=== PATIENT | female | born 1975 | race Caucasian/White ===

== ENCOUNTER 2020-03-27 11:08 | Outpatient (CLI) | payer OTHER, SELFPAY ==
[2020-03-27 11:22] LABS: Basophils Percent Auto 0.4 % (0.2-1.2); Eosinophils Absolute Auto 0.2 K/mm3 (0-0.3); Eosinophils Percent Auto 4.5 % (0-4.4); Hematocrit 39.1 % (37.0-47.0); Immature Granulocyte Absolute 0.01 K/mm3 (0.00-0.031); Immature Granulocyte Percent A 0.2 % (0-0.5); Lymphocytes Absolute Auto 1.74 K/mm3 (0.9-3.2); Lymphocytes Percent Auto 32.9 % (18.3-44.2); Mean Corpuscular HGB Conc 33.2 g/dl (32-36); Mean Corpuscular Hemoglobin 31.6 pg (26-34); Mean Corpuscular Volume 95.1 fl (80-100); Mean Platelet Volume 8.7 fl (7.4-10.4); Monocytes Absolute Auto 0.5 K/mm3 (0.1-0.6); Monocytes Percent Auto 8.7 % (2.6-8.5); Neutrophils Absolute Auto 2.8 K/mm3 (1.3-6.7); Neutrophils Percent Auto 53.3 % (45.5-73.1); Platelet Count Result 259 k/mm3 (150-375); Red Blood Count 4.11 M/mm3 (4.2-5.4); Red Cell Distribution Width 14.1 % (11.5-14.5); White Blood Count 5.3 K/mm3 (4.5-10.0)
[2020-03-29 15:19] LABS: Lyme Disease Ab (IgM), Blot Negative (Negative); Lyme Disease Ab(IgG), Blot Negative (Negative)
== END 2020-03-27 11:09 | disposition home or self-care (01) ==
PROVIDERS: PCP Family Medicine; Visit Provider Physician Assistant Medical
DX: D72.9 Disorder of white blood cells, unspecified (principal)
CPT/HCPCS: 36415; 85025; 86617

== ENCOUNTER 2020-10-27 09:07 | Outpatient (CLI) | payer OTHER, SELFPAY ==
--- NOTE | ~2020-10-27 | MM_ITS ---
EXAMINATION: MM screening latanya BI w penelope HISTORY: Screening TECHNIQUE: Craniocaudal and mediolateral oblique 3-D tomosynthesis images were obtained and synthetic 2-D images were generated. CAD analysis was submitted and interpreted. COMPARISON: 12/01/2018 BREAST PARENCHYMAL COMPOSITION: There are scattered areas of fibroglandular density. FINDINGS: There is no evidence of suspicious mass, calcification, or architectural distortion to sugg est malignancy in either breast. There has been no suspicious interval change. IMPRESSION: 1. No mammographic evidence of malignancy. 2. Recommend routine screening mammography in one year. BI-RADS Category 1: Negative Reviewed, dictated and finalized at location A. 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
== END 2020-10-27 09:08 | disposition home or self-care (01) ==
PROVIDERS: PCP Family Medicine
DX: Z12.31 Encounter for screening mammogram for malignant neoplasm of breast (principal)
CPT/HCPCS: 77063; 77067

== ENCOUNTER 2020-12-11 08:02 | Emergency (ER) | payer OTHER, SELFPAY ==
--- NOTE | 2020-12-11 08:19 | ED.URI ---
HPI - URI/Sore Throat General Chief Complaint: Upper Respiratory Infection Stated Complaint: possible sinus infection Time Seen by Provider: 12/11/20 08:28 Source: patient and RN notes reviewed Mode of arrival: ambulatory Limitations: no limitations History of Present Illness HPI Narrative: 45-year-old female presents concern for 4-day history of nasal congestion, rhinorrhea, facial pressure, cough, chest congestion. 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 Reports she has received the first dose of the code vaccine, has not received second dose. Reports she has been taking Tylenol, Aleve and has not had a fever. She denies loss of taste and smell. She denies shortness of breath MD elicited complaint: cough Related Data Home Medications Medication Instructions Recorded Confirmed fluoxetine [Prozac] 60 mg PO DAILY 12/11/20 12/11/20 levonorgestrel [Mirena] 1 device INTRAUTERINE ONCE 12/11/20 12/11/20 sumatriptan succinate [Imitrex] 100 mg PO ONCE 12/11/20 12/11/20 Allergies Allergy/AdvReac Type Severity Reaction Status Date / Time chlorphentermine Allergy Unknown Unknown Verified 12/11/20 08:26 diphenhydramine Allergy Unknown Unknown Verified 12/11/20 08:26 phenylephrine Allergy Unknown Unknown Verified 12/11/20 08:26 phenylpropanolamine Allergy Unknown Unknown Verified 12/11/20 08:26 Review of Systems Review of Systems: Narrative: CONSTITUTIONAL: Reports malaise. Denies chills, sweats, or fever. EYES: Denies visual changes, redness, or discharge. ENT: Reports rhinorrhea, congestion, sinus pain. Denies otalgia and sore throat. CARDIOVASCULAR: Denies chest pain, palpitations, or edema. RESPIRATORY: Reports cough. Denies dyspnea. GASTROINTESTINAL: Denies abdominal pain, nausea, vomiting, diarrhea SKIN: Denies rash or itching. MUSCULOSKELETAL: Denies myalgia. NEUROLOGIC: Denies headache. All systems reviewed & are unremarkable except as noted in HPI and below PMFSH Past Medical History Medical History BMI 30.0-30.9,adult Healthy female adult Surgical History Surgical History No history of previous surgery Family History Family History Grandparent Cerebrovascular accident, Onset Age: 76 Family history of elevated blood lipids Family history of malignant neoplasm, Onset Age: 67 Family history of lung cancer, Onset Age: 67 Diabetes mellitus Father Hypertension Mother Hypertension Sibling Family history of diabetes mellitus in first degree relative Other Rheumatoid arthritis Other Family history of congestive heart failure Family history of coronary artery disease Social History Social History Smoking status: Never smoker Second hand tobacco smoke exposure: No Alcohol intake: current Gender identity (if verbalized by the patient): Female Comments At time of signature, agree with nursing past medical, surgical, social and family history. There is no relevant family history pertinent to the presenting complaint Exam Narrative: Exam Narrative: GENERAL: Well-appearing, well-nourished, and in no acute distress. HEAD: Normocephalic EYES: PERRLA, conjunctivae clear ENT: Nares clear, turbinates edematous and erythematous, clear discharge. Mucous membranes moist. TM pearly malave with dull light reflex bilaterally; no tragal tenderness. Oropharynx not erythematous without lesions. Tonsils not enlarged and without exudate, no drooling, no hoarseness, no trismus, uvula midline. NECK: Supple. No lymphadenopathy CHEST: Clear to auscultation, breath sounds equal. No wheezing, rhonchi, rales, or stridor. No respiratory distress, speaks in full sentences. HEART: Regular rate and rhythm. No murmur heard. SKIN: Warm, dry, no rash. NEURO: Alert and oriented x3. PSYCH: Normal mood and affect Course Cou
[2020-12-11 08:23] VITALS: BP 132/80; PULSE 85; RESP 16; TEMP 36.9; O2SAT 99
== END 2020-12-11 08:43 | disposition home or self-care (01) ==
PROVIDERS: Emergency Provider Nurse Practitioner; PCP Family Medicine
DX: U07.1 COVID-19 (principal)
CPT/HCPCS: 87426; 99213; C9803; G0463

== ENCOUNTER 2021-01-25 14:40 | Emergency (ER) | payer OTHER, SELFPAY ==
--- NOTE | ~2021-01-25 | XR_ITS ---
EXAMINATION: XR chest 1V portable INDICATION: Fever TECHNIQUE: Portable AP chest at 1508 hours COMPARISON: 09/06/2015 FINDINGS: The lungs are free of acute opacities. There is no pleural effusion or pneumothorax. The ca rdiomediastinal silhouette is normal. The visualized bones and soft tissues are unremarkable. IMPRESSION: 1. No acute cardiopulmonary abnormality. Reviewed, dictated and finalized at location A. CTOR OF PULMONARY UNIT
[2021-01-25 14:47] VITALS: BP 130/75; PULSE 126; RESP 14; TEMP 37.1; O2SAT 98
[2021-01-25 15:11] VITALS: BP 114/63; PULSE 114; RESP 19; O2SAT 100
[2021-01-25 15:13] LABS: Basophils Percent Auto 0.3 % (0.2-1.2); Eosinophils Percent Auto 0.1 % (0-4.4); Hematocrit 40.1 % (37.0-47.0); Hemoglobin 13.4 g/dL (12.0-15.0); Immature Granulocyte Absolute 0.04 K/mm3 (0.00-0.031); Immature Granulocyte Percent A 0.4 % (0-0.5); Lymphocytes Absolute Auto 0.78 K/mm3 (0.9-3.2); Lymphocytes Percent Auto 6.9 % (18.3-44.2); Mean Corpuscular HGB Conc 33.4 g/dl (32-36); Mean Corpuscular Hemoglobin 31.2 pg (26-34); Mean Corpuscular Volume 93.5 fl (80-100); Mean Platelet Volume 8.7 fl (7.4-10.4); Monocytes Absolute Auto 0.8 K/mm3 (0.1-0.6); Monocytes Percent Auto 7.3 % (2.6-8.5); Neutrophils Absolute Auto 9.7 K/mm3 (1.3-6.7); Platelet Count Result 247 k/mm3 (150-375); Red Blood Count 4.29 M/mm3 (4.2-5.4); Red Cell Distribution Width 13.3 % (11.5-14.5); White Blood Count 11.4 K/mm3 (4.5-10.0)
[2021-01-25] MEDS: SODIUM CHLORIDE 0.9% IV 1,000 ML 999 ML IV CONT (15:22)
[2021-01-25 15:23] LABS: INR 1.1; Prothrombin Time 14.3 Seconds (11.1-14.7)
[2021-01-25 15:24] LABS: Partial Thromboplastin Time 31.2 SECONDS (22.3-36.8)
[2021-01-25 15:27] LABS: Lactic Acid Reflex 1.2 mmol/L (0.7-2.1)
[2021-01-25 15:36] LABS: Appearance Urine Cloudy (Clear); Bilirubin Urine 1+ (Negative); Blood Urine 3+ (Negative); Color Urine Yellow (Yellow); Glucose Urine UA Negative (Negative); Ketones Urine Trace mg/dL (Negative); Leukocyte Esterase Ur 3+ LEU/UL (Negative); Nitrate Urine Positive (Negative); Protein Urine 3+ mg/dL (Negative); Specific Grav Ur 1.025 (1.001-1.035); pH Urine 5.5 (5.0-9.0)
[2021-01-25 15:39] LABS: Add Urine Microscopic? YES
[2021-01-25 15:41] LABS: Squamous Epithelial Cell Urine Few /hpf (Few); WBC Urine >75 /hpf (0-3)
[2021-01-25 15:43] VITALS: BP 113/69; PULSE 93; RESP 18; O2SAT 97
[2021-01-25 15:43] LABS: Bacteria Urine 1+ /hpf
[2021-01-25 16:34] LABS: Alanine Aminotransferase 18 U/L (4-35); Albumin Level 4.3 g/dL (3.5-5.1); Alkaline Phosphatase 116 U/L (38-126); Anion Gap 7 mmol/L (8-16); Aspartate Amino Transferase 21 U/L (14-36); Bilirubin,Total 1.1 mg/dL (0.2-1.3); Blood Urea Nitrogen 15 mg/dL (7-17); Calcium 9.8 mg/dL (8.4-10.2); Carbon Dioxide 27 mmol/L (22-30); Chloride 104 mmol/L (98-107); Estimated CRCL calculation 79 ml/min; Estimated Glomerular Filt Rate 60; Glucose 133 mg/dL (65-105); Lipase 24 U/L (23-300); Potassium 4.1 mmol/L (3.4-5.0); Sodium 138 mmol/L (137-145)
--- NOTE | 2021-01-25 16:34 | ED.FEVER ---
HPI - Fever General Chief Complaint: Fever Stated Complaint: fever Time Seen by Provider: 01/25/21 14:56 History of Present Illness HPI Narrative: Patient is a 45-year-old female who presents to the ER with fevers. Ongoing for 2 days. Associate with night sweats. She reports urinary frequency but no burning. No flank pain. Patient has been immunized against Covid but has also had Covid in the past. No known flu exposures. She does endorse body aches. No alleviating factors and due to persistent nature fevers opted to come for evaluation. Related Data Home Medications Medication Instructions Recorded Confirmed levonorgestrel [Mirena] 1 device INTRAUTERINE ONCE 12/11/20 12/11/20 sumatriptan succinate [Imitrex] 100 mg PO ONCE 12/11/20 12/11/20 Allergies Allergy/AdvReac Type Severity Reaction Status Date / Time chlorphentermine Allergy Unknown Unknown Verified 01/25/21 15:11 diphenhydramine Allergy Unknown Unknown Verified 01/25/21 15:11 phenylephrine Allergy Unknown Unknown Verified 01/25/21 15:11 phenylpropanolamine Allergy Unknown Unknown Verified 01/25/21 15:11 Review of Systems Review of Systems: All systems reviewed & are unremarkable except as noted in HPI and below Constitutional: Constitutional: Denies chills, Denies fatigue and Reports fever(s) Comments: Night sweats ENT: Denies nasal congestion and Denies sore throat Cardiovascular: Cardiovascular: Denies chest pain, Denies rapid heart rate and Denies radiating jaw, neck or arm pain Respiratory: Respiratory: Denies cough and Denies dyspnea Gastrointestinal: Gastrointestinal: Denies abdominal pain, Denies nausea and Denies vomiting Genitourinary: Genitourinary: Reports nocturia, Denies dysuria and Denies flank pain PMF Past Medical History Medical History (Updated 01/25/21 @ 16:46 by Chris Germain MD) Anxiety disorder, unspecified Behcet's disease BMI 29.0-29.9,adult BMI 30.0-30.9,adult Healthy female adult Migraine, unspecified, intractable, with status migrainosus Palindromic rheumatism Surgical History Surgical History No history of previous surgery Family History Family History Grandparent Cerebrovascular accident, Onset Age: 76 Family history of elevated blood lipids Family history of malignant neoplasm, Onset Age: 67 Family history of lung cancer, Onset Age: 67 Diabetes mellitus Father Hypertension Mother Hypertension Sibling Family history of diabetes mellitus in first degree relative Other Rheumatoid arthritis Other Family history of congestive heart failure Family history of coronary artery disease Social History Social History Smoking status: Former smoker Second hand tobacco smoke exposure: No Alcohol intake: current Gender identity (if verbalized by the patient): Female Exam Narrative: Exam Narrative: GENERAL: Well-appearing, well-nourished, and in no acute distress. HEAD: Normocephalic, atraumatic. ENT: Mucous membranes moist. CHEST: Clear to auscultation. No respiratory distress. HEART: Tachycardic and regular. Normal peripheral pulses. ABDOMEN: Soft, nontender, nondistended. No CVA tenderness EXTREMITIES: Normal range of motion. No edema. SKIN: Warm, finally of sweat, no rash. NEURO: Alert and oriented x3. Course Reevaluation(s) Reevaluation #1: Patient informed of results. Ceftriaxone given here. Tachycardia improved with IV fluid. Will treat as early pyelonephritis given the fever night sweats. Date: 01/25/21 Time: 16:40 Vital Signs Vital signs: Vital Signs Temperature 98.8 F 01/25/21 14:47 Pulse Rate 126 H 01/25/21 14:47 Respiratory Rate 14 01/25/21 14:47 Blood Pressure 130/75 01/25/21 14:47 Pulse Oximetry 98 01/25/21 14:47 Temperature 98.8 F 01/25/21 14:47 Pulse Rate 93 01/25/21 15:43 Respiratory Rate
[2021-01-25 16:45] VITALS: BP 107/69; PULSE 93; RESP 17; O2SAT 97
[2021-01-25 17:00] LABS: CRP 29.3 mg/dL (<1.0)
== END 2021-01-25 16:52 | disposition home or self-care (01) ==
PROVIDERS: Emergency Medicine Emergency Medical Services; Emergency Provider Emergency Medicine; PCP Family Medicine
DX: N39.0 Urinary tract infection, site not specified (principal); F41.9 Anxiety disorder, unspecified; M12.30 Palindromic rheumatism, unspecified site; Z86.16 Personal history of COVID-19; Z87.891 Personal history of nicotine dependence
CPT/HCPCS: 36415; 71045; 80053; 81001; 83605; 83690; 85025; 85610; 85730; 86140; 87040; 87077; 87086; 87088; 87186; 87804; 96361; 96365; 99284; J0696; J7030

== ENCOUNTER 2022-09-06 07:08 | Outpatient (CLI) | payer OTHER, SELFPAY ==
[2022-09-06 07:43] LABS: Basophils Absolute Auto 0.1 K/mm3 (0.0-0.1); Basophils Percent Auto 0.9 % (0.2-1.2); Eosinophils Absolute Auto 0.3 K/mm3 (0-0.3); Eosinophils Percent Auto 5.2 % (0-4.4); Hematocrit 41.3 % (37.0-47.0); Hemoglobin 13.8 g/dL (12.0-15.0); Immature Granulocyte Absolute 0.02 K/mm3 (0.00-0.031); Immature Granulocyte Percent A 0.4 % (0-0.5); Lymphocytes Absolute Auto 2.41 K/mm3 (0.9-3.2); Lymphocytes Percent Auto 43.3 % (18.3-44.2); Mean Corpuscular HGB Conc 33.4 g/dl (32-36); Mean Corpuscular Hemoglobin 31.6 pg (26-34); Mean Corpuscular Volume 94.5 fl (80-100); Mean Platelet Volume 8.4 fl (7.4-10.4); Monocytes Absolute Auto 0.5 K/mm3 (0.1-0.6); Monocytes Percent Auto 8.1 % (2.6-8.5); Neutrophils Absolute Auto 2.3 K/mm3 (1.3-6.7); Neutrophils Percent Auto 42.1 % (45.5-73.1); Platelet Count Result 286 k/mm3 (150-375); Red Blood Count 4.37 M/mm3 (4.2-5.4); Red Cell Distribution Width 13.7 % (11.5-14.5); White Blood Count 5.6 K/mm3 (4.5-10.0)
[2022-09-06 07:57] LABS: Alanine Aminotransferase 38 U/L (6-35); Albumin Level 4.4 g/dL (3.5-5.1); Alkaline Phosphatase 98 U/L (38-126); Anion Gap 9 mmol/L (8-16); Aspartate Amino Transferase 35 U/L (14-36); Bilirubin,Total 0.8 mg/dL (0.2-1.3); Blood Urea Nitrogen 17 mg/dL (7-17); Calcium 9.2 mg/dL (8.4-10.2); Carbon Dioxide 26 mmol/L (22-30); Chloride 105 mmol/L (98-107); Cholesterol 245 mg/dL (0-200); Estimated Glomerular Filt Rate > 60; Glucose 88 mg/dL (65-110); HDL Direct 57 mg/dL; Potassium 4.1 mmol/L (3.4-5.0); Sodium 140 mmol/L (137-145); Triglycerides 114 mg/dL (<150)
[2022-09-06 08:10] LABS: LDL Cholesterol Direct 146 mg/dL
== END 2022-09-06 07:09 | disposition home or self-care (01) ==
LOC: ANHLAB 07:10
PROVIDERS: PCP Family Medicine; Visit Provider Family Medicine
DX: R73.09 Other abnormal glucose (principal); F41.9 Anxiety disorder, unspecified; K21.9 Gastro-esophageal reflux disease without esophagitis; Z13.220 Encounter for screening for lipoid disorders
CPT/HCPCS: 36415; 80048; 80061; 80076; 83036; 84443; 85025

== ENCOUNTER → 2023-05-12 11:35 | Outpatient (CLI) | payer OTHER, SELFPAY ==
--- NOTE | ~2023-05-12 | XR_ITS ---
XR ankle LT min 3V DATE: 05/12/2023 11:58 INDICATION: Pain and swelling of the lateral ankle after twisting injury TECHNIQUE: 4 views COMPARISON: None FINDINGS: There is mild lateral soft tissue swelling. No fracture or dislocation of the ankle or disr uption of the ankle mortise is detected. Mild plantar and posterior calcaneal enthesopathy. IMPRESSION: Lateral soft tissue swelling; no fracture or dislocation Reviewed, dictated and finalized at location A.
== END ==
PROVIDERS: PCP Chiropractor; Visit Provider Chiropractor
DX: S82.65XA Nondisplaced fracture of lateral malleolus of left fibula, initial encounter for closed fracture (principal); X58.XXXA Exposure to other specified factors, initial encounter
CPT/HCPCS: 73610

== ENCOUNTER 2023-12-22 06:45 | Outpatient (CLI) | payer OTHER, SELFPAY ==
--- NOTE | ~2023-12-22 | XR_ITS ---
XR hip BI 2V w AP pelvis DATE: 12/22/2023 07:15 INDICATION: Low back pain TECHNIQUE: AP pelvis. AP and lateral views of both hips. COMPARISON: None FINDINGS: IUD is present. Severe degenerative disc disease at L4-5 and L5-S1. Normal alignment at the pubic symphysis and sacroiliac joints. No pelvic fracture or bone destruction. No fracture or dislocation, avascular necrosis or bone destr uction of the hips. IMPRESSION: Dextroscoliosis and multi-level degenerative disc disease of lumbar spine No significant abnormality of pelvis or either hip Reviewed, dictated and finalized at location B. 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
--- NOTE | ~2023-12-22 | XR_ITS ---
XR lumbar spine 6V w bending DATE: 12/22/2023 07:15 INDICATION: Low back pain TECHNIQUE: Weightbearing flexion and extension lateral views. AP, lateral, bilateral oblique views, c oned lateral lumbosacral view COMPARISON: None FINDINGS: Mild thoracolumbar dextroscoliosis. Osteopenia. There is approximately 6 mm anterolisthesis at L4-5, relatively stable in flexion, extension and neut ral positions. There is severe degenerative disc disease at L4-5 with near obliteration of L4-5 disc space, eburnati on of the apposing vertebral endplates and vacuum phenomenon. Moderately severe degenerative disease at L5-S1. Mild to moderate degenerative disc disease at L1-2 and L3-4, minimal degenerative disc disease at L2- 3. No spondylolysis. No bone destruction is evident. The pedicles appear intact. Normal alignment at the sacroiliac joints. IUD is noted. IMPRESSION: Grade 1 anterolisthesis at L4-5 Multilevel degenerative disc disease, most severe at L4-5 and L5-S1 Reviewed, dictated and finalized at location B. 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
== END 2023-12-22 06:46 | disposition home or self-care (01) ==
PROVIDERS: PCP Family Medicine; Visit Provider Family Medicine
DX: M51.36 Other intervertebral disc degeneration, lumbar region (principal); M51.37 Other intervertebral disc degeneration, lumbosacral region
CPT/HCPCS: 72114; 73521

== ENCOUNTER 2024-01-30 07:29 | Outpatient (CLI) | payer OTHER, SELFPAY ==
--- NOTE | ~2024-01-30 | MR_ITS ---
MRI of the lumbar spine Clinical History: Spondylosis Technique: Axial T2-weighted images, and sagittal T1-weighted, T2-weighted, and T2 fat-sat images wer e acquired. Findings: No fracture identified. There is 5 mm anterolisthesis of L4 over L5. There is extensive haley ctive marrow edema at the L4-L5 disc space due to underlying degenerative disc disease. At L1-L2, there is no disc bulge or herniation. There is moderate facet arthropathy. No central canal stenosis or neural foraminal narrowing. At L2-L3, there is no disc bulge or herniation. There is moderate facet arthropathy. No central canal stenosis or neural foraminal narrowing. At L3-L4, disc bulge and advanced facet arthropathy result in mild central canal stenosis/thecal sac compression. There is mild left neural foraminal narrowing. Right neural foramen preserved. At L4-L5, there is severe degenerative disc narrowing. Diffuse disc bulge and severe facet arthropath y result in severe spinal canal stenosis/thecal sac compression. There is severe bilateral neural for aminal comprise, left worse than right. At L5-S1, there is advanced degenerative disc narrowing. There is mild disc bulge and moderate facet arthropathy. No central canal stenosis. There is moderate right neural foraminal narrowing. Left neur al foramen preserved. Paravertebral soft tissues are unremarkable. Impression: Severe degenerative spondylosis at L4-L5, with associated 5 mm anterolisthesis at this level. Moderate degenerative spondylosis at L3-L4 and L5-S1. Reviewed, dictated and finalized at [facility]. Impression: Severe degenerative spondylosis at L4-L5, with associated 5 mm anterolisthesis at this level. Moderate degenerative spondylosis at L3-L4 and L5-S1.
== END 2024-01-30 07:30 | disposition home or self-care (01) ==
PROVIDERS: PCP Family Medicine; Visit Provider Family Medicine
DX: M47.816 Spondylosis without myelopathy or radiculopathy, lumbar region (principal)
CPT/HCPCS: 72148

== ENCOUNTER 2024-08-07 09:07 | Outpatient (CLI) | payer OTHER, SELFPAY ==
[2024-08-07 09:42] LABS: Hematocrit 42.4 % (37.0-47.0); Hemoglobin 14.3 g/dL (12.0-15.0); Mean Corpuscular HGB Conc 33.7 g/dl (32-36); Mean Corpuscular Hemoglobin 32.9 pg (26-34); Mean Corpuscular Volume 97.7 fl (80-100); Mean Platelet Volume 8.6 fl (7.4-10.4); Platelet Count Result 278 k/mm3 (150-375); Red Blood Count 4.34 M/mm3 (4.2-5.4); Red Cell Distribution Width 13.9 % (11.5-14.5); White Blood Count 4.9 K/mm3 (4.5-10.0)
[2024-08-07 09:54] LABS: Alanine Aminotransferase 40 U/L (6-35); Albumin Level 4.6 g/dL (3.5-5.1); Alkaline Phosphatase 95 U/L (38-126); Anion Gap 9 mmol/L (4-12); Aspartate Amino Transferase 39 U/L (14-36); Bilirubin,Total 1.1 mg/dL (0.2-1.3); Blood Urea Nitrogen 12 mg/dL (7-17); Calcium 9.3 mg/dL (8.4-10.2); Carbon Dioxide 26 mmol/L (22-30); Chloride 102 mmol/L (98-107); Cholesterol 246 mg/dL (0-200); Estimated Glomerular Filt Rate > 60; Glucose 80 mg/dL (65-110); HDL Direct 74 mg/dL; Potassium 4.1 mmol/L (3.4-5.0); Sodium 137 mmol/L (137-145); Triglycerides 119 mg/dL (<150)
[2024-08-07 10:05] LABS: LDL Cholesterol Direct 132 mg/dL
[2024-08-10 05:28] LABS: GGT 46 U/L (3-55)
== END 2024-08-07 09:08 | disposition home or self-care (01) ==
LOC: ANHLAB 09:08
PROVIDERS: PCP Family Medicine; Visit Provider Family Medicine
DX: F41.9 Anxiety disorder, unspecified (principal); Z13.220 Encounter for screening for lipoid disorders; K21.9 Gastro-esophageal reflux disease without esophagitis; R73.09 Other abnormal glucose
CPT/HCPCS: 36415; 80048; 80061; 80076; 82977; 83036; 84443; 85027

== ENCOUNTER 2024-10-12 08:18 | Outpatient (CLI) | payer OTHER, SELFPAY ==
--- NOTE | ~2024-10-12 | MM_ITS ---
EXAMINATION: MM screening latanya BI w penelope HISTORY: Screening TECHNIQUE: Craniocaudal and mediolateral oblique 3-D tomosynthesis images were obtained and synthetic 2-D images were generated. CAD analysis was submitted and interpreted. COMPARISON: Comparison to multiple prior studies sequentially, with oldest reviewed study dated 10/17. BREAST PARENCHYMAL COMPOSITION: Not dense: There are scattered areas of fibroglandular density. FINDINGS: There is no evidence of suspicious mass, calcification, or architectural distortion to sugg est malignancy in either breast. There has been no suspicious interval change. IMPRESSION: 1. No mammographic evidence of malignancy. 2. Recommend routine screening mammography in one year. BI-RADS Category 1: Negative Reviewed, dictated and finalized at location B. 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
== END 2024-10-12 08:19 | disposition home or self-care (01) ==
LOC: ANHIMG 08:23
PROVIDERS: PCP Family Medicine; Visit Provider Nurse Practitioner Obstetrics & Gynecology
DX: Z12.31 Encounter for screening mammogram for malignant neoplasm of breast (principal)
CPT/HCPCS: 77063; 77067

== ENCOUNTER 2024-11-01 00:49 | Day surgery (SDC) | payer OTHER, SELFPAY ==
[2024-10-25 14:24] VITALS: BMI 25.1
--- NOTE | 2024-10-25 14:29 | PC.NURSE ---
Report to the Outpatient Waiting Room, entrance under the green pavilion located off [facility], at time _0900_ on date _[id number]_. Planned Procedure Time: _1000_.? Time changes happen often and if your time is changed the preop area will call you the afternoon before. - You and your visitor will be asked to self-screen and do not enter if you have any COVID symptoms. Please call surgeon if you need to reschedule. - A mask is optional within the hospital at this time. Eat a light breakfast then no food or drink after 8am. No smoking. This includes no chewing gum, candy or mints. Take only the following medications with a SIP of water on the morning of surgery: Take medications per regular schedule. DO NOT STOP ANY OF YOUR OTHER PRESCRIPTION MEDICATIONS PRIOR TO SURGERY EXCEPT THE FOLLOWING Medications to discontinue per physician ____Patient stopping Aspirin 1 week before proceedure per Dr Medel's office. Date to take last dose Please no make-up, nail persian, hairspray, perfume, deodorant, or body powder the day of surgery.? No jewelry (including any body piercings) or valuables the day of surgery, leave them at home.? Please take a shower or bath the night before, or the morning of, surgery with an antibacterial soap.? Wear comfortable, loose fitting clothing.? - Jewelry must be removed prior to entering the operating room.? Rings and piercings that are not removed may be cut off. - The hospital will not accept responsibility for valuables.? - Please leave all valuables, including medications, at home the day of surgery. If you are going home after surgery, a licensed driver guide must drive you home.? - NO public transportation without another adult if you receive anesthesia. - We recommend that an adult stay with you for 24 hours following discharge. - We also recommend that you do not drive, make important decision, drink alcoholic beverages, or take any drugs that were not prescribed by your health care provider for at least 24 hours after your discharge time. Follow any additional instructions given to you from your surgeon. Telephone instructions given to __Kelly__and asked if any additional questions and then verbalized understanding. Patient advised to call surgeon office or pre surgery nurse liaison [phone] if any additional questions.
--- NOTE | ~2024-11-01 | XR_ITS ---
EXAMINATION: XR fluoroscopy no charge DATE: 11/01/2024 10:35 INDICATION: Chronic low back pain. Lumbosacral spondylosis. TECHNIQUE: 10 intraoperative fluoroscopic views of the lumbar spine were obtained. I was not present. Fluoroscopy exposure time was 32 seconds. COMPARISON: None. FINDINGS: There is severe lumbar spondylosis. There are bilateral needles with contrast injections fo r bilateral lumbar medial branch/dorsal ramus blocks at L3, L4, and L5. IMPRESSION: 1. Bilateral medial branch/dorsal ramus blocks at L3, L4, and L5. Reviewed, dictated and finalized at location A. [facility]
--- NOTE | 2024-11-01 05:21 | P.HP_ITS ---
History of Present Illness History of Present Illness Consent: Risks, benefits, and alternatives have been discussed and questions answered. Patient agrees to proceed with procedure. Chief complaint: lumbosacral spondylosis, chronic low back pain Narrative: Lisa Ritter is a 49 year old female with chronic, recalcitrant and disabling bilateral lumbosacral back pain secondary to degenerative spondylosis with failure to respond to aggressive conservative measures including PT, oral and topical analgesics, opioid and nonopioid analgesics, rest, time and activity/behavioral modification over the past 1-2 years who presents for diagnostic/prognostic medial branch blocks of the bilateral L3, L4, L5 medial branches/dorsal ramus(#1) addressing the ipsilateral L4-5, L5-S1 facet joints under fluoroscopic guidance and with contrast control. Review of Systems Review of Systems: Patient denies any new infectious, allergic, cardiopulmonary, neurologic or constitutional symptoms or changes in activity tolerance or exercise capacity including new or progressive SOB/COLLADO, peripheral edema, productive cough, dysuria, nausea/vomiting, diarrhea, weight change, fevers/chills/night sweats, new or progressive neurologic deficit, cognitive or mood changes since last seen, except as documented in the HPI. [facility] Past Medical History Medical History Anxiety disorder, unspecified Broken rib Elevated glucose Healthy female adult Low back pain Lumbar spondylosis Migraine, unspecified, intractable, with status migrainosus Palindromic rheumatism Screening for lipid disorders Shift work sleep disorder Surgical History Surgical History Hx of tonsillectomy No history of previous surgery Family History Family History Grandparent Cerebrovascular accident, Onset Age: 76 Family history of elevated blood lipids Family history of malignant neoplasm, Onset Age: 67 Family history of lung cancer, Onset Age: 67 Diabetes mellitus Father Hypertension Diabetes mellitus Mother Hypertension Thyroid activity decreased Pacemaker Sibling Family history of diabetes mellitus in first degree relative Diabetes mellitus Other Rheumatoid arthritis Other Family history of congestive heart failure Family history of coronary artery disease Social History Social History Smoking packs per day: 0.5 Smoking cigarettes per day: 10.0 Smoking status: Current every day smoker Tobacco type: cigarettes Second hand tobacco smoke exposure: No Alcohol intake: current Substance use: never Substance use type: does not use Do You Feel Safe in your Home?: Yes Lack of Transportation: No Lack of Food: Never True Current Housing: I Have Housing Concerned About Future Housing: No Difficulty Paying Gas/Electric Bills: No Difficulty Paying for Meds: No Currently Unemployed: No Education: Bachelor's Degree Difficulty w/ Childcare or Family Care: No Living arrangements: with family Occupation/Education: occupation 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 Gender identity (if verbalized by the patient): Female Meds Home Medications and Allergies Home Medications ?Medication ?Instructions ?Recorded ?Confirmed ?Type levonorgestrel 21 mcg/24 hr (up to 1 device intrauterine ONCE 12/11/20 10/25/24 History 8 years) 52 mg intrauterine device (Mirena) ibuprofen 800 mg tablet 800 mg PO TID PRN pain #270 tabs 04/09/22 10/25/24 Rx hydroxyzine HCl 50 mg tablet See Rx Instructions .Route 07/18/23 10/25/24 Rx .COMPLEX #30 tabs ascorbic acid (vitamin C) 500 mg 500 mg PO DAILY 04/01/24 10/25/24 History capsule calcium carbonate 500 mg PO DAILY 04/01/24 10/25/24 History milk thistle 150 mg capsule 150 mg PO BID 04/01/24 10/25/24 History Se--19 29 mg iron-1 mg See Rx Instructions .Route 07/12/24 10/25/24 Rx tablet (PNV 119-iron fum-folic .COMPLEX #30 tabs acid) aspirin 325 mg tablet 325 mg PO DAILY 08/10/24 10/25/24 History lorazepam 0.5 mg tablet (Ativan) 0.5 mg PO BID PRN anxiety #60 tabs 08/10/24 10/25/24 Rx melatonin 1 mg tablet 1 mg PO QHS 08/10/24 10/25/24 History pantoprazole 40 mg tablet,delayed 40 mg PO QAM 08/10/24 10/25/24 History release (Protonix) sumatriptan succinate 100 mg 100 mg PO ONCE PRN migraine 08/10/24 10/25/24 Rx tablet (Imitrex) headache #10 tabs ondansetron HCl 4 mg tablet 4 mg PO Q8H PRN nausea and 09/22/24 10/25/24 Rx vomiting #20 tabs cholecalciferol (vitamin D3) 125 125 mcg PO DAILY 10/25/24 10/25/24 History mcg (5,000 unit) tablet (Vitamin D3) cyanocobalamin (vitamin B-12) 5,000 mcg sublingual DAILY 10/25/24 10/25/24 History 5,000 mcg sublingual tablet (Vitamin B-12) magnesium 200 mg tablet 200 mg PO DAILY 10/25/24 10/25/24 History vitamin E 400 unit tablet 400 unit PO DAILY 10/25/24 10/25/24 History zinc 50 mg tablet 50 mg PO DAILY 10/25/24 10/25/24 History fluoxetine 20 mg capsule See Rx Instructions .Route 10/31/24 Rx .COMPLEX #90 caps fluoxetine 40 mg capsule See Rx Instructions .Route 10/31/24 Rx .COMPLEX #90 caps Allergies Allergy/AdvReac Type Severity Reaction Status Date / Time chlorphentermine Allergy Unknown Unknown Verified 10/25/24 14:17 diphenhydramine Allergy Unknown Unknown Verified 10/25/24 14:17 phenylephrine Allergy Unknown Unknown Verified 10/25/24 14:17 phenylpropanolamine Allergy Unknown Unknown Verified 10/25/24 14:17 Exam Narrative: The patient's physical exam is essentially unchanged from prior examination on 08/16/2024. Specifically, patient demonstrates normal lung capacity, tidal volume and respiratory rate without wheezes, crackles, rales or rubs. Heart rate and rhythm are regular without murmurs, gallops or rubs. No JVD. Pulses 2+ globally without increasing peripheral edema. AAOx3 with no evidence of confusion, intoxication or altered mental state, NC/AT without acute distress or altered consciousness. Speech, cognition, mood, insight and judgment at baseline and within normal limits. Assessment and Plan Assessment and plan (1) Lumbosacral spondylosis: Code(s): M47.817 - Spondylosis without myelopathy or radiculopathy, lumbosacral region Status: Acute (2) Chronic low back pain: Code(s): M54.50 - Low back pain, unspecified; G89.29 - Other chronic pain Status: Acute Plan proceed as planned with diagnostic/prognostic medial branch/dorsal ramus blocks at L3, L4, L5 ( # 1) A dressing the bilateral L4-5, L5-S1 facet joints under fluoroscopic guidance with contrast control.
--- NOTE | 2024-11-01 05:25 | WPDHPUPDATE1 ---
History and Physical Update Update Date/Time: 11/01/24 05:25 History and Physical has been reviewed, including an updated exam of the patient. There are NO changes in the patient's condition. Risks, benefits, and alternatives have been discussed and questions answered. Patient agrees to proceed with procedure.
--- NOTE | 2024-11-01 05:26 | W.PM.PROC2 ---
Procedure Note - Detailed Date of Procedure 11/01/24 Pre-op Diagnosis lumbosacral spondylosis, chronic low back pain Post-op Diagnosis Same Procedure Performed Diagnostic bilateral Lumbar Medial Branch/Dorsal Ramus Blocks at L3, L4, L5 Treating the bilateral L4-5, L5-S1 Facet Joints Under Fluoroscopic Guidance and with Contrast Control. ( 4 levels blocked). Surgeon Dilshad Medel MD Document Control Supervisor None. Anesthesia Local Description of Procedure INFORMED CONSENT: Risks, benefits and alternatives to the procedure were discussed in detail with the patient who expressed explicit understanding and consent to proceed. Patient was informed verbally and in written form regarding the risks associated with the procedure including the low risk of serious infection, bleeding/bruising, allergic reaction, nerve or organ injury, paralysis, procedural site pain or discomfort, worsening pain and/or mobility, failure to treat and/or disfigurement. The patient expressed explicit understanding and consent to proceed. All materials required for the procedure were available prior to procedure start. Site and side were marked prior to procedure and confirmed in the presence of the patient. PROCEDURE IN DETAIL: The patient was brought to the procedural suite and placed in the prone position. Patient was made comfortable with use of pillows under the head/chest, hips and ankles. Skin overlying the injection site on the affected side(s) was prepared broadly with ChloraPrep applicator and draped in a sterile manner. Aseptic technique was used throughout. The endplates of the vertebral bodies at the site(s) of interest were aligned in the AP view. Ipsilateral oblique angulation was utilized to optimize visualization of the intersection between the superior articulating process and transverse process at each target site. Local anesthesia was established by infiltration with approximately 5 mL of 1% lidocaine via a 1-1/2 inch 27-gauge needle. A 25-gauge 3.5 inch Quincke spinal needle was advanced until the needle tip contacted periosteum at the target site, right L3. Lateral view was utilized to confirm the appropriate placement of the needle tip just anterior to the facet line and superior to the pedicle. In the Lateral view, 0.25 mL of Omnipaque 300 contrast medium was injected after negative aspiration for CSF, blood or other bodily fluid, showing appropriate extra-articular spread of contrast without evidence of intravascular, foraminal or intrathecal placement. A 0.5 mL solution of 0.5% PF bupivacaine was injected after negative repeat aspiration. Appropriate spread of the injectate was confirmed with washout of previously injected contrast. No parasthesias were elicited. Needle was removed completely intact without difficulty. [The same exact procedure was repeated for all remaining levels on the ipsilateral side, right L4, L5 medial branches/dorsal ramus, modified as necessary to accommodate for the new target location with identical findings and results and no evidence of complication.] [The same exact procedure was repeated for all remaining levels on the contralateral side, left L3, L4, L5 medial branches/dorsal ramus, modified as necessary to accommodate for the new target location with identical findings and results and no evidence of complication.] Images were saved and documented in the patient chart. Patient's skin was cleaned and sterile bandage applied. The patient tolerated the procedure well. The patient was transported to the recovery area in stable condition where they were observed for an appropriate amount of time prior to discharge, without evidence of complication. Patient was instructed on the appropriate completion of a pain diary over the next 12-24 hours. The patient was instructed to avoid excessive activity for the next 48 hours, including climbing and frequent use of stairs. Showers only for 48 hours. They were instructed not to drive or operate heavy machinery for 24 hours. They are to monitor for severe headaches, fevers, chills, night sweats, erythema/swelling at the site or any other signs of infection, bleeding/bruising, bowel or bladder changes as well as new pain, weakness or numbness in the upper or lower extremity. Should they notice these changes, they are instructed to call our office immediately or report directly to the nearest Emergency Department if no answer or if after posted office hours. COMPLICATIONS: None COMMENTS: None CONTRAST WASTED: 28.5mL Omnipaque 300. Complications No immediate complications Condition Stable Disposition Same day [facility] Billing Surgery - Charge Forward: Surgery Billing
[2024-11-01 08:39] VITALS: BMI 25.7
[2024-11-01 10:08] VITALS: BP 161/99; PULSE 75; RESP 14; O2SAT 96
[2024-11-01 10:18] VITALS: BP 154/98; PULSE 69; RESP 14; O2SAT 97
[2024-11-01] MEDS: BUPivacaine HCL 0.25% PF 10 ML VIAL INFILTRATE (10:19)
[2024-11-01 10:25] VITALS: BP 153/93; PULSE 80; RESP 16; O2SAT 100
--- OUTSIDE RECORDS SUMMARY | 2024-11-06 10:40 | XMS_ITS | Encounter Summary ---
Author Organization [facility] Address [address] [place] [address]. [place] [address] [place] [address] Care Team Providers Care Tour Driver Name Role Phone Unavailable Primary Care Provider Unavailabl e Encounter Details Date Type Department Care Team (Late st Contact Info) Description 01/20/[address] [facility] [address] [place] [address] Jose Alfredo Jaramillo MD Social History Tobacco Use Types Packs/Day Years Used Date Smoking Tobacco: Never Assessed Comments Unknown Sex and Gender Information Value Date Recorded Sex Assigned at Not on file Legal Sex Female 8:22 PM CDT Gender Identity Not on file Sexual Orientation Not on file documented as of this encounter Plan of Treatment Not on file documented as of this encounter Visit Diagnoses Not on filedocumented in this encounter
--- OUTSIDE RECORDS SUMMARY | 2024-11-06 10:40 | XMS_ITS | Patient Health Summary ---
Author Organization [facility] Address [address] [facility] [place] [address] Care Team Providers Care Sweatband Perforator Name Role Phone Unavailable Primary Care Provider Unavailabl e Note from [facility],non-owned Affiliates and Associated Physician Practices is amultiple site organization consisting of ambulatory clinics and hospital sitesin [place], [place], [place] and [place]. This disclosure is being madepursuant to the Care Everywhere program and may not contain all information available regarding this patient. Last updated 18.[facility] Social History Tobacco Use Types Packs/Day Years Used Date Smoking Tobacco: Never Assessed Sex and Gender Information Value Date Recorded Sex Assigned at Not on file Gender Identity Not on file Sexual Orientation Not on file Procedures * DERMATOPATHOLOGY(Performed 10/27/2020) * DERMATOPATHOLOGY(Performed 01/07/2020) * DERMATOPATHOLOGY(Performed 12/03/2012) Results * DERMATOPATHOLOGY (10/27/2020 12:00 AM CHILD WELFARE COUNSELOR) Only the most recent of3 resultswithin the time period is included. Case Report Dermatopathology Report ? Case: [id number] ? Authorizing Provider: ??Pj Ashton MD ?Collected: ? 10/27/2020 12:00 AM ? Ordering Location: ? [facility] Care DermPath Lab ?Received: ?10/31/2020 06:41 AM ? Pathologist: ? Cara Hooper MD ? Specimen: ?Skin, right mid back ? 0 4:20 PM [facility] DERMATOPATHOLOGY LABORATORY Final Diagnosis Specimen A. SKIN, right mid back: INTRADERMAL MELANOCYTIC NEVUS (D22.5) EPIDERMAL NECROSIS SUGGESTIVE OF EXCORIATION (L98.499) 0 4:20 PM [facility] DERMATOPATHOLOGY LABORATORY Clinical History Irr nevus vs mm. Path#[id number] 0 4:20 PM [facility] DERMATOPATHOLOGY LABORATORY Gross Description Specimen A: Received is one formalin filled container labeled with the patient's name and designated right mid back. The specimen consists of a shave biopsy measuring 4x3x1 mm. Jar 0. 0 4:20 PM [facility] DERMATOPATHOLOGY LABORATORY Microscopic Description Specimen A. SKIN, right mid back: There are nests of cytologically bland melanocytes within the dermis that mature with depth. The epidermis is focally necrotic and covered with a scale-crust. There is fibrin at the base. 0 4:20 PM [facility] DERMATOPATHOLOGY LABORATORY Disclaimer An external and internal positive and negative controls are appropriate for the histochemical, immunohistochemical and immunofluorescence stain(s) in this case (if any), except where stated explicitly. The performance characteristics of the stain(s) cited in this report were developed and its performance characteristic determined by the Dermatopathology Laboratory at [facility], directed by Dr. Diane Hernández. These tests need not be, and therefore are not, approved by the [place] Food and Drug Administration. The tests are used for clinical purposes. Billing Codes Specimen Charges Stain Charges 96808 1 0 4:20 PM CHILD WELFARE COUNSELOR DERMATOPATHOLOGY LABORATORY Embedded Images 0 4:20 PM CHILD WELFARE COUNSELOR DERMATOPATHOLOGY LABORATORY Pathology/Cytolog y TISSUE SPECIMEN FROM SKIN / Unknown 10/27/2020 10/31/2020 6:41 AM CHILD WELFARE COUNSELOR Pj Ashton MD LAB - PATHOLOGY/CYTO LOGY ORDERABLES DERMATOPATHOLOGY LABORATORY [facility] - Department of Dermatology [facility] Medicine [address] [place] [address], [address] [phone]
--- OUTSIDE RECORDS SUMMARY | 2024-11-06 10:40 | XMS_ITS | Clinical Summary ---
Author Organization [facility] Address [address] [place] [address]. [place] [address] [place] [address] Care Team Providers Care Manager Massage Department Name Role Phone Unavailable Primary Care Provider Unavailabl e Social History Tobacco Use Types Packs/Day Years Used Date Smoking Tobacco: Never Assessed Comments Unknown Sex and Gender Information Value Date Recorded Sex Assigned at Not on file Legal Sex Female 8:22 PM CDT Gender Identity Not on file Sexual Orientation Not on file Plan of Treatment Health Maintenance Due Date Last Done Comments Cervical Cancer Screening Pa p Smear (Age 30 to 64) Every 3 Years 1976 Colorectal Cancer Screening Colonoscopy (10 Years) 1976 Annual Physical 1979 Hepatitis C 1994 DTaP, Tdap and Td Vaccines ( 1 - Tdap) 1995 Hepatitis B Vaccines (1 of 3 - 19+ 3-dose series) 1995 Cervical Cancer Screening Pa p with HPV Testing (Age 30 to 64) Every 5 Years 2006 Cervical Cancer Screening with HPV 2006 Mammogram Screening 2016 COVID-19 Vaccine (2023-2 5 season) 2024 Influenza Adult (#1) 2024 Meningococcal Vaccine Aged Out No angeline alan eligible based on patient's age to complete this topic Pneumococcal Vaccine: Pediat rics (0 to 5 Years) and At-Risk Patients (6 to 64 Years) Aged Out No longer eligible b ased on patient's age to complete this topic RSV Immunizations Under 20 Months Aged Out No longer eligible based on patient's age to complete this topic
--- OUTSIDE RECORDS SUMMARY | 2024-11-06 10:40 | XMS_ITS | Encounter Summary ---
Author Organization [facility] Address [address] [facility] [place] [address] Care Team Providers Care Ticket Printer Name Role Phone Unavailable Primary Care Provider Unavailabl e Encounter Details Date Type Department Care Team (Late st Contact Info) Description 10/31/2020 Lab Requisition [facility] [address] [facility] [place] [address] Pj Ashton MD [address] [facility] [place] [address] Social History Tobacco Use Types Packs/Day Years Used Date Smoking Tobacco: Never Assessed Sex and Gender Information Value Date Recorded Sex Assigned at Not on file Gender Identity Not on file Sexual Orientation Not on file documented as of this encounter Plan of Treatment Not on file documented as of this encounter Procedures Procedure Name Priority Date/Time Associated Diagnosis Comments DERMATOPATHOLOGY Routine 10/27/2020 12:0 0 AM UPPER EXTREMITY SURGEON documented in this encounter Results * DERMATOPATHOLOGY (10/27/2020 12:00 AM UPPER EXTREMITY SURGEON) Case Report Dermatopathology Report ? Case: [id number] ? Authorizing Provider: ??Pj Ashton MD ?Collected: ? 10/27/2020 12:00 AM ? Ordering Location: ? [facility] ?Received: ?10/31/2020 06:41 AM ? Pathologist: ? Cara Hooper MD ? Specimen: ?Skin, right mid back ? 0 4:20 PM [facility] DERMATOPATHOLOGY LABORATORY Final Diagnosis Specimen A. SKIN, right mid back: INTRADERMAL MELANOCYTIC NEVUS (D22.5) EPIDERMAL NECROSIS SUGGESTIVE OF EXCORIATION (L98.499) 0 4:20 PM [facility] DERMATOPATHOLOGY LABORATORY Clinical History Irr nevus vs mm. Path#[id number] 0 4:20 PM [facility] DERMATOPATHOLOGY LABORATORY Gross Description Specimen A: Received is one formalin filled container labeled with the patient's name and designated right mid back. The specimen consists of a shave biopsy measuring 4x3x1 mm. Jar 0. 0 4:20 PM [facility] DERMATOPATHOLOGY LABORATORY Microscopic Description Specimen A. SKIN, right mid back: There are nests of cytologically bland melanocytes within the dermis that mature with depth. The epidermis is focally necrotic and covered with a scale-crust. There is fibrin at the base. 0 4:20 PM [facility] DERMATOPATHOLOGY LABORATORY Disclaimer An external and internal positive and negative controls are appropriate for the histochemical, immunohistochemical and immunofluorescence stain(s) in this case (if any), except where stated explicitly. The performance characteristics of the stain(s) cited in this report were developed and its performance characteristic determined by the Dermatopathology Laboratory at [facility], directed by Dr. Diane Hernández. These tests need not be, and therefore are not, approved by the [place] Food and Drug Administration. The tests are used for clinical purposes. Billing Codes Specimen Charges Stain Charges 83676 1 0 4:20 PM UPPER EXTREMITY SURGEON DERMATOPATHOLOGY LABORATORY Embedded Images 0 4:20 PM UPPER EXTREMITY SURGEON DERMATOPATHOLOGY LABORATORY Pathology/Cytolog y TISSUE SPECIMEN FROM SKIN / Unknown 10/27/2020 10/31/2020 6:41 AM UPPER EXTREMITY SURGEON Pj Ashton MD LAB - PATHOLOGY/CYTO LOGY ORDERABLES DERMATOPATHOLOGY LABORATORY [facility] - Department of Dermatology [facility] Medicine [address] [place] [address], [address] Floor [address] [phone] documented in this encounter Visit Diagnoses Not on filedocumented in this encounter
--- OUTSIDE RECORDS SUMMARY | 2024-11-06 10:40 | XMS_ITS | Referral Summary ---
Author Organization [facility] Address [address] [place] [address] Care Team Providers Care Supply Person Name Role Phone Unavailable Primary Care Provider Unavailabl e Source Comments [facility],non-owned Affiliates and Associated Physician Practices is amultiple site organization consisting of ambulatory clinics and hospital sitesin [place] and [place]. This disclosure is being madepursuant to the Care Everywhere program and may not contain all information available regarding this patient. Last updated 18.[facility] Social History Tobacco Use Types Packs/Day Years Used Date Smoking Tobacco: Never Assessed Sex and Gender Information Value Date Recorded Sex Assigned at Not on file Gender Identity Not on file Sexual Orientation Not on file Plan of Treatment Not on file
--- OUTSIDE RECORDS SUMMARY | 2024-11-06 10:40 | XMS_ITS | Encounter Summary ---
Author Organization [facility] Address [address] [place] [address]. [place], [place] [address] [place] [address] Care Team Providers Care Hand Cigar Maker Name Role Phone Unavailable Primary Care Provider Unavailabl e Encounter Details Date Type Department Care Team (Late st Contact Info) Description 08/12/[address] [facility] [address] [place] [address] , Bipin [place] MD Social History Tobacco Use Types Packs/Day [...]
--- OUTSIDE RECORDS SUMMARY | 2024-11-06 10:40 | XMS_ITS | Encounter Summary ---
Author Organization [facility] Address [address] [place] [address] Care Team Providers Care Director Of Acquisition Marketing Name Role Phone Unavailable Primary Care Provider Unavailabl e Encounter Details Date Type Department Care Team (Late st Contact Info) Description 01/10/2020 Lab Requisition [facility] Care [facility] [address] [facility] [place] [address] Pj Ashton MD [address] [facility] [place] [address] Social History Tobacco Use Types Packs/Day Years Used Date Smoking Tobacco: Never Assessed Sex and Gender Information Value Date Recorded Sex Assigned at Not on file Gender Identity Not on file Sexual Orientation Not on file documented as of this encounter Plan of Treatment Not on file documented as of this encounter Procedures Procedure Name Priority Date/Time Associated Diagnosis Comments DERMATOPATHOLOGY Routine 01/07/2020 12:0 0 AM TIMBER ESTIMATOR documented in this encounter Results * DERMATOPATHOLOGY (01/07/2020 12:00 AM TIMBER ESTIMATOR) Case Report Dermatopathology Report ? Case: [id number] ? Authorizing Provider: ??Pj Ashton MD ?Collected: ? 01/07/2020 12:00 AM ? Ordering Location: ? [facility] ?Received: ?01/10/2020 02:56 PM ? Pathologist: ? Emmy Hernández MD ? Specimen: ?Skin, right eyebrow ? 0 1:51 PM [facility] DERMATOPATHOLOGY LABORATORY Final Diagnosis Specimen A. 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 Check margins. Path # [id number]. 0 1:51 PM [facility] DERMATOPATHOLOGY LABORATORY Gross Description Specimen A: Received is one formalin filled container labeled with the patient's name and designated right eyebrow. The specimen consists of a shave biopsy measuring 19x2h6ns, bisected. The margin is inked green. Jar 0. 0 1:51 PM [facility] DERMATOPATHOLOGY LABORATORY Microscopic Description Specimen A. SKIN, right eyebrow: Aggregates of basaloid (matrical) and shadow cells are surrounded by fibrosis and granulomatous inflammation. This lesion is present at the margin of the specimen. 0 1:51 PM [facility] DERMATOPATHOLOGY LABORATORY Disclaimer An external and internal positive and negative controls are appropriate for the histochemical, immunohistochemical and immunofluorescence stain(s) in this case (if any), except where stated explicitly. The performance characteristics of the stain(s) cited in this report were developed and its performance characteristic determined by the Dermatopathology Laboratory at [facility], directed by Dr. Diane Hernández. These tests need not be, and therefore are not, approved by the [place] Food and Drug Administration. The tests are used for clinical purposes. Billing Codes Specimen Charges Stain Charges 71701 1 0 1:51 PM TIMBER ESTIMATOR DERMATOPATHOLOGY LABORATORY Embedded Images 0 1:51 PM TIMBER ESTIMATOR DERMATOPATHOLOGY LABORATORY Pathology/Cytolog y TISSUE SPECIMEN FROM SKIN / Unknown 01/07/2020 01/10/2020 2:56 PM TIMBER ESTIMATOR Pj Ashton MD LAB - PATHOLOGY/CYTO LOGY ORDERABLES DERMATOPATHOLOGY LABORATORY [facility] - Department of Dermatology [address] [place] [address], 5th Floor Lab [address] [phone] documented in this encounter Visit Diagnoses Not on filedocumented in this encounter
--- OUTSIDE RECORDS SUMMARY | 2024-11-06 10:40 | XMS_ITS | Encounter Summary ---
Author Organization [facility] Address [address] [facility] [place] [address] Care Team Providers Care Home Restoration Service Cleaner Name Role Phone Unavailable Primary Care Provider Unavailabl e Encounter Details Date Type Department Care Team (Latest Contact Info) Description 11/30/2007 6:46 AM CLOUD SUBJECT MATTER EXPERT - 11/30/2007 11:59 PM CLOUD SUBJECT MATTER EXPERT Hospital Encounter [facility] DEFAULT [address] [place] [address] Vicky Rodriges, DO [address] [facility] [address] [place] [address] Discharge Disposition: Home or Self Care Social History Tobacco Use Types Packs/Day Years [...]
--- OUTSIDE RECORDS SUMMARY | 2024-11-06 10:40 | XMS_ITS | Clinical Summary ---
Author Organization [facility] Address [address] [facility] [place] [address] Care Team Providers Care Instrument Maker Name Role Phone Unavailable Primary Care Provider Unavailabl e Source Comments [facility],non-owned Affiliates and Associated Physician Practices is amultiple site organization consisting of ambulatory clinics and hospital sitesin [place], [place], [place] and [place]. This disclosure is being madepursuant to the Care Everywhere program and may not contain all information available regarding this patient. Last updated 18.[facility] Social History Tobacco Use Types Packs/Day Years Used Date Smoking Tobacco: Never Assessed Sex and Gender Information Value Date Recorded Sex Assigned at Not on file Gender Identity Not on file Sexual Orientation Not on file Plan of Treatment Health Maintenance Due Date Last Done Comments COLOGUARD (AGES 45-75) - COL ON CA SCREENING 1976 COLON MONITORING 1976 COLONOSCOPY - COLON CA SCREENING 1976 CT COLONOGRAPHY - COLON CA SCREENING 1976 Colorectal Cancer Screening 1976 FIT - COLON CA SCREENING 1976 FLEX SIG - COLON CA SCREENING 1976 LIPID TESTING 1976 MAMMOGRAM 1976 PAP SMEAR 1976 HIV SCREENING 1991 HEPATITIS C SCREENING 09/01/1994 DTAP/TDAP/TD VACCINES (1 - Tdap) 1995 HEPATITIS B VACCINE (1 of 3 - 19+ 3-dose series) 1995 DEPRESSION SCREENING 11/17/2023 COVID-19 VACCINE (1 - 2023-2 5 season) 2024 INFLUENZA VACCINE (#1) 2024 ZOSTER VACCINE (1 of 2) 2026 HIB VACCINE Aged Out No longer eligi ble based on patient's age to complete this topic HPV VACCINE Aged Out No longer eligi ble based on patient's age to complete this topic MENINGOCOCCAL VACCINE Aged Out No angeline alan eligible based on patient's age to complete this topic PNEUMOCOCCAL VACCINE Aged Out No long er eligible based on patient's age to complete this topic
--- OUTSIDE RECORDS SUMMARY | 2024-11-06 10:41 | XMS_ITS | Encounter Summary ---
Author Organization [facility] Healthcare Address [address] [place] [address] Care Team Providers Care Scrap Preparation Supervisor Name Role Phone Unavailable Primary Care Provider Unavailabl e Encounter Details Date Type Department Care Team (Late st Contact Info) Description 08/19/2013 9:55 AM CDT Hospital Encounter [facility] [place], Liam Baxter, DO [address], [place] [id number] Screening examination for infectious disease Social History Tobacco Use Types Packs/Day Years Used Date Smoking Tobacco: Never Assessed Comments Unknown Sex and Gender Information Value Date Recorded Sex Assigned at Not on file Legal Sex Female 4:25 PM CDT Gender Identity Not on file Sexual Orientation Not on file documented as of this encounter Plan of Treatment Not on file documented as of this encounter Procedures Procedure Name Priority Date/Time Associated Diagnosis Comments HIV-1 AND HIV-2 ANTIBODY, RAPID Routine 08/19/2013 10:00 AM CDT HEPATITIS PANEL, ACUTE Routine 08/19/2013 10:00 AM CDT RPR Routine 08/19/2013 10:00 AM CDT VAGINAL PATHOGEN SCREEN Routine 08/19/2013 9:30 AM CDT CHLAMYDIA TRACHOMATIS/N. GONORRHOEAE, SWAB Routine 08/19/2013 9:30 AM CDT documented in this encounter Results * RPR, serum (08/19/2013 10:00 AM CDT) RPR NONREACTIVE NONREACTIVE 08/19/2013 10:0 0 AM CDT 08/19/2013 10:15 AM CDT Liam Ho DO LAB MICROBIOLOGY - GEN ERAL ORDERABLES Final Result Performing Organization Address [facility] de Phone Number [facility] HISTORICAL RESULTS * HIV-1 and HIV-2 antibody, rapid (08/19/2013 10:00 AM CDT) HIV 1/2 Ab NONREACTIVE NONREACTIVE Comment: Note: ??A Non-Reactive result indicates an absence of detectable HIV-1/2 antibodies in the patient. However, it does not rule out recent exposure or past infection with HIV. 08/19/2013 10:0 0 AM CDT 08/19/2013 10:15 AM CDT Liam Vee Ho DO LAB BLOOD ORDERABLES F inal Result Performing Organization Address [facility] de Phone Number [facility] HISTORICAL RESULTS * (ABNORMAL) Hepatitis panel, acute (08/19/2013 10:00 AM CDT) HepBsAg NONREACT NONREACTIVE Comment: Siemens CentaurXP using JALEEL (chemiluminescent immunoassay) technology. NONREACTIVE: IgM antibodies to Hepatitis B Surface antigen not detected. REACTIVE: IgM antibodies to Hepatitis B Surface antigen detected. Reactive results will be confirmed by neutralization testing. HBsAb (immune status) REACTIVE(H) NONREACTIVE Comment: Siemens CentaurXP using JALEEL (chemiluminescent immunoassay) technology. NONREACTIVE: IgM antibodies to Hepatitis B Surface antibody not detected. REACTIVE: IgM antibodies to Hepatitis B Surface antibody detected. Hep B core IgM NONREACT NONREACTIVE 3 11:44 AM CDT [facility] HISTORICAL RESULTS Comment: Siemens CentaurXP using JALEEL (chemiluminescent immunoassay) technology. NONREACTIVE: IgM antibodies to Hepatitis B Core antigen not detected. EQUIVOCAL: IgM antibodies to Hepatitis B Core antigen may or may not be present. Obtain a ??new specimen and retest. REACTIVE: IgM antibodies to Hepatitis B Core antigen detected. Hep A IgM NONREACT NONREACTIVE Comment: Siemens CentaurXP using JALEEL (chemiluminescent immunoassay) technology. NONREACTIVE: IgM antibodies to Hepatitis A not detected. This does not exclude possibility of exposure to Hepatitis A or early acute infection. EQUIVOCAL:IgM antibodies to Hepatitis A may or may not be present. Suggest recollection and retest. REACTIVE: Antibodies to Hepatitis A detected. Hep C Ab NONREACT NONREACTIVE Comment: Siemens CentaurXP using JALEEL (chemiluminescent immunoassay) technology. NONREACTIVE: Antibodies to Hepatitis C not detected. This does not exclude early acute Hepatitis C infection, possibility of exposure to Hepatitis C, antibodies below detection limit, or to lack of antibody reactivity to the antigen used in this assay. EQUIVOCAL: Antibodies to Hepatitis C may or may not be present. ??Sample to be confirmed by real-time PCR method. REACTIVE: Antibodies to Hepatitis C detected. 08/19/2013 10:0 0 AM CDT 08/19/2013 10:15 AM CDT Liam Ho DO LAB MICROBIOLOGY - GEN ERAL ORDERABLES Final Result [facility] HISTORICAL RESULTS * VAGINAL PATHOGEN SCREEN (08/19/2013 9:30 AM CDT) Trichomonas vaginalis NEGATIVE NEGATIVE GARDNERELLA SCREEN POSITIVE NEGATIVE Hilary species DNA NEGATIVE NEGATIVE 08/19/2013 9:30 AM CDT 08/19/2013 12:27 PM CDT Narrative [facility] HISTORICAL RESULTS - 08/19/2013 1:41 PM CDT A positive result for Hilary, Gardnerella and/or Trichomonas means nucleic acid for Hilary species (C.albicans,C.glabrata,Ckefyr,C.krusei,C.parapsilosis, ?? C.tropicalis),G.vaginalis and/or T.vaginalis,respectively, ?? is present in the sample and indicates the patient has candidasis, bacterial vaginosis, and/or trichomoniasis when ?? consisent with clinical signs and symptoms. Simultaneous ?? infections by more than one organism are common. ? Negative results,for Hilary,Gardnerella,or Trichomonas ?? test suggest the patient does not have candidasis,bacterial vaginosis and/or trichomoniasis, respectively, when consistent with clinical signs and symptoms. us Liam Ho DO LAB BLOOD ORDERABLES F inal Result Performing Organization Address [facility]/ZIP Co de Phone Number [facility] HISTORICAL RESULTS * Chlamydia trachomatis/N. gonorrhoeae, swab (08/19/2013 9:30 AM CDT) Pathologist [facility] C. trachomatis RNA NEGATIVE NEGATIVE Comment: METHOD: ??B-D ProbeTec ET System using Strand Displacement Amplification N. gonorrhoeae RNA NEGATIVE NEGATIVE Comment: METHOD: ??B-D ProbeTec ET system using Strand Displacement Amplification 08/19/2013 9:30 AM CDT 08/19/2013 12:44 PM CDT us Liam Ho DO LAB BODY FLUIDS AND ST OOLS ORDERABLES Final Result [facility] HISTORICAL RESULTS documented in this encounter Visit Diagnoses Diagnosis Screening examination for infectious disease Screening examination for unspecified infectious disease documented in this encounter
--- OUTSIDE RECORDS SUMMARY | 2024-11-06 10:41 | XMS_ITS | Encounter Summary ---
Author Organization [facility] Healthcare Address [address] [place] [address] Care Team Providers Care Line Patrolman Name Role Phone Vishal Perez MD Primary Care Provider [phone] Encounter Details Date Type Department Care Team (Late st Contact Info) Description 03/23/2019 12:01 AM CDT Hospital Encounter [facility] Xavier Nunez MD [address] [place] [phone] Social History Tobacco Use Types Packs/Day Years Used Date Smoking Tobacco: Former Smokeless Tobacco: Never Alcohol Use Standard Drinks/Week Comments Yes 0 (1 standard drink = 0.6 oz pur e alcohol) AUDIT-C Answer Date Recorded Frequency of Alcohol Consumption Monthly or less 03/23/2019 Average Number of Drinks 1 or 2 019 Frequency of Binge Drinking Not on file 05/2019 Comments No Sex and Gender Information Value Date Recorded Sex Assigned at Not on file Legal Sex Female 4:25 PM CDT Gender Identity Not on file Sexual Orientation Not on file documented as of this encounter Medications at Time of Discharge Medication Sig Dispense Quantity Refills Last Filled Start D ate End Date FLUoxetine (PROzac) 40 mg capsule 0 02/24/2019 hydrOXYzine (ATARAX) 50 mg tablet 2 03/08/2019 LORazepam (ATIVAN) 0.5 mg tablet 3 03/13/[address] (PROTONIX) 40 mg EC tablet 2 03/08/2019 SUMAtriptan (IMITREX) 100 mg tablet 3 03/13/2019 documented as of this encounter Plan of Treatment Not on file documented as of this encounter Visit Diagnoses Not on filedocumented in this encounter Care Teams Line Patrolman Relationship Specialty Start Date End Date Vishal Perez MD PCP - General Family Medicine 02/10/19 documented as of this encounter
--- OUTSIDE RECORDS SUMMARY | 2024-11-06 10:41 | XMS_ITS | Encounter Summary ---
Author Organization [facility] Facility Care Team Providers Care Grocery Store Courtesy Clerk Name Role Phone Vishal Perez MD Primary Care Provider [phone] Encounter Details Date Type Department Care Team (Latest Contact Info) Description 03/23/2019 Travel Social History Tobacco Use Types Packs/Day Years [...] on filedocumented in this encounter Care Teams Grocery Store Courtesy Clerk Relationship Specialty Start Date End Date Vishal Perez MD PCP - General Family Medicine 02/10/19 documented as of this encounter
--- OUTSIDE RECORDS SUMMARY | 2024-11-06 10:41 | XMS_ITS | Encounter Summary ---
Author Organization [facility] Healthcare Address [address] [place] [address] Care Team Providers Care Business Process Manager Name Role Phone Unavailable Primary Care Provider Unavailabl e Encounter Details Date Type Department Care Team (Late st Contact Info) Description 02/23/2018 4:30 PM CDT Lab [address] [address] Social History Tobacco Use Types Packs/Day Years [...]
--- OUTSIDE RECORDS SUMMARY | 2024-11-06 10:41 | XMS_ITS | Encounter Summary ---
Author Organization [facility] Healthcare Address [address] [place] [address] Care Team Providers Care Covering Machine Tender Name Role Phone Unavailable Primary Care Provider Unavailabl e Encounter Details Date Type Department Care Team (Latest Contact Info) Description 01/29/2013 1:31 PM CDT Hospital Encounter [facility] OP Xavier Nunez MD [address] [place] [phone] Encounter for routine gynecological examination Social History Tobacco Use Types Packs/Day Years Used Date Smoking Tobacco: Never Assessed Comments Unknown Sex and Gender Information Value Date Recorded Sex Assigned at Not on file Legal Sex Female 4:25 PM CDT Gender Identity Not on file Sexual Orientation Not on file documented as of this encounter Plan of Treatment Not on file documented as of this encounter Visit Diagnoses Diagnosis Encounter for routine gynecological examination documented in this encounter
--- OUTSIDE RECORDS SUMMARY | 2024-11-06 10:41 | XMS_ITS | Encounter Summary ---
Author Organization [facility] Healthcare Address [address] [place] [address] Care Team Providers Care Production Miner Name Role Phone Unavailable Primary Care Provider Unavailabl e Encounter Details Date Type Department Care Team (Latest Contact Info) Description 02/04/2014 8:15 AM CDT Hospital Encounter [facility] Dilshad Mcnally MD [address] [facility] [address] [address] Encounter for routine gynecological examination Social History [...] Procedure Name Priority Date/Time Associated Diagnosis Comments SCAN - LABS 02/10/2014 12:00 AM CDT documented in this encounter Results * SCAN - LABS (02/10/2014 12:00 AM CDT) Narrative 02/10/2014 12:00 AM CDT Ordered by an unspecified provider. us Historical Provider Final Res ult documented in this encounter Visit Diagnoses Diagnosis Encounter for routine gynecological examination documented in this encounter
--- OUTSIDE RECORDS SUMMARY | 2024-11-06 10:41 | XMS_ITS | Encounter Summary ---
Author Organization [facility] Healthcare Address [address] [place] [address] Care Team Providers Care Bus Cleaner Name Role Phone Unavailable Primary Care Provider Unavailabl e Encounter Details Date Type Department Care Team (Latest Contact Info) Description 04/06/2013 3:50 PM CDT Hospital Encounter [facility] OP Sid Carroll MD [address] [facility] [address], [address] [address] Other and unspecified nonspecific immunological findings; Inflammatory polyarthropathy (CMS/HCC) (HCC); Acquired trigger finger Social History Tobacco Use Types Packs/Day Years [...] Procedure Name Priority Date/Time Associated Diagnosis Comments C4 COMPLEMENT Routine 04/06/2013 4:05 PM CDT ANTI-DOUBLE STRANDED DNA ANTIBODIES Routine 04/06/2013 4:05 PM CDT THYROID PEROXIDASE ANTIBODY Routine 04/06/2013 4:05 PM CDT PARVOVIRUS B19 ANTIBODY, IGG AND IGM Routine 04/06/2013 4:05 PM CDT C3 COMPLEMENT Routine 04/06/2013 4:05 PM CDT documented in this encounter Results * Thyroid peroxidase antibody (TPO) (04/06/2013 4:05 PM CDT) Pathologist [facility] Thyroglobulin Antibody <0.9 0.0 - 4.0 IU/mL 04/08/2013 9:[address] [facility] HISTORICAL RESULTS Comment: INTERPRETIVE INFORMATION: Thyroglobulin Antibody ?? A value of 4.0 IU/mL or less indicates a negative result ?? for thyroglobulin antibodies. ?? The Thyroglobulin Antibody assay is being performed using ?? the [employer] Access DxI method. ?? Performed by [facility], ?? [address], [facility] [place] [address] ?? [email or web address], Tejal Groves MD, Lab. Director ?? 04/06/2013 4:05 PM CDT 04/06/2013 5:01 PM CDT us Sid Carroll MD LAB BLOOD ORDERABLES Final Res ult [facility] HISTORICAL RESULTS * (ABNORMAL) Parvovirus B19 antibody, IgG and IgM (04/06/2013 4:05 PM CDT) [facility] Parvovirus IgM 0.14 <=0.89 IV 04/09/2013 12:[address] [facility] HISTORICAL RESULTS Comment: INTERPRETIVE INFORMATION: Parvovirus B19 Antibody, IgM ?0.89 IV or less .......... Negative - No significant ? level of detectable Parvovirus ? B19 IgM antibody. ?0.90 - 1.10 IV ........... Equivocal - Repeat testing in ? 10-14 days may be helpful. ?1.11 IV or geater ........ Positive - IgM antibody to ? Parvovirus B19 detected which ? may indicate a current or ? recent infection. However, low ? levels of IgM antibodies may ? occasionally persist for more ? than 12 months post-infection. ?? The best evidence for current infection is a significant ?? change on two appropriately timed specimens, where both ?? tests are done in the same laboratory at the same time. ?? Appearance of an IgM antibody response normally occurs 7 to ?? 14 days after the onset of disease. Testing immediately ?? post-exposure is of no value without a later convalescent ?? specimen. A residual IgM response may be distinguished from ?? early IgM response to infection by testing sera from ?? patients three to four weeks later for changing levels of ?? specific IgM antibodies. ?? Performed by [facility], ?? [address] [facility] [place] [address] ?? [email or web address], Tejal Groves MD, Lab. Director ?? Parvovirus IgG 4.78(H) <=0.89 IV 04/09/2013 12:[address] [facility] HISTORICAL RESULTS Comment: INTERPRETIVE INFORMATION: Parvovirus B19 Antibody, IgG ?0.89 IV or less .......... Negative - No significant ? level of detectable Parvovirus ? B19 IgG antibody. ?0.90 - 1.10 IV ........... Equivocal - Repeat testing in ? 10-14 days may be helpful. ?1.11 IV or greater ....... Positive - IgG antibody to ? Parvovirus B19 detected which ? may indicate a current or ? past infection. ?? The best evidence for current infection is a significant ?? change on two appropriately timed specimens, where both ?? tests are done in the same laboratory at the same time. ?? 04/06/2013 4:05 PM CDT 04/06/2013 5:01 PM CDT us Sid Carroll MD LAB MICROBIOLOGY - GENERAL ORD ERABLES Final Result [facility] HISTORICAL RESULTS * C3 complement (04/06/2013 4:05 PM CDT) [facility] Complement C3 123 88 - 201 mg/dL 04/08/2013 8:[address] [facility] HISTORICAL RESULTS Comment: REFERENCE INTERVAL: Complement Component 3 ?? Access complete set of age- and/or gender-specific ?? reference intervals for this test in the [facility] ?? Test Directory ([facility]). ?? Performed by [facility], ?? [address], [facility] [place] [address] ?? [email or web address], Tejal Groves MD, Lab. Director ?? 04/06/2013 4:05 PM CDT 04/06/2013 5:01 PM CDT Sid Carroll MD LAB BLOOD ORDERABLES Final Res ult Performing Organization Address [facility] de Phone Number [facility] HISTORICAL RESULTS * C4 complement (04/06/2013 4:05 PM CDT) Complement C4 22 10 - 40 mg/dL 04/08/2013 8:[address] [facility] HISTORICAL RESULTS Comment: REFERENCE INTERVAL: Complement Component 4 ?? Access complete set of age- and/or gender-specific ?? reference intervals for this test in the [facility] ?? Test Directory ([facility]). ?? Performed by [facility], ?? [address] [place] [address] ?? [email or web address], Tejal Groves MD, Lab. Director ?? 04/06/2013 4:05 PM CDT 04/06/2013 5:01 PM CDT Sid Carroll MD LAB BLOOD ORDERABLES Final Res ult Performing Organization Address [facility] de Phone Number [facility] HISTORICAL RESULTS * (ABNORMAL) Anti-double stranded DNA antibodies (04/06/2013 4:05 PM CDT) Pathologist [facility] Anti-ds DNA IgG Ab Detected (H) None Detected 04/08/2013 4:[address] [facility] HISTORICAL RESULTS Comment: INTERPRETIVE INFORMATION: Double-Stranded DNA (dsDNA) ?? Antibody, IgG by IRENE ?? Positivity for anti-double stranded DNA (anti-dsDNA) IgG ?? antibody is a diagnostic criterion of systemic lupus ?? erythematosus (SLE). Specimens are initially screened by ?? enzyme-linked immunosorbent assay (IRENE). All IRENE ?? results reported as detected (positive) are confirmed by ?? a highly specific IFA titer (Crithidia luciliae indirect ?? fluorescent test [MIRIAM]). Some patients with early or ?? inactive SLE may be positive for anti-dsDNA IgG by IRENE ?? but negative by MIRIAM. If the patient is negative by MIRIAM ?? but positive by IRENE and clinical suspicion remains, ?? consider antinuclear antibody (MICH) testing by IFA. ?? Additional information and recommendations for testing may ?? be found at ?? [email or web address]/[email or web address] ?? sueDz/index.html. ?? Performed by [facility], ?? [address] [facility] [address] ?? [email or web address], Tejal Groves MD, Lab. Director ?? Anti-ds DNA (Crithidia) <1:10 <1:10 04/09/2013 3:[address] [facility] HISTORICAL RESULTS Comment: INTERPRETIVE INFORMATION: Double-Stranded DNA (dsDNA) ?? Antibody, IgG by IFA (using Crithidia luciliae) ?? Positivity for anti-double stranded DNA (anti-dsDNA) IgG ?? antibody is a diagnostic criterion of systemic lupus ?? erythematosus (SLE). The presence of the anti-dsDNA IgG ?? antibody is identified by IFA titer (Crithidia luciliae ?? indirect fluorescent test [MIRIAM]). MIRIAM is highly ?? specific for SLE with a sensitivity of 50-60 percent. ?? Some patients with early or inactive SLE may be positive ?? for anti-dsDNA IgG by IRENE but negative by MIRIAM. If the ?? MIRIAM result is negative but the patient has a positive ?? IRENE and clinical suspicion remains, consider antinuclear ?? antibody (MICH) testing by IFA. Additional information and ?? recommendations for testing may be found at ?? http://[email or web address]/AutoimmuneDz/ConnectiveTis ?? sueDz/index.html. ?? Performed by [facility], ?? [address] [facility],[place] [address] ?? [email or web address], Tejal Groves MD, Lab. Director ?? 04/06/2013 4:05 PM CDT 04/06/2013 5:01 PM CDT Sid Carroll MD LAB BLOOD ORDERABLES Final Res ult [facility] HISTORICAL RESULTS documented in this encounter Visit Diagnoses Diagnosis Other and unspecified nonspecific immunological findings Inflammatory polyarthropathy (CMS/HCC) (HCC) Unspecified inflammatory polyarthropathy Acquired trigger finger Trigger finger (acquired) documented in this encounter
--- OUTSIDE RECORDS SUMMARY | 2024-11-06 10:41 | XMS_ITS | Encounter Summary ---
Author Organization [facility] Healthcare Address [address] [place] [address] Care Team Providers Care Cutter Operator Helper Name Role Phone Vishal Perez MD Primary Care Provider [phone] Encounter Details Date Type Department Care Team (Late st Contact Info) Description 03/25/2019 1:45 PM CDT Lab [address] [address] Social History Tobacco Use Types Packs/Day Years [...] as of this encounter Plan of Treatment Pending Results Name Type Priority Associated Diagnoses Date /Time High risk HPV RNA w pap Pathology and Cytology Routine 03/23/2019 12:00 PM CDT HPV 16-18 / 45 RNA genotype with PAP Lab Routine 03/23/2019 12: 00 PM CDT documented as of this encounter Visit Diagnoses Not on filedocumented in this encounter Care Teams Cutter Operator Helper Relationship Specialty Start Date End Date Vishal Perez MD PCP - General Family Medicine 02/10/19 documented as of this encounter
--- OUTSIDE RECORDS SUMMARY | 2024-11-06 10:41 | XMS_ITS | Referral Summary ---
Author Organization [facility] Address [address] [place] [id number] Care Team Providers Care Crusher Loader Equipment Operator Name Role Phone Vishal Perez MD Primary Care Provider [phone] Allergies Active Allergy Reactions Criticality Noted Date Comments Diphenhydramine Hives Medium 03/23/2019 Hives Medications SUMAtriptan (IMITREX) 100 mg tablet 3 9 Active [id number] fum-folic acid-dss (SE-FUNMI 19, WITH DOCUSATE,) 29 mg iron- 1 mg-25 mg tablet Rx: Se-Funmi 19 27-1MG Tablet, TAKE: TAKE ONE TABLET BY MOUTH ONCE DAILY, REFILLS: [address] (PROTONIX) 40 mg EC tablet 2 9 Active LORazepam (ATIVAN) 0.5 mg tablet 3 9 Active levonorgestrel (MIRENA) IUDIndications: 07/2018 by intrauterine route Active ibuprofen (ADVIL,MOTRIN) 600 mg tablet 600 mg Active hydrOXYzine (ATARAX) 50 mg tablet 2 9 Active FLUoxetine (PROzac) 40 mg capsule 0 9 Active calcium-vits P9-Z-O7-mineral s 166.75 mg- 166.75 unit capsule Rx: Calcium 600-200 MG-UNIT Tablet Active ketoconazole (NIZORAL) 2 % cream APPLY CREAM TOPICALLY TWICE DAILY 0 Active vitamin E (vitamin E) 400 unit capsule 400 Units Active Active Problems Problem Noted Date Diagnosed Date Cervical high risk HPV (human papillomavirus) te st positive 03/23/2019 Mirena IUD 07/201810/05/2018 Social History Tobacco Use Types Packs/Day Years Used Date Smoking Tobacco: Former Smokeless Tobacco: Never Alcohol Use Standard Drinks/Week Comments Yes 0 (1 standard drink = 0.6 oz pur e alcohol) AUDIT-C Answer Date Recorded Frequency of Alcohol Consumption Monthly or less 06/08/2020 Average Number of Drinks 1 or 2 020 Frequency of Binge Drinking Not on file 05/18 Personal Safety Answer Date Recorded Getting School Help Needed Not on file 01/31 Comments No Sex and Gender Information Value Date Recorded Sex Assigned at Not on file Legal Sex Female 4:25 PM CDT Gender Identity Not on file Sexual Orientation Not on file Last Filed Vital Signs Vital Sign Reading Time Taken Comments Blood Pressure 118/80 06/08/2020 4:05 PM CDT Pulse 99 03/31/2013 7:18 AM CDT Temperature 37.1 ??C (98.7 ??F) 03/31/2013 7:18 AM CD T Respiratory Rate - - Oxygen Saturation 100% 03/31/2013 7:18 AM CDT Inhaled Oxygen Concentration - - Weight 97.5 kg (215 lb) 06/08/2020 4:05 PM CDT Height 177.8 cm (5' 10 ) 06/08/2020 4:05 PM CDT Body Mass Index 30.85 06/08/2020 4:05 PM CDT Plan of Treatment Not on file Insurance [facility] Care Teams Crusher Loader Equipment Operator Relationship Specialty Start Date End Date Vishal Perez MD PCP - General Family Medicine 02/10/19
--- OUTSIDE RECORDS SUMMARY | 2024-11-06 10:41 | XMS_ITS | Encounter Summary ---
Author Organization [facility] Facility Care Team Providers Care Tubular Riveter Name Role Phone Vishal Perez MD Primary Care Provider [phone] Encounter Details Date Type Department Care Team (Latest Contact Info) Description 05/05/2019 Travel Social History Tobacco Use Types Packs/Day [...] on filedocumented in this encounter Care Teams Tubular Riveter Relationship Specialty Start Date End Date Vishal Perez MD PCP - General Family Medicine 02/10/19 documented as of this encounter
--- OUTSIDE RECORDS SUMMARY | 2024-11-06 10:41 | XMS_ITS | Encounter Summary ---
Author Organization [facility] Address [address] [place] [address] Care Team Providers Care Reservations Sales Supervisor Name Role Phone Vishal Perez MD Primary Care Provider [phone] Reason for Visit * Reason Comments Well Women Visit repeat pap 02/20/18 WNL HPV(+) Encounter Details Date Type Department Care Team (Latest Contact Info) Description 03/23/2019 1:30 PM CDT Office Visit [facility] Obstetrical Gynecology [address] [place] [address] Xavier Nunez MD [address] [place] [address] Encounter for annual routine gynecological examination (Primary Dx); Cervical high risk HPV (human papillomavirus) test positive Social History Tobacco Use Types Packs/Day Years [...] on file documented as of this encounter Last Filed Vital Signs Vital Sign Reading Time Taken Comments Blood Pressure 130/90 03/23/2019 1:48 PM CDT Pulse - - Temperature - - Respiratory Rate - - Oxygen Saturation - - Inhaled Oxygen Concentration - - Weight 98.4 kg (216 lb 14.4 oz) 03/23/2019 1:48 PM CDT Height 177.8 cm (5' 10 ) 03/23/2019 1:48 PM CDT Body Mass Index 31.12 03/23/2019 1:48 PM CDT documented in this encounter Progress Notes * Xavier Nunez MD - 03/23/2019 1:30 PM CDT Well Woman Exam Nilam Ritter, 1975 CHIEF COMPLAINT Well Women Visit (repeat pap 02/20/18 WNL HPV(+)) HPI: LMP: No LMP recorded. (Menstrual status: IUD). Menses: infrequent, with IUD control: IUD - Mirena Concerns for exposure to STDs: No Do you feel threatened at home, school, work, or socially: No Does self breast exams: Yes, regularly Breast complaints: No During the past month: Have you often been bothered by feeling down, depressed, hopeless or anxious? No Have you often been bothered by little interest or pleasure in doing things? No Health Maintenance: Last Pap: 03/02/18 WNL HPV (+) Last Mammo: 12/01/18 B1 Colon: never Bone Density: never OB History: No obstetric history on file. Social history: reports that she has quit smoking. She has never used smokeless tobacco. reports that she drinks alcohol. reports that she does not use drugs. reports that she currently engages in sexual activity and has had partners who are Male. She reports using the following method of control/protection: IUD. Past medical history: Past Medical History: Diagnosis Date ??? Anxiety ??? Colitis ??? Stomach ulcer Past surgical history: History reviewed. No pertinent surgical history. Family history: History reviewed. No pertinent family history. Allergies: Allergies Allergen Reactions ??? Diphenhydramine Hives Hives Medications: Current Outpatient Medications Medication ??? calcium-vits V8-V-X3-minerals 166.75 mg- 166.75 unit capsule ??? FLUoxetine (PROzac) 40 mg capsule ??? hydrOXYzine (ATARAX) 50 mg tablet ??? ibuprofen (ADVIL,MOTRIN) 600 mg tablet ??? levonorgestrel (MIRENA) IUD ??? LORazepam (ATIVAN) 0.5 mg tablet ??? pantoprazole DR (PROTONIX) 40 mg EC tablet ??? [id number] fum-folic acid-dss (SE-FUNMI 19, WITH DOCUSATE,) 29 mg iron- 1 mg-25 mg tablet ??? SUMAtriptan (IMITREX) 100 mg tablet ??? vitamin E 100 unit/0.25 mL drops No current facility-administered medications for this visit. Review of Systems: Review of Systems Constitutional: Negative for appetite change, chills, diaphoresis, fatigue and fever. Eyes: Negative for visual disturbance. Respiratory: Negative for cough and shortness of breath. Cardiovascular: Negative for chest pain. Gastrointestinal: Negative for abdominal distention, abdominal pain, blood in stool, constipation, diarrhea, nausea and vomiting. Endocrine: Negative for polyuria. Genitourinary: Negative for dyspareunia, dysuria, frequency, hematuria, pelvic pain, urgency and vaginal discharge. Musculoskeletal: Negative for back pain. Skin: Negative for rash. Neurological: Negative for dizziness, syncope, light-headedness and headaches. Psychiatric/Behavioral: Negative for self-injury, sleep disturbance and suicidal ideas. The patientis not nervous/anxious. Breast: Negative for tenderness, breast discharge and lump(s). Objective: Blood pressure 130/90, height 177.8 cm (5' 10 ), weight 216 lb 14.4 oz (98.4 kg), not currently . Body mass index is 31.12 kg/m??. Physical Exam General Examination: GENERAL APPEARANCE: well developed, well nourished, in no acute distress. HEAD: atraumatic, normocephalic. NECK/THYROID: thyroid normal, neck supple. LYMPH NODES: no neck, supraclavicular or inguinal adenopathy. HEART: no murmurs, regular rate and rhythm. LUNGS: clear to auscultation bilaterally, good air movement. BREASTS: no masses palpable bilaterally, symmetrical, visually normal. ABDOMEN: no masses palpable, soft, nontender, nondistended, no hernias present. NEUROLOGIC: cranial nerves 2-12 grossly intact. PSYCH: alert, oriented, judgement and insight good, mood/affect normal. Gynecological: EXTERNAL GENITALIA: no lesions, no erythema, no evidence of trauma. URETHRAL MEATUS: normal. URETHRA: nontender, no masses. BLADDER: nontender, no masses. VAGINA: normal mucosa, without lesions or abnormal discharge CERVIX: nontender, without palpable mass, IUD string visible. UTERUS: normal size, shape and consistency, normal mobility, nontender. ADNEXA: no masses or tenderness bilaterally. ANUS: not examined. RECTAL: not examined. Assessment/Plan Diagnoses and all orders for this visit: Encounter for annual routine gynecological examination (Z01.419) (Primary) - ThinPrep Pap with HPV; Future Cervical high risk HPV (human papillomavirus) test positive (R87.810) - ThinPrep Pap with HPV; Future ?? If Pap abnormal, schedule colposcopy. If negative, continue routine screening. Xavier Nunez MD 03/23/2019 documented in this encounter Plan of Treatment Not on file documented as of this encounter Procedures Procedure Name Priority Date/Time Associated Diagnosis Comments THINPREP PAP WITH HPV Routine 03/23/2019 3:37 PM CDT Encounter for annual routine gynecological examination Cervical high risk HPV (human papillomavirus) test positive documented in this encounter Results * (ABNORMAL) ThinPrep Pap with HPV (03/23/2019 3:37 PM CDT) 03/23/2019 3:37 PM CDT 03/24/2019 10:42 AM CDT [facility] - 03/31/2019 9:10 PM CDT [facility] Department of Pathology [address] [place] [id number] Final Report with Addendum Patient Name: ??NILAM RITTERMichelle Address: ??[address] [place] [address], ?? [place], [place] ?? Gender: ??F : ??1975 (Age: 43) Service: ??Laboratory Location: ??Lab Hospital #: ??[id number] Patient Type: ?? Ref Lab Taken: ??03/23/2019 Received: ??03/24/2019 Accessioned:: ??03/26/2019 Reported: ??03/31/2019 Physician(s): Dr. Xavier Nunez M.D. [facility] Diagnosis: Source of Specimen: ? SCREENING IMAGED PAP w/ HPV Specimen Adequacy: ?- Satisfactory for evaluation; endocervical/transformation zone component present General Category: ?- Epithelial cell abnormality Interpretation/Results: ?- Atypical squamous cells of undetermined significance GAGAN Frederick(ASCP) Chris Dudley MD Report Electronically Reviewed and Signed Out By ??Chris Dudley MD ??03/31/2019 21:10:47 Addenda: HPV RNA Test Interpretation HPV Results: POSITIVE for one or more of types 16, 18, 31, 33, 35, 39, 45, 51, 52, 56, 58, 59, 66 and 68. ?? These high/intermediate risk HPV types are associated with dysplasia and some cervical cancers. Genotyping Results: Negative for HPV 16 ? Negative for HPV 18/45 ? Tests performed utilizing Gen-Probe Aptima assay. ?? GAGAN Cobian(ASCP) ??Report Electronically Reviewed and Signed Out By ??GAGAN Cobian(ASCP) ??03/30/2019 11:29:33 ? Specimen(s) Received: A: SCREENING IMAGED PAP w/ HPV Clinical History: Menstrual History: Previous Abnormal Pap Contraceptive History: IUD: Mirena The Pap test is a screening test used to aid in the detection of cervical cancer and its precursors. ??It should not be the sole means by which malignant and premalignant lesions are diagnosed. ??Both false negative and false positive results may occur. ?? It also has poor sensitivity for the detection of endometrial lesions and should not be used to evaluate suspected endometrial abnormalities. ??For these reasons it is most important to obtain Pap tests at regular intervals. The performance characteristics of some immunohistochemical stains, fluorescence in-situ hybridization tests and immunophenotyping by flow cytometry cited in this report (if any) were determined by the Surgical Pathology Department at [facility] as part of an ongoing quality control head program and in compliance with federally mandated regulations drawn from the Clinical Laboratory Improvement Act of 1988 (CLIA '88). ??Some of these tests rely on the use of analyte specific reagents and are subject to specific labeling requirements by the US Food and Drug Administration. ??Such diagnostic tests may only be performed in a facility that is certified by the Department of Health and Human Services as a high complexity laboratory under CLIA '88. The FDA has determined that such clearance or approval is not necessary. ??This test is used for clinical purposes. ??It should not be regarded as investigational or for research. ??Nevertheless, federal rules concerning the medical use of analyte specific reagents require that the following disclaimer be attached to the report: This test was developed and its performance characteristics determined by the Surgical Pathology Department [facility]. ??It has not been cleared or approved by the U. S. Food and Drug Administration. Xavier Nunez MD LAB CYTOLOGY [place] [address], [facility] [phone] documented in this encounter Visit Diagnoses Diagnosis Encounter for annual routine gynecological examination- Primary Cervical high risk HPV (human papillomavirus) test positive Cervical high risk human papillomavirus (HPV) DNA test positive documented in this encounter Historical Medications * This list may reflect changes made after this encounter. calcium-vits O7-P-H4-minerals 166.75 mg- 166.75 unit capsule Rx: Calcium 600-200 MG-UNIT Tablet FLUoxetine (PROzac) 40 mg capsule 0 02/24/2019 hydrOXYzine (ATARAX) 50 mg tablet 2 03/08/2019 ibuprofen (ADVIL,MOTRIN) 600 mg tablet 600 mg levonorgestrel (MIRENA) IUDIndications:0 07/2018 by intrauterine route LORazepam (ATIVAN) 0.5 mg tablet 3 03/13/[address] (PROTONIX) 40 mg EC tablet 2 03/08/2019 [id number]-[id number] fum-folic acid-dss (SE- 19, WITH DOCUSATE,) 29 mg iron- 1 mg-25 mg tablet Rx: Se-Funmi 19 27-1MG Tablet, TAKE: TAKE ONE TABLET BY MOUTH ONCE DAILY, REFILLS: 2 SUMAtriptan (IMITREX) 100 mg tablet 3 03/13/2019 vitamin E 100 unit/0.25 mL drops 400 Units daily 0 added in this encounter Care Teams Reservations Sales Supervisor Relationship Specialty Start Date End Date Vishal Perez MD PCP - General Family Medicine 02/10/19 documented as of this encounter
--- OUTSIDE RECORDS SUMMARY | 2024-11-06 10:41 | XMS_ITS | Encounter Summary ---
Author Organization [facility] Address [address] [place] [address] Phone Care Team Providers Care Clothing Pattern Preparer Name Role Phone Unavailable Primary Care Provider Unavailabl e Encounter Details Date Type Department Care Team (Late st Contact Info) Description 02/20/2018 Orders Only [facility] [place], [place] Xavier Nunez MD [address] [place] [id number] Social History Tobacco Use Types Packs/Day Years [...] Procedure Name Priority Date/Time Associated Diagnosis Comments CYTOLOGY Routine 02/20/2018 2:56 PM CDT documented in this encounter Results * Cytology (02/20/2018 2:56 PM CDT) 02/20/2018 2:56 PM CDT 02/23/2018 7:56 PM CDT Narrative 02/27/2018 1:21 PM CDT [facility] Department of Pathology [address] [place] [id number] Final Report with Addendum ?Patient Name: NILAM RITTER Address: [address] Service: Laboratory ?? [place], [place] [address] Location: Lab Taken: 02/20/2018 Gender: F Received 02/23/2018 : 1975 (Age: 42) Hospital #: [id number] Accessioned: 02/23/2018 ?? Patient Type: CH Ref Lab Reported 02/27/2018 Physician(s): Dr. Xavier Nunez M.D. [facility] ?? Diagnosis: Source of Specimen: ? SCREENING IMAGED PAP w/ HPV Specimen Adequacy: ?- Satisfactory for evaluation; endocervical/transformation zone component present General Category: ?- Negative for intraepithelial lesion or malignancy ?? GAGAN Frederick(ASCP) Kaleigh Lopez M.D. Report Electronically Reviewed and Signed Out By ??Kaleigh Lopez M.D. ??02/27/2018 13:21:53 Addenda: HPV and Genotypes 16 18/45 Interpretation HPV Results: POSITIVE for one or [...] Reviewed and Signed Out By ??GAGAN Cobian(ASCP) ??02/26/2018 15:38:08 ? Specimen(s) Received: A: SCREENING IMAGED PAP w/ HPV Clinical History: Last Menstrual Period: Mirena Contraceptive History: IUD The Pap test is a screening test [...] determined by the Surgical Pathology Department at [facility] as part of an ongoing quality assurance inspector program and in compliance with federally mandated [...] characteristics determined by the Surgical Pathology Department [facility]. ??It has not been cleared or approved by the U. S. Food and Drug Administration. Xavier Nunez MD LAB CYTOLOGY ORDERABLES Fi nal Result documented in this encounter Visit Diagnoses Not on filedocumented in this encounter
--- OUTSIDE RECORDS SUMMARY | 2024-11-06 10:41 | XMS_ITS | Encounter Summary ---
Author Organization [facility] Healthcare Address [address] [place] [address] Care Team Providers Care Lye Boiler Name Role Phone Unavailable Primary Care Provider Unavailabl e Encounter Details Date Type Department Care Team (Latest Contact Info) Description 03/31/2013 7:11 AM CDT - 03/31/2013 10:00 AM CDT Hospital Encounter [facility] ER Pain in joint, multiple sites Social History Tobacco Use Types Packs/Day Years Used Date Smoking Tobacco: Never Assessed Comments Unknown Sex and Gender Information Value Date Recorded Sex Assigned at Not on file Legal Sex Female 4:25 PM CDT Gender Identity Not on file Sexual Orientation Not on file documented as of this encounter Last Filed Vital Signs Vital Sign Reading Time Taken Comments Blood Pressure 128/78 03/31/2013 7:18 AM CDT Pulse 99 03/31/2013 7:18 AM CDT Temperature 37.1 ??C (98.7 ??F) 03/31/2013 7:18 AM CD T Respiratory Rate - - Oxygen Saturation 100% 03/31/2013 7:18 AM CDT Inhaled Oxygen Concentration - - Weight 90.7 kg (200 lb) 03/31/2013 7:18 AM CDT Height 177.8 cm (5' 10 ) 03/31/2013 7:18 AM CDT Body Mass Index 28.7 03/31/2013 7:18 AM CDT documented in this encounter Plan of Treatment Not on file documented as of this encounter Procedures Procedure Name Priority Date/Time Associated Diagnosis Comments MICH BY IFA,IGG Routine 03/31/2013 8:26 AM CDT C4 COMPLEMENT Routine 03/31/2013 8:26 AM CDT SJOGREN'S SYNDROME A/B ANTIBODIES Routine 03/31/2013 8:26 AM CDT CBC WITH AUTO DIFFERENTIAL Routine 03/31/2013 8:26 AM CDT CYCLIC CITRUL PEPTIDE ANTIBODY, IGG Routine 03/31/2013 8:26 AM CDT ERYTHROCYTE SEDIMENTATION RATE Routine 03/31/2013 8:26 AM CDT RHEUMATOID FACTOR Routine 03/31/2013 8:2 6 AM CDT C3 COMPLEMENT Routine 03/31/2013 8:26 AM CDT COMPREHENSIVE METABOLIC PANEL Routine 03/31/2013 8:26 AM CDT documented in this encounter Results * Sjogren's syndrome A/B antibodies (03/31/2013 8:26 AM CDT) SS-A/Ro IgG Antibody 5 0 - 40 AU/mL 04/01/2013 4:[address] [facility] HISTORICAL RESULTS Comment: INTERPRETIVE INFORMATION: SSA (Ro) (MERRY) Ab, IgG ?29 AU/mL or Less ............. Negative ?30 - 40 AU/mL ................ Equivocal ?41 AU/mL or Greater .......... Positive ?? SSA (Ro) antibody is seen in 70-75% of Sjogren syndrome ?? cases, 30-40% of systemic lupus erythematosus (SLE) and ?? 5-10% of progressive systemic sclerosis (PSS). ?? SS-B/La IgG Antibody 0 0 - 40 AU/mL 04/01/2013 4:[address] [facility] HISTORICAL RESULTS Comment: INTERPRETIVE INFORMATION: SSB (La) (MERRY) Ab, IgG ?29 AU/mL or Less ............. Negative ?30 - 40 AU/mL ................ Equivocal ?41 AU/mL or Greater .......... Positive ?? SSB (La) antibody is seen in 50-60% of Sjogren syndrome ?? cases and is specific if it is the only MERRY antibody ?? present. 15-25% of patients with systemic lupus ?? erythematosus (SLE) and 5-10% of patients with progressive ?? systemic sclerosis (PSS) also have this antibody. ?? Performed by [employer], ?? [address] [place] [address] ?? [email or web address], Tejal Groves MD, Lab. Director ?? 03/31/2013 8:26 AM CDT 03/31/2013 8:27 AM CDT Historical Provider LAB BLOOD ORDERABLES Alida l Result Performing Organization Address [facility] de Phone Number [facility] HISTORICAL RESULTS * (ABNORMAL) Erythrocyte sedimentation rate (03/31/2013 8:26 AM CDT) ESR 35(H) 0 - 10 mm/hr 03/31/2013 9:[address] [facility] HISTORICAL RESULTS 03/31/2013 8:26 AM CDT 03/31/2013 8:27 AM CDT Historical Provider LAB BLOOD ORDERABLES Alida l Result Performing Organization Address [facility] de Phone Number [facility] HISTORICAL RESULTS * Rheumatoid factor (03/31/2013 8:26 AM CDT) Rheumatoid Factor < 10.0 0.0 - 13.9 IU/mL 03/31/2013 8:[address] [facility] HISTORICAL RESULTS 03/31/2013 8:26 AM CDT 03/31/2013 8:27 AM CDT Historical Provider LAB BLOOD ORDERABLES Alida l Result [facility] HISTORICAL RESULTS * (ABNORMAL) Comprehensive metabolic panel (03/31/2013 8:26 AM CDT) [facility] Sodium 137 135 - 145 mmol/L 03/31/2013 8:[address] [facility] HISTORICAL RESULTS Potassium 3.6 3.3 - 5.1 mmol/L 03/31/2013 8:[address] [facility] HISTORICAL RESULTS Chloride 101 96 - 108 mmol/L 03/31/2013 8:[address] [facility] HISTORICAL RESULTS Carbon Dioxide 26 22 - 32 mmol/L 03/31/2013 8:[address] [facility] HISTORICAL RESULTS Anion Gap 10 03/31/2013 8:[address] [facility] HISTORICAL RESULTS Glucose 98 70 - 110 mg/dL 03/31/2013 8:[address] [facility] HISTORICAL RESULTS BUN 13 6 - 20 mg/dL 03/31/2013 8:[address] [facility] HISTORICAL RESULTS Creatinine 0.8 0.5 - 1.1 mg/dL 03/31/2013 8:[address] [facility] HISTORICAL RESULTS Kidney Disease Stage 86 mL/MIN Comment: NOTE; ??The GFR is an estimated value using the creatinine, sex, age, and race of the patient. THE ESTIMATED GFR IS VALIDATED FOR AGES 18-70 YEARS STAGE ?mL/Min ?DESCRIPTION ??1 ?90 mL/min or more ?Normal or elevated GFR ??2 ? 60-89 mL/min ?Mildly decreased GFR ??3 ? 30-59 mL/min ?Moderately decreased GFR ??4 ? 15-29 mL/min ?Severely decreased GFR ??5 ? <15 mL/min ? Kidney failure or on dialysis @ Calcium 2.39 2.15 - 2.55 mmol/L Total Protein 7.2 6.4 - 8.4 g/dL Albumin 4.4 3.5 - 5.2 g/dL Globulin 2.8 2.3 - 3.5 gm/dL Albumin/Globulin Ratio 1.6 1.1 - 1.8 Total Bilirubin 0.4 0.0 - 1.2 mg/dL AST 25 0 - 32 U/L ALT 35(H) 0 - 31 U/L Alkaline Phosphatase 70 35 - 104 U/L 03/31/2013 8:26 AM CDT 03/31/2013 8:27 AM T us Historical Provider LAB BLOOD ORDERABLES Alida l Result [facility] HISTORICAL RESULTS * Cyclic citrul peptide antibody, IgG (03/31/2013 8:26 AM CDT) Cycl Citrul Peptide IgG 4 0 - 19 Units Comment: INTERPRETIVE INFORMATION: Cyclic Citrullinated Peptide ?? Antibody, IgG ?19 Units or less ................... Negative ?20-39 Units ........................ Weak Positive ?40-59 Units ........................ Moderate Positive ?60 Units or greater ................ Strong Positive ?? Anti-cyclic citrullinated peptide (anti-CCP), IgG ?? antibodies are present in about 69-83 percent of patients ?? with rheumatoid arthritis (RA) and have specificities of ?? 93-95 percent. These autoantibodies may be present in the ?? preclinical phase of disease, are associated with future RA ?? development, and may predict radiographic joint ?? destruction. Patients with weak positive results should be ?? monitored and testing repeated. ?? Performed by [employer], ?? [address], [facility] [place] [place] [address] ?? [email or web address], Tejal Groves MD, Lab. Director ?? 03/31/2013 8:26 AM CDT 03/31/2013 8:27 AM CDT us Historical Provider LAB BLOOD ORDERABLES Alida hollis Result [facility] HISTORICAL RESULTS * (ABNORMAL) CBC with auto differential (03/31/2013 8:26 AM CDT) WBC 5.7 4.6 - 10.2 x10 3/ul 03/31/2013 8:36 AM CDT [facility] [employer] HISTORICAL RESULTS RBC 3.62(L) 3.76 - 4.80 x10 6/ul 03/31/2013 8:36 AM CDT [facility] [employer] HISTORICAL RESULTS Hemoglobin 11.0 11.0 - 15.0 g/dl 03/31/2013 8:36 AM CDT [facility] [employer] HISTORICAL RESULTS Hct 32.2(L) 33.0 - 43.0 % 03/31/2013 8:36 AM CDT [facility] [employer] HISTORICAL RESULTS MCV 89.0 80.0 - 97.0 fl 03/31/2013 8:[address] [facility] HISTORICAL RESULTS MCH 30.4 27.0 - 31.2 pg 03/31/2013 8:36 AM CDT [facility] [employer] HISTORICAL RESULTS MCHC 34.2 31.8 - 35.4 g/dl RDW 13.1 11.6 - 14.8 % Plt Count 215 124 - 400 x10 3/ul MPV 8.4 7.4 - 10.4 fl Differential Method AUTOMATED DIFF --------- -- Neut % 61.9 37.0 - 85.0 % Immature Gran % 0.2 0.0 - 3.0 % Lymph % 29.5 5.0 - 45.0 % [facility] % 6.3 3.0 - 15.0 % Eos % 1.9 0.0 - 7.0 % Baso % 0.2 0.0 - 2.0 % ABSOLUTE COUNTS ABSOLUTE COUNTS --------- -- Absolute Neuts (auto) 3.5 1.7 - 8.7 x10 3/ul 03/31/2013 8:36 AM [facility] Immature Gran # 0.0 0.0 - 0.3 x10 3/ul Absolute Lymphs (auto) 1.7 0.2 - 4.6 x10 3/ul 03/31/2013 8:36 AM [facility] Absolute Monos (auto) 0.4 0.1 - 1.5 x10 3/ul 03/31/2013 8:[address] [facility] HISTORICAL RESULTS Absolute Eos (auto) 0.1 0.0 - 0.7 x10 3/ul 03/31/2013 8:[address] [facility] HISTORICAL RESULTS Absolute Basos (auto) 0.0 0.0 - 0.2 x10 3/ul 03/31/2013 8:[address] [facility] HISTORICAL RESULTS 03/31/2013 8:26 AM CDT 03/31/2013 8:27 AM CDT Historical Provider MD LAB BLOOD ORDERABLES Alida l Result Performing Organization Address [facility] [[email or web address]] Co de Phone Number [facility] HISTORICAL RESULTS * C4 complement (03/31/2013 8:26 AM CDT) Complement C4 18 10 - 40 mg/dL 04/01/2013 3:[address] [facility] HISTORICAL RESULTS Comment: REFERENCE INTERVAL: Complement Component 4 ?? Access complete set of age- and/or gender-specific ?? reference intervals for this test in the [facility] ?? Test Directory (PANOSOL). ?? Performed by [employer], ?? [address] [facility] [place] [facility] [place] [address] ?? [email or web address], Tejal Groves MD, Lab. Director ?? 03/31/2013 8:26 AM CDT 03/31/2013 8:27 AM CDT Historical Provider LAB BLOOD ORDERABLES Alida l Result Performing Organization Address [facility] de Phone Number [facility] HISTORICAL RESULTS * C3 complement (03/31/2013 8:26 AM CDT) Complement C3 101 88 - 201 mg/dL 04/01/2013 3:[address] [facility] HISTORICAL RESULTS Comment: REFERENCE INTERVAL: Complement Component 3 ?? Access complete set of age- and/or gender-specific ?? reference intervals for this test in the [facility] ?? Test Directory (PANOSOL). ?? Performed by [employer], ?? [address] [place] [address] ?? [email or web address], Tejal Groves MD, Lab. Director ?? 03/31/2013 8:26 AM CDT 03/31/2013 8:27 AM CDT Historical Provider LAB BLOOD ORDERABLES Alida l Result [facility] HISTORICAL RESULTS * MICH BY IFA,IGG (03/31/2013 8:26 AM CDT) MICH BY IFA,IGG 1:40 <1:40 04/01/2013 5:[address] [facility] HISTORICAL RESULTS Comment: Homogeneous pattern. ?? INTERPRETIVE INFORMATION: MICH by IFA, IgG ?? Anti-nuclear antibodies (MICH) are seen in a variety of ?? systemic rheumatic diseases and are determined by indirect ?? fluorescence assay (IFA) using HEp-2 substrate with an ?? IgG-specific conjugate. MICH titers less than or equal to ?? 1:80 have variable relevance while titers greater than or ?? equal to 1:160 are considered clinically significant. These ?? antibodies may precede clinical disease onset; however, ?? healthy individuals and those with advanced age have been ?? reported to be positive for MICH. When observed, one of the ?? five basic patterns is reported: homogeneous, ?? peripheral/rim, speckled, centromere, or nucleolar. If ?? cytoplasmic fluorescence is observed, it is noted. IFA ?? methodology is subjective and has occasionally been shown ?? to lack sensitivity for anti-SSA/Ro antibodies. ?? Performed by [employer], ?? [address] [place] [address] ?? [email or web address], Tejal Groves MD, Lab. Director ?? 03/31/2013 8:26 AM CDT 03/31/2013 8:27 AM CDT Historical Provider LAB BLOOD ORDERABLES Alida hollis Result [facility] HISTORICAL RESULTS documented in this encounter Visit Diagnoses Diagnosis Pain in joint, multiple sites documented in this encounter
--- OUTSIDE RECORDS SUMMARY | 2024-11-06 10:41 | XMS_ITS | Encounter Summary ---
Author Organization [facility] Healthcare Address [address] [place] [address] Care Team Providers Care Visitor Services Technician Name Role Phone Unavailable Primary Care Provider Unavailabl e Encounter Details Date Type Department Care Team (Latest Contact Info) Description 02/20/2018 7:42 AM CDT Hospital Encounter [facility] Xavier Nunez MD [address] [place] [id number] Encounter for gynecological examination without abnormal finding; Encounter for screening for malignant neoplasm of cervix Social History Tobacco Use Types Packs/Day Years [...] Procedure Name Priority Date/Time Associated Diagnosis Comments THIN PREP REFLEX HPV SCREEN Routine 02/20/2018 2:56 PM CDT documented in this encounter Results * THIN PREP REFLEX HPV SCREEN (02/20/2018 2:56 PM CDT) Thin Prep Pap w HPV SEE NOTES 02/27/2018 3:[address] [facility] HISTORICAL RESULTS Comment: [facility] ?? Department of Pathology ?? [address] [place] [address] ? Final Report with Addendum ?Patient Name: NILAM RITTER. Address: [address] [place] [address] ?Service: Laboratory Location: Lab ?Taken: 02/20/2018 Gender: F Received 02/23/2018 ?: 1975 (Age: 42) Hospital #: [id number] ?Accessioned: 02/23/2018 ?? Patient Type: CH Ref Lab Reported 02/27/2018 ?Physician(s): Dr. Xavier Nunez M.D. [facility] ? . ?? Diagnosis: ?? Source of Specimen: SCREENING IMAGED PAP w/ HPV ?? . ?? Specimen Adequacy: ?- Satisfactory for evaluation; endocervical/transformation zone ?component present ?? . ?? General Category: ?- Negative for intraepithelial lesion or malignancy ?? . ?? GAGAN Frederick(ASCP) Kaleigh Lopez M.D. ?? Report Electronically Reviewed and Signed Out By ??Kaleigh Lopez M.D. ?? 02/27/2018 13:21:53 Addenda: ? HPV and Genotypes 16 18/45 Interpretation ?? HPV Results: ?? . ?? POSITIVE for one or more of types 16, 18, 31, 33, 35, 39, 45, 51, 52, 56, 58, 59, 66 and 68. ?? These high/intermediate risk HPV types are associated with dysplasia and ?? some cervical cancers. ?? . ?? Genotyping Results: ?? . ?? Negative for HPV 16 ?? Negative for HPV 18/45 ?? . ?? Tests performed utilizing Gen-Probe Aptima assay. ?? . ? GAGAN Cobian(ASCP) ??Report Electronically Reviewed and Signed ?? Out By ??GAGAN Cobian(ASCP) ??02/26/2018 15:38:08 ?? . ?? Specimen(s) Received: ?? A: SCREENING IMAGED PAP w/ HPV ?? . ?? Clinical History: ?? Last Menstrual Period: Mirena ?? Contraceptive History: ?? IUD ?? . ?? The Pap test is a screening test used to aid in the detection of cervical ?? cancer and its precursors. ??It should not be the sole means by which ?? malignant and premalignant lesions are diagnosed. ??Both false negative and ?? false positive results may occur. ??It also has poor sensitivity for the detection of endometrial lesions and should not be used to evaluate suspected endometrial abnormalities. ??For these reasons it is most important to obtain Pap tests at regular intervals. ?? . ?? The performance characteristics of some immunohistochemical stains, ?? fluorescence in-situ hybridization tests and immunophenotyping by flow ?? cytometry cited in this report (if any) were determined by the Surgical ?? Pathology Department at [facility] as part of an ongoing quality control program and in compliance with federally mandated regulations drawn from the Clinical Laboratory Improvement Act of 1988 (CLIA '88). ??Some of these tests rely on the use of analyte specific reagents and are ?? subject to specific labeling requirements by the US Food and Drug ?? Administration. ??Such diagnostic tests may only be performed in a facility ?? that is certified by the Department of Health and Human Services as a high ?? complexity laboratory under CLIA '88. The FDA has determined that such clearance or approval is not necessary. This test is used for clinical purposes. ??It should not be regarded as investigational or for research. ??Nevertheless, federal rules concerning the medical use of analyte specific ?? reagents require that the following disclaimer be attached to the report: ?? This test was developed and its performance characteristics determined by ?? the Surgical Pathology Department [facility]. ??It has not been ?? cleared or approved by the U. S. Food and Drug Administration. ?? 02/20/2018 2:56 PM CDT 02/21/2018 2:13 PM CDT us Xavier Nunez MD LAB PATHOLOGY ORDERABLES F inal Result [facility] HISTORICAL RESULTS documented in this encounter Visit Diagnoses Diagnosis Encounter for gynecological examination without abnormal finding Encounter for screening for malignant neoplasm of cervix documented in this encounter
--- OUTSIDE RECORDS SUMMARY | 2024-11-06 10:41 | XMS_ITS | Encounter Summary ---
Author Organization [facility] Healthcare Address [address] [place] [address] Care Team Providers Care Bleach Boiler Filler Name Role Phone Unavailable Primary Care Provider Unavailabl e Encounter Details Date Type Department Care Team (Latest Contact Info) Description 11/01/2013 10:26 AM TANK TRUCK LOADER Hospital Encounter [facility] OP Gregg Win, DO [address] [place] [id number] Anxiety state; Other depressive disorder; Screening for lipoid disorders Social History Tobacco Use Types Packs/Day Years [...] Procedure Name Priority Date/Time Associated Diagnosis Comments CBC WITH AUTO DIFFERENTIAL Routine 11/01/2013 10:35 AM TANK TRUCK LOADER TSH Routine 11/01/2013 10:35 AM TANK TRUCK LOADER LIPID PANEL Routine 11/01/2013 10:35 AM TANK TRUCK LOADER COMPREHENSIVE METABOLIC PANEL Routine 11/01/2013 10:35 AM TANK TRUCK LOADER documented in this encounter Results * (ABNORMAL) CBC with auto differential (11/01/2013 10:35 AM TANK TRUCK LOADER) WBC 3.6(L) 4.6 - 10.2 x10 3/ul 11/01/2013 11:21 AM TANK TRUCK LOADER [facility] HISTORICAL RESULTS RBC 4.20 3.76 - 4.80 x10 6/ul 11/01/2013 11:21 AM TANK TRUCK LOADER [facility] [employer] HISTORICAL RESULTS Hemoglobin 13.0 11.0 - 15.0 g/dl 11/01/2013 11:21 AM [facility] [employer] HISTORICAL RESULTS Hct 38.5 33.0 - 43.0 % 11/01/2013 11:21 AM [facility] [employer] HISTORICAL RESULTS MCV 91.7 80.0 - 97.0 fl 11/01/2013 11:21 AM TANK TRUCK LOADER [facility] [employer] HISTORICAL RESULTS MCH 31.0 27.0 - 31.2 pg 11/01/2013 11:21 AM TANK TRUCK LOADER [facility] [employer] HISTORICAL RESULTS MCHC 33.8 31.8 - 35.4 g/dl 11/01/2013 11:21 AM [place] [facility] [employer] HISTORICAL RESULTS RDW 13.1 11.6 - 14.8 % 11/01/2013 11:21 AM TANK TRUCK LOADER [facility] [employer] HISTORICAL RESULTS Plt Count 246 124 - 400 x10 3/ul 11/01/2013 11:21 AM [place] [facility] [employer] HISTORICAL RESULTS MPV 9.1 7.4 - 10.4 fl 11/01/2013 11:21 AM [place] [facility] [employer] HISTORICAL RESULTS Differential Method AUTOMATED DIFF --------- -- 11/01/2013 11:21 AM [facility] HISTORICAL RESULTS Neut % 46.6 37.0 - 85.0 % 11/01/2013 11:21 AM [facility] HISTORICAL RESULTS Immature Gran % 0.0 0.0 - 3.0 % 11/01/2013 11:21 AM [facility] HISTORICAL RESULTS Lymph % 38.5 5.0 - 45.0 % 11/01/2013 11:21 AM TANK TRUCK LOADER [facility] [employer] HISTORICAL RESULTS Boone % 10.5 3.0 - 15.0 % 11/01/2013 11:21 AM [facility] HISTORICAL RESULTS Eos % 3.6 0.0 - 7.0 % 11/01/2013 11:21 AM TANK TRUCK LOADER [facility] [employer] HISTORICAL RESULTS Baso % 0.8 0.0 - 2.0 % 11/01/2013 11:21 AM [place] [facility] [employer] HISTORICAL RESULTS ABSOLUTE COUNTS ABSOLUTE COUNTS --------- -- 11/01/2013 11:21 AM [facility] HISTORICAL RESULTS Absolute Neuts (auto) 1.7 1.7 - 8.7 x10 3/ul Immature Gran # 0.0 0.0 - 0.3 x10 3/ul Absolute Lymphs (auto) 1.4 0.2 - 4.6 x10 3/ul 11/01/2013 11:21 AM [facility] RES[facility] Absolute Monos (auto) 0.4 0.1 - 1.5 x10 3/ul Absolute Eos (auto) 0.1 0.0 - 0.7 x10 3/ul Absolute Basos (auto) 0.0 0.0 - 0.2 x10 3/ul 11/01/2013 10:3 5 AM TANK TRUCK LOADER 11/01/2013 10:57 AM [facility] HISTORICAL RESULTS - 11/01/2013 11:21 AM TANK TRUCK LOADER FASTING 12 HOURS Gregg Win DO LAB BLOOD ORDERABLES Fin al Result [facility] HISTORICAL RESULTS * TSH (11/01/2013 10:35 AM TANK TRUCK LOADER) Pathologist [facility] TSH 1.47 0.27 - 4.20 uIU/mL 11/01/2013 10:3 5 AM TANK TRUCK LOADER 11/01/2013 10:56 AM TANK TRUCK LOADER Narrative [facility] HISTORICAL RESULTS - 11/01/2013 12:18 PM TANK TRUCK LOADER FASTING 12 HOURS Gregg Win DO LAB BLOOD ORDERABLES Fin al Result [facility] HISTORICAL RESULTS * Lipid panel (11/01/2013 10:35 AM TANK TRUCK LOADER) Triglycerides 66 0 - 199 mg/dL Comment:12 hr pc highly felicia mmended for Triglyceride Cholesterol 152 0 - 199 mg/dL 11/01/2013 12:26 PM TANK TRUCK LOADER [facility] HISTORICAL RESULTS Comment: Borderline: ??200-239 High Risk: ?? >239 HDL Cholesterol 46 40 - 60 mg/dL Comment: Major Risk ?< 40 mg/dL Moderate Risk ?40-60 mg/dL Negative Risk ?? > 60 mg/dL LDL Cholesterol, Calc 93 0 - 130 mg/dL Comment:High Risk > 159 mg/d L Cholesterol/HDL Ratio 3.3 Comment: Cholesterol / HDL Ratio 3.5:1 or less is desirable. Cholesterol / HDL Ratio greater than 5:1 is considered higher risk for developing heart disease. 11/01/2013 10:3 5 AM TANK TRUCK LOADER 11/01/2013 10:56 AM TANK TRUCK LOADER Narrative [facility] HISTORICAL RESULTS - 11/01/2013 12:26 PM TANK TRUCK LOADER FASTING 12 HOURS us Gregg Win DO LAB BLOOD ORDERABLES Fin al Result [facility] HISTORICAL RESULTS * Comprehensive metabolic panel (11/01/2013 10:35 AM TANK TRUCK LOADER) Sodium 135 135 - 145 mmol/L Potassium 3.8 3.3 - 5.1 mmol/L Chloride 103 96 - 108 mmol/L Carbon Dioxide 24 22 - 32 mmol/L Anion Gap 8 Glucose 89 70 - 110 mg/dL BUN 7 6 - 20 mg/dL Creatinine 0.6 0.5 - 1.1 mg/dL Kidney Disease Stage > 90 mL/MIN Comment: NOTE; ??The GFR is an [...] Kidney failure or on dialysis @ Calcium 8.7 8.6 - 10.2 mg/dL Comment: Reporting units changed on 09-02-2013 from mmol/L to mg/dL. Compare to previous results with caution. Total Protein 6.6 6.4 - 8.4 g/dL Albumin 4.0 3.5 - 5.2 g/dL Globulin 2.6 2.3 - 3.5 gm/dL Albumin/Globulin Ratio 1.5 1.1 - 1.8 Total Bilirubin 0.7 0.0 - 1.2 mg/dL 11/01/2013 12:26 PM TANK TRUCK LOADER [facility] HISTORICAL RESULTS AST 14 0 - 32 U/L 11/01/2013 12:26 PM TANK TRUCK LOADER [facility] HISTORICAL RESULTS ALT 11 0 - 31 U/L 11/01/2013 12:27 PM TANK TRUCK LOADER [facility] HISTORICAL RESULTS Alkaline Phosphatase 48 35 - 104 U/L 11/01/2013 10:3 5 AM TANK TRUCK LOADER 11/01/2013 10:56 AM TANK TRUCK LOADER Narrative [facility] HISTORICAL RESULTS - 11/01/2013 12:26 PM TANK TRUCK LOADER FASTING 12 HOURS Gregg Win DO LAB BLOOD ORDERABLES Fin al Result [facility] HISTORICAL RESULTS documented in this encounter Visit Diagnoses Diagnosis Anxiety state Anxiety state, unspecified Other depressive disorder Screening for lipoid disorders documented in this encounter
--- OUTSIDE RECORDS SUMMARY | 2024-11-06 10:41 | XMS_ITS | Encounter Summary ---
Author Organization [facility] Medical Group Address [address] [facility] [address] [place] [id number] Care Team Providers Care Assembler Fishing Floats Name Role Phone Vishal Perez MD Primary Care Provider [phone] Reason for Referral * Procedure (Routine) - Closed Specialty Diagnoses / Procedures Referred By Contac t Referred To Contact Diagnoses ASCUS with positive high risk HPV cervical Procedures Colposcopy Xavier Nunez MD Phone: tel: fax: [facility] Medical [facility] Referral ID Status Reason Start Date Expiration Date Visits Re quested Visits Authorized [id number] Closed 05/05/2019 11/13/2020 1 1 Reason for Visit * Reason Comments Colposcopy Encounter Details Date Type Department Care Team (Latest Contact Info) Description 05/05/2019 11:15 AM CDT Procedure visit [facility] Obstetrical Gynecology [address] [place] [phone] Xavier Nunez MD [address] [place] [id number] ASCUS with positive high risk HPV cervical (Primary Dx) Social History Tobacco Use Types Packs/Day Years [...] on file documented as of this encounter Patient Instructions * Patient Instructions* Xavier Nunez MD - 05/05/2019 11:15 AM CDT Patient Education HPV (Human Papillomavirus) WHAT YOU NEED TO KNOW: What is human papillomavirus (HPV)? HPV is the most common infection spread by sexual contact. It can also be spread from a mother to her baby during delivery. HPV may cause oral and genital warts ortumors in your nose, mouth, throat, and lungs. HPV may also cause vaginal, penile, and anal cancers. You may not show symptoms of any of these conditions for several years after being exposed to HPV. What are the symptoms of HPV? ?? Painless warts ?? Genital or anal discharge, bleeding, itching, or pain ?? Pain when you urinate How is HPV diagnosed and treated? Your healthcare provider may use a vinegar liquid to help diagnose HPV genital warts. He or she may take tissue samples to test for HPV infection. There is no cure for HPV. There is treatment for the conditions that are caused by HPV. You will need to be closely monitored for these conditions. Ask your healthcare provider for more information about monitoring, conditions caused by HPV, and treatments. How can HPV infection be prevented? Vaccinations can help stop the spread of HPV. The vaccine is most effective if given before sexual activity begins. This allows your body to build almost complete protection against HPV before having contact with the virus. The HPV vaccine is still effective up to the age of 26 if it is given after sexual activity has already begun. Who should get the HPV vaccine? The first dose of the vaccine may be given as early as 9 years of age. The following should also get the vaccine: ?? All females and males 11 to 12 years of age ?? Females 13 through 26 years of age, and males 13 through 21 years of age, who have not been vaccinated ?? Men up to 26 years of age who have sex with other men, and have not been vaccinated ?? Anyone with a weak immune system, including infection with HIV, up to 26 years of age Who should not get the vaccine or should wait to get it? Do not get a second dose if you had a severe allergic reaction to the first dose. Do not get the vaccine if you are . If you are sick,wait to get the vaccine until symptoms go away. How is the vaccine given? The HPV vaccine can be given with other vaccinations. The vaccine is given in 3 doses to adults: ?? The first dose is given at any time. ?? The second dose is given 1 to 2 months after the first dose. ?? The third dose is given 6 months after the first dose. What else do I need to know about how the vaccine is given? You may need 1 more dose of the HPV vaccine if any of the following is true: ?? You only received 1 dose of the HPV vaccine before 15 years of age ?? You received 2 doses of the HPV vaccine less than 5 months apart before 15 years of age When should I contact my healthcare provider? ?? You have warts in your genital or anal area. ?? You have genital or anal discharge, bleeding, itching, or pain. ?? You have pain when you urinate. ?? You have questions or concerns about your condition or care. CARE AGREEMENT: You have the right to help plan your care. Learn about your health condition and how it may be treated. Discuss treatment options with your caregivers to decide what care you want to receive. You always have the right to refuse treatment. The above information is an educational psychologist only. It is not intended as medical advice for individual conditions or treatments. Talk to your doctor, nurse or pharmacist before following any medical regimen to see if it is safe and effective for you. ?? 2017 [employer] Information is for End User's use only and may not be sold, redistributed or otherwise used for commercial purposes. All illustrations and images included in CareNotes?? are the copyrighted property of [employer] Inc[employer] or [employer]. documented in this encounter Procedure Notes * Xavier Nunez MD - 05/05/2019 11:15 AM CDTAssociated Order(s): Colposcopy Post-Procedure Diagnose(s): ASCUS with positive high risk HPV cervical Images from the original note were not included. Colposcopy Date/Time: 05/05/2019 12:12 PM Performed by: Xavier Nunez MD Authorized by: Xavier Nunez MD Consent given by: patient Written consent obtained: written consent obtained Pre-procedure: Prepped with: acetic acid Indication: Indication: ASC-US and HPV Procedure: Procedure: Colposcopy w/ biopsy of cervix Treece speculum was placed in the vagina: yes Under colposcopic examination the transition zone was seen in entirety: yes Cervical biopsy performed with a cervical biopsy punch: yes no Post-procedure: Impression: Low grade cervical dysplasia Patient tolerance of procedure: Patient tolerated the procedure well with no immediate complications Biopsy: 11 o'clock, acetowhite, punctation, vessels documented in this encounter Plan of Treatment Not on file documented as of this encounter Procedures Procedure Name Priority Date/Time Associated Diagnosis Comments MI COLPOSCOPY CERVIX UPPR/ADJCNT VAGINA W/CERVIX BX Routine 05/05/2019 11:15 AM CDT ASCUS with positive high risk HPV cervical SURGICAL PATHOLOGY Routine 05/05/2019 12 :00 AM CDT ASCUS with positive high risk HPV cervical documented in this encounter Results * MI COLPOSCOPY CERVIX UPPR/ADJCNT VAGINA W/CERVIX BX (05/05/2019 11:15 AM CDT) Xavier Tripp MD - 05/05/2019 11:15 AM CDT Xavier Nunez MD ? 05/05/2019 ??1:31 PM Colposcopy Date/Time: 05/05/2019 12:12 PM Performed by: Xavier Nunez MD Authorized by: Xavier Nunez MD Consent given by: patient Written consent obtained: written consent obtained Pre-procedure: ??Prepped with: acetic acid ?? Indication: ??Indication: ??ASC-US and HPV Procedure: ??Procedure: Colposcopy w/ biopsy of cervix ?Treece speculum was placed in the vagina: yes ?Under colposcopic examination the transition zone was seen in entirety: yes ?Cervical biopsy performed with a cervical biopsy punch: yes ??no Post-procedure: ??Impression: Low grade cervical dysplasia ?Patient tolerance of procedure: ??Patient tolerated the procedure well with no immediate complications Xavier Nunez MD IN CLINIC/BEDSIDE ORDERABL ES Final Result * Surgical pathology (05/05/2019 12:00 AM CDT) Tissue 05/05/2019 05/06/2019 11: 13 AM CDT [facility] 05/07/2019 8:20 PM CDT [facility] Department of Pathology [address] [place] [address] ?? Final Report Patient Name: NILAM RITTER : ??1975 (Age: 43) Gender: ??F Address: ??[address] [place] [address] ??[address] [facility] #: [id number] Service: DEFAULT Location: Laboratory Drop Offs Patient Type: Referring ? Taken: 05/05/2019 Received: 05/06/2019 Accessioned: 05/06/2019 Reported: 05/07/2019 Physician(s): Dr. Xavier Nunez M.D. Diagnosis: A) Cervix, 11 o'clock, biopsy - Benign squamous mucosa - No evidence of dysplasia or malignancy Bienvenido Singh DO Report Electronically Reviewed and Signed Out By ??Bienvenido Singh DO 05/07/2019 20:20:34 Specimen(s) Received: A: 11 o'clock cervical biopsy Microscopic Description: Microscopic examination substantiates the above cited diagnosis. Clinical History: ASCUS with positive high risk HPV cervical (R87.610, R87.810) 11 o'clock cervical biopsy Gross Description The specimen container is labeled with the patient's name and 11 o'clock cervical . ??Received in formalin is a single fragment of soft white tissue which measures 3 mm in greatest dimension. ??This tissue is submitted entirely in cassette A1. aga/05/06/2019 14:06 ??RICHELLE Alejandro Xavier Nunez MD LAB PATHOLOGY ORDERABLES F inal Result Performing Organization Address City/State/[facility] Co de Phone Number [address] [phone] documented in this encounter Visit Diagnoses Diagnosis ASCUS with positive high risk HPV cervical- Primary documented in this encounter Care Teams Assembler Fishing Floats Relationship Specialty Start Date End Date Vishal Perez MD PCP - General Family Medicine 02/10/19 documented as of this encounter
--- OUTSIDE RECORDS SUMMARY | 2024-11-06 10:41 | XMS_ITS | Encounter Summary ---
Author Organization [facility] Healthcare Address [address] [place] [address] Care Team Providers Care Electrical Equipment Assembler Name Role Phone Unavailable Primary Care Provider Unavailabl e Encounter Details Date Type Department Care Team (Latest Contact Info) Description 11/30/2014 1:19 PM PROCESS CONTROL ENGINEER Hospital Encounter [facility] OP Yesica Pardo, PA [address] [place], [place] [id number] Raynaud's syndrome; Pain in joint, multiple sites Social History [...] Name Priority Date/Time Associated Diagnosis Comments MICH REFLEX TO QUANTITATIVE Routine 11/30/2014 1:30 PM PROCESS CONTROL ENGINEER VITAMIN D 25 HYDROXY Routine 11/30/2014 1:30 PM PROCESS CONTROL ENGINEER RHEUMATOID FACTOR Routine 11/30/2014 1:3 0 PM PROCESS CONTROL ENGINEER documented in this encounter Results * MICH reflex to quantitative (11/30/2014 1:30 PM PROCESS CONTROL ENGINEER) MICH Screen None Detected None Detected 12/03/2014 12:49 AM PROCESS CONTROL ENGINEER [facility] HISTORICAL RESULTS Comment: No antibodies to Anti-Nuclear Antibodies (MICH) detected. No ?? further testing will be performed. ?? INTERPRETIVE INFORMATION: Anti-Nuclear Antibodies (MICH), ?? IgG by IRENE ?? MICH specimens are screened using enzyme-linked ?? immunosorbent assay (IRENE) methodology. All IRENE results ?? reported as Detected are further tested by indirect ?? fluorescent assay (IFA) using HEp-2 substrate with an ?? IgG-specific conjugate. The MICH IRENE screen is designed to ?? detect antibodies against dsDNA, histone, SS-A (Ro), SS-B ?? (La), Chu, snRNP/Sm, Scl-70, Jenny-1, centromere, and an ?? extract of lysed HEp-2 cells. MICH IRENE assays have been ?? reported to have lower sensitivities for antibodies ?? associated with nucleolar and speckled MICH-IFA patterns. ?? Performed by [employer], ?? [address] [facility] [place] [address] ?? [email or web address], Donavon Reyes MD, Lab. Director ?? 11/30/2014 1:30 PM PROCESS CONTROL ENGINEER 11/30/2014 1:36 PM PROCESS CONTROL ENGINEER us Yesica [employer] LAB BLOOD ORDERABLES Final Result [facility] HISTORICAL RESULTS * (ABNORMAL) Vitamin D 25 hydroxy (11/30/2014 1:30 PM PROCESS CONTROL ENGINEER) 25-OH Vitamin D Total 29(L) 30 - 100 ng/mL 11/30/2014 6:39 PM PROCESS CONTROL ENGINEER [facility] HISTORICAL RESULTS Comment: ??Use caution when comparing results from different ? methodologies and/or manufacturers. ? METHOD: [employer] Chemiluminescent technology TEST INFORMATION: Vitamin D, 25 Hydroxy This assay accurately quantifies the sum of vitamin D3, 25-hydroxy and vitamin D2, 25-hydroxy. REFERENCE RANGES: ?Deficiency: ? < 20 ng/mL ?Insufficiency: ? 20-29 ng/mL ?Optimum level: ?30-100 ng/mL ?Possible toxicity: ?>100 ng/mL No pediatric reference range established. 11/30/2014 1:30 PM PROCESS CONTROL ENGINEER 11/30/2014 1:36 PM PROCESS CONTROL ENGINEER Yesica [employer] LAB BLOOD ORDERABLES Final Result Performing Organization Address [facility] de Phone Number [facility] [employer] HISTORICAL RESULTS * Rheumatoid factor (11/30/2014 1:30 PM PROCESS CONTROL ENGINEER) Rheumatoid Factor < 10.0 0.0 - 13.9 IU/mL 11/30/2014 5:52 PM PROCESS CONTROL ENGINEER [facility] [employer] HISTORICAL RESULTS 11/30/2014 1:30 PM PROCESS CONTROL ENGINEER 11/30/2014 1:36 PM PROCESS CONTROL ENGINEER Yesica [employer] LAB BLOOD ORDERABLES Final Result Performing Organization Address [facility] de Phone Number [facility] [employer] [facility] [employer] HISTORICAL RESULTS documented in this encounter Visit Diagnoses Diagnosis Raynaud's syndrome Pain in joint, multiple sites documented in this encounter
--- OUTSIDE RECORDS SUMMARY | 2024-11-06 10:41 | XMS_ITS | Encounter Summary ---
Author Organization [facility] Healthcare Address [address] [place] [address] Care Team Providers Care Press Room Supervisor Name Role Phone Unavailable Primary Care Provider Unavailabl e Encounter Details Date Type Department Care Team (Latest Contact Info) Description 12/14/2012 9:04 AM CLOTH MERCERIZING SUPERVISOR Hospital Encounter [facility] OP Gregg Win Quiles, DO [address] [place], [place] [address] Pure hypercholesterolemia Social History Tobacco Use Types Packs/Day Years [...] Procedure Name Priority Date/Time Associated Diagnosis Comments LIPID PANEL Routine 12/14/2012 9:21 AM CLOTH MERCERIZING SUPERVISOR COMPREHENSIVE METABOLIC PANEL Routine 12/14/2012 9:21 AM CLOTH MERCERIZING SUPERVISOR documented in this encounter Results * Lipid panel (12/14/2012 9:21 AM CLOTH MERCERIZING SUPERVISOR) Triglycerides 68 0 - 199 mg/dL 12/14/2012 10:24 AM [facility] [employer] HISTORICAL RESULTS Comment:12 hr pc highly felicia mmended for Triglyceride Cholesterol 157 0 - 199 mg/dL 12/14/2012 10:24 AM [facility] [employer] HISTORICAL RESULTS Comment: Borderline: ??200-239 High Risk: ?? >239 HDL Cholesterol 45 40 - 60 mg/dL Comment: Major Risk ?< 40 mg/dL Moderate Risk ?40-60 mg/dL Negative Risk ?? > 60 mg/dL LDL Cholesterol, Calc 98 0 - 130 mg/dL 12/14/2012 10:[address] [facility] HISTORICAL RESULTS Comment:High Risk > 159 mg/d L 12/14/2012 9:21 AM [facility] 12/14/2012 9:50 AM [facility] Narrative [facility] HISTORICAL RESULTS - 12/14/2012 10:24 AM [facility] PATIENT HAS FASTED 12 HOURS. us Gregg Win DO LAB BLOOD ORDERABLES Fin al Result [facility] HISTORICAL RESULTS * (ABNORMAL) Comprehensive metabolic panel (12/14/2012 9:21 AM [facility]) Sodium 140 135 - 145 mmol/L Potassium 4.5 3.3 - 5.1 mmol/L Chloride 108 96 - 108 mmol/L Carbon Dioxide 26 22 - 32 mmol/L Anion Gap 6 Glucose 96 70 - 110 mg/dL BUN 13 6 - 20 mg/dL Creatinine 0.6 0.5 [...] Kidney failure or on dialysis @ Calcium 2.23 2.15 - 2.55 mmol/L 12/14/2012 10:24 AM [facility] [employer] HISTORICAL RESULTS Total Protein 6.6 6.4 - 8.4 g/dL 12/14/2012 10:24 AM [facility] [employer] HISTORICAL RESULTS Albumin 4.4 3.5 - 5.2 g/dL 12/14/2012 10:[address] [facility] HISTORICAL RESULTS Globulin 2.2(L) 2.3 - 3.5 gm/dL 12/14/2012 10:24 AM [facility] [place] [facility] Albumin/Globulin Ratio 2.0(H) 1.1 - 1.8 12/14/2012 10:24 AM [facility] [place] [facility] HISTORICAL RESULTS Total Bilirubin 0.6 0.0 - 1.2 mg/dL 12/14/2012 10:24 AM [facility] [employer] HISTORICAL RESULTS AST 13 0 - 32 U/L 12/14/2012 10:24 AM [facility] [employer] HISTORICAL RESULTS ALT 12 0 - 31 U/L 12/14/2012 10:24 AM [facility] [place] [facility] HISTORICAL RESULTS Alkaline Phosphatase 41 35 - 104 U/L 12/14/2012 10:24 AM [facility] [employer] HISTORICAL RESULTS 12/14/2012 9:21 AM [facility] 12/14/2012 9:50 [facility] - 12/14/2012 10:24 AM CLOTH MERCERIZING SUPERVISOR PATIENT HAS FASTED 12 HOURS. us Gregg Win DO LAB BLOOD ORDERABLES Fin al Result [facility] HISTORICAL RESULTS documented in this encounter Visit Diagnoses Diagnosis Pure hypercholesterolemia documented in this encounter
--- OUTSIDE RECORDS SUMMARY | 2024-11-06 10:41 | XMS_ITS | Encounter Summary ---
Author Organization [facility] Address [address] [place] [address] Care Team Providers Care Cloth Printer Helper Name Role Phone Vishal Perez MD Primary Care Provider [phone] Reason for Visit * Reason Onset Date Comments Colpo Result 06/16/2019 Encounter Details Date Type Department Care Team (Late st Contact Info) Description 06/16/2019 Telephone [facility] Medical [facility] Obstetrical Gynecology [address] [place] [address] Dorothy Higgins MA Colpo Result Social History Tobacco Use Types Packs/Day Years [...] on file documented as of this encounter Miscellaneous Notes * Telephone Encounter - Dorothy Higgins MA - 06/16/2019 10:48 AM CDT Patient notified of Colpo Results. Repap one year. HOTSHEET> documented in this encounter Plan of Treatment Not on file documented as of this encounter Visit Diagnoses Not on filedocumented in this encounter Care Teams Cloth Printer Helper Relationship Specialty Start Date End Date Vishal Perez MD PCP - General Family Medicine 02/10/19 documented as of this encounter
--- OUTSIDE RECORDS SUMMARY | 2024-11-06 10:41 | XMS_ITS | Encounter Summary ---
Author Organization [facility] Address [address] [facility] [facility] [address] [place] [address] Care Team Providers Care Associate Professor Of Economics Name Role Phone Vishal Perez MD Primary Care Provider [phone] Reason for Referral * Diagnostic Imaging (Routine) - Closed Specialty Diagnoses / Procedures Referred By Ariadne schaefer Referred To Contact Diagnoses Encounter for gynecological examination Procedures Screening Mammogram Bilateral W Gerson Xavier Nunez MD [address] [place] [address] Phone: tel: fax: [address] [address] Referral ID Status Reason Start Date Expiration Date Visits Re quested Visits Authorized [id number] Closed 06/08/2020 07/08/2021 1 1 * Diagnostic Lab (Routine) - Closed Specialty Diagnoses / Procedures Referred By Ariadne t Referred To Contact Lab Diagnoses Cervical high risk HPV (human papillomavirus) test positive Procedures ThinPrep Imaging Pap and HPV mRNA E6/E7 Reflex HPV 16,18/45 Xavier Nunez MD [facility] [address] Phone: tel: fax: Referral ID Status Reason Start Date Expiration Date Visits Re quested Visits Authorized [id number] Closed 06/08/2020 07/08/2021 1 1 Reason for Visit * Reason Comments [facility] Women Visit Encounter Details Date Type Department Care Team (Latest Contact Info) Description 06/08/2020 3:45 PM CDT Office Visit [facility] Medical [facility] Obstetrical Gynecology [facility] [address] [address] Xavier Nunez MD [facility] [address] [address] Encounter for gynecological examination (Primary Dx); Cervical high risk HPV (human papillomavirus) test positive; Hot flashes Social History Tobacco Use Types Packs/Day Years Used Date Smoking Tobacco: Former Smokeless Tobacco: Never Alcohol Use Standard Drinks/Week Comments Yes 0 (1 standard drink = 0.6 oz pur e alcohol) AUDIT-C Answer Date Recorded Frequency of Alcohol Consumption Monthly or less 06/08/2020 Average Number of Drinks 1 or 2 020 Frequency of Binge Drinking Not on file 05/18 Comments No Sex and Gender Information Value Date Recorded Sex Assigned at Not on file Legal Sex Female 4:25 PM CDT Gender Identity Not on file Sexual Orientation Not on file documented as of this encounter Last Filed Vital Signs Vital Sign Reading Time Taken Comments Blood Pressure 118/80 06/08/2020 4:05 PM CDT Pulse - - Temperature - - Respiratory Rate - - Oxygen Saturation - - Inhaled Oxygen Concentration - - Weight 97.5 kg (215 lb) 06/08/2020 4:05 PM CDT Height 177.8 cm (5' 10 ) 06/08/2020 4:05 PM CDT Body Mass Index 30.85 06/08/2020 4:05 PM CDT documented in this encounter Progress Notes * Xavier Nunez MD - 06/08/2020 3:45 PM CDT Well Woman Exam Lisa Ritter, 1975 CHIEF COMPLAINT Well Women Visit HPI: LMP: No LMP recorded. (Menstrual status: IUD). Menses: none, with IUD control: IUD - Mirena Concerns for exposure to STDs: No Do you feel threatened at home, school, work, or socially: No Does self breast exams: Yes, occasionally Breast complaints: No During the past month: Have you often been bothered by feeling down, depressed, hopeless or anxious? No Have you often been bothered by little interest or pleasure in doing things? No Complains of an increased frequency in hot flashes and sweats over the past few months. Denies fever or chills. Mirena IUD since July 2018. Health Maintenance: Last Pap: 03/2019 ASCUS HPV positive, genotyping neg Last Mammo: 11/2018 Ambrosio. WNL. Colon: never Bone Density: never OB History: Social history: reports that she has quit smoking. She has never used smokeless tobacco. reports current alcohol use. reports no history of drug use. reports being sexually active and has had partner(s) who are Male. She reports using the following method of control/protection: I.U.D.. Past medical history: Past Medical History: Diagnosis Date ??? Abnormal Pap smear of cervix ??? Anxiety ??? Colitis ??? Stomach ulcer Past surgical history: Past Surgical History: Procedure Laterality Date ??? CYST REMOVAL ??? TONSILLECTOMY AND ADENOIDECTOMY Family history: Family History Problem Relation Age of Onset ??? Breast cancer Maternal Grandmother 92 ??? Diabetes Other ??? Hypertension Other ??? Hyperlipidemia Other ??? Breast cancer Other ??? Colon cancer Maternal Grandfather ??? Stroke Maternal Grandfather ??? Multiple sclerosis Maternal Grandfather Allergies: Allergies Allergen Reactions ??? Diphenhydramine Hives Hives Medications: Current Outpatient Medications Medication ??? calcium-vits Y7-S-I2-minerals 166.75 mg- 166.75 unit capsule ??? FLUoxetine (PROzac) 40 mg capsule ??? hydrOXYzine (ATARAX) 50 mg tablet ??? ibuprofen (ADVIL,MOTRIN) 600 mg tablet ??? ketoconazole (NIZORAL) 2 % cream ??? levonorgestrel (MIRENA) IUD ??? LORazepam (ATIVAN) 0.5 mg tablet ??? pantoprazole DR (PROTONIX) 40 mg EC tablet ??? [id number] fum-folic acid-dss (SE- 19, WITH DOCUSATE,) 29 mg iron- 1 mg-25 mg tablet ??? SUMAtriptan (IMITREX) 100 mg tablet ??? vitamin E (vitamin E) 400 unit capsule No current facility-administered medications for this visit. Review of Systems: Review of Systems Constitutional: Negative for activity change, appetite change, fatigue and unexpected weight change. HENT: Negative for sinus pressure and sore throat. Eyes: Negative for visual disturbance. Respiratory: Negative for shortness of breath. Cardiovascular: Negative for chest pain. Gastrointestinal: Negative for abdominal pain, nausea and vomiting. Endocrine: Negative for cold intolerance and polyuria. Genitourinary: Negative for difficulty urinating, dyspareunia, dysuria, hematuria, menstrual problem, pelvic pain, urgency, vaginal bleeding, vaginal discharge and vaginal pain. Musculoskeletal: Negative for back pain. Skin: Negative for color change and rash. Neurological: Negative for dizziness and weakness. Psychiatric/Behavioral: Negative for agitation, sleep disturbance and suicidal ideas. The patient is not nervous/anxious. Breast: Negative for tenderness, breast redness, breast discharge and lump(s). Objective: Blood pressure 118/80, height 177.8 cm (5' 10 ), weight 215 lb (97.5 kg), not currently . Body mass index is 30.85 kg/m??. General Examination: GENERAL APPEARANCE: well developed, well [...] abnormal discharge CERVIX: nontender, without palpable mass, no lesions, IUD string visible. UTERUS: normal size, shape and consistency, normal mobility, nontender. ADNEXA: no masses or tenderness bilaterally. ANUS: not examined. RECTAL: not examined. Assessment/Plan Diagnoses and all orders for this visit: Encounter for gynecological examination (Z01.419) (Primary) - Screening Mammogram Bilateral W Gerson ?? Discussed breast self-awareness Cervical high risk HPV (human papillomavirus) test positive (R87.810) - ThinPrep Imaging Pap and HPV mRNA E6/E7 Reflex HPV 16,18/45; Future Hot flashes (R23.2) - TSH reflex to free T4; Future - CBC with auto differential; Future - Estradiol; Future - Follicle stimulating hormone; Future - Vitamin D 25 hydroxy; Future Xavier Nunez MD 06/08/2020 documented in this encounter Plan of Treatment Scheduled Orders Name Type Priority Associated Diagnoses Orde r Schedule Screening Mammogram Bilateral W Gerson Imaging Schedule Routine, Read Routine (OP Routine) Encounter for gynecological examination Ordered: 06/08/2020 TSH reflex to free T4 Lab Routine Hot flashes Expected: 06/08/2020, Expires: 06/08/2021 CBC with auto differential Lab Routine Hot flashes Expected: 06/08/2020, Expires: 06/08/2021 Estradiol Lab Routine Hot flashes Expected: 06/08/2020, Expires: 06/08/2021 Follicle stimulating hormone Lab Routine Hot flashes Expected: 06/08/2020, Expires: 06/08/2021 Vitamin D 25 hydroxy Lab Routine Hot flashes Expected: 06/08/2020, Expires: 06/08/2021 documented as of this encounter Procedures Procedure Name Priority Date/Time Associated Diagnosis Comments THINPREP IMAGING PAP AND HPV MRNA E6/E7 REFLEX HPV 16,18/45 Routine 06/08/2020 4:46 PM CDT Cervical high risk HPV (human papillomavirus) test positive HPV GENOTYPES 16, 18/45 Routine 06/08/2020 4:46 PM CDT documented in this encounter Results * HPV genotypes 16, 18/45 (06/08/2020 4:46 PM CDT) HPV 16 RNA NOT DETECTED NOT DETECTED [facility] HPV 18/45 RNA NOT DETECTED NOT DETECTED [facility] Comment: This test was performed using the APTIMA HPV 16 18/45 genotype assay ([employer] The assay can differentiate HPV 16 from HPV 18 and/or HPV 45, but does not differentiate between HPV 18 and HPV 45. The analytical performance characteristics of this assay have been determined by [employer]. The modifications have not been cleared or approved by the FDA. This assay has been validated pursuant to the CLIA regulations and is used for clinical purposes. 06/08/2020 4:46 PM CDT 06/09/2020 12:24 PM CDT us Xavier Nunez MD LAB MICROBIOLOGY - GENERAL ORDERABLES Final Result [facility] [address] [address] [facility] [place] [address] * (ABNORMAL) ThinPrep Imaging Pap and HPV mRNA E6/E7 Reflex HPV 16,18/45 (06/08/2020 4:46 PM CDT) CLINICAL INFORMATION: Information not provided [facility] LMP IUD [facility] Previous Pap 2019 ASCUS [facility] Prev. Bx INFORMATION NOT PROVIDED [facility] SOURCE: Information not provided [facility] Pap, specimen adequacy Satisfactory for evaluation. Endocervical/blum sformation zone component present. [facility] HPV interp Negative for intraepithelial lesion or malignancy. [facility] COMMENTS This Pap test has been evaluated with computer assisted technology. [facility] Commercial Print Salesman BEF, CT(ASCP) CT screening location: [place] [address] [address] [place] [address] [facility] Review recyclable products sorter KMY, CT(ASCP) CT screening location: [place] [address] [address] [place] [address] [facility] Comment [facility] Comment: EXPLANATORY NOTE: The Pap is a screening test for cervical cancer. It is not a diagnostic test and is subject to false negative and false positive results. It is most reliable when a satisfactory sample, regularly obtained, is submitted with relevant clinical findings and history, and when the Pap result is evaluated along with historic and current clinical information. Human papillomavirus RNA, High Risk E6/E7 Detected(A) Not Detected [facility] Comment: This test was performed using the APTIMA HPV Assay ([employer] This assay detects E6/E7 viral messenger RNA (mRNA) from 14 high-risk HPV types (16,18,31,33,35,39,45,51,52,56,58,59,66,68). The analytical performance characteristics of this assay have been determined by [employer]. The modifications have not been cleared or approved by the FDA. This assay has been validated pursuant to the CLIA regulations and is used for clinical purposes. Swab 06/08/2020 4:46 PM CDT 06/09/2020 12:24 PM CDT us Xavier Nunez MD LAB CYTOLOGY ORDERABLES nal Result [facility] [address] [place] [address] [facility] [address] [place] [address] documented in this encounter Visit Diagnoses Diagnosis Encounter for gynecological examination- Primary Cervical high risk HPV (human papillomavirus) test positive Cervical high risk human papillomavirus (HPV) DNA test positive Hot flashes documented in this encounter Discontinued Medications Medication Sig Discontinue Reason Start Date End Da te vitamin E 100 unit/0.25 mL drops 400 Units daily 06/08/2020 documented as of this encounter Historical Medications * This list may reflect changes made after this encounter. vitamin E (vitamin E) 400 unit capsule 400 Units ketoconazole (NIZORAL) 2 % cream APPLY CREAM TOPICALLY TWICE DAILY 05/24/2020 added in this encounter Care Teams Associate Professor Of Economics Relationship Specialty Start Date End Date Vishal Perez MD PCP - General Family Medicine 02/10/19 documented as of this encounter
--- OUTSIDE RECORDS SUMMARY | 2024-11-06 10:41 | XMS_ITS | Encounter Summary ---
Author Organization [facility] Address [address] [place] [address] Phone Care Team Providers Care Midlevel Provider Name Role Phone Vishal Perez MD Primary Care Provider [phone] Encounter Details Date Type Department Care Team (Late st Contact Info) Description 02/20/2018 Orders Only [facility] ProviderRoss MD [address] [place] [address] Social History Tobacco Use Types Packs/Day Years [...] Name Priority Date/Time Associated Diagnosis Comments CYTOLOGY 02/20/2018 12:00 AM CDT documented in this encounter Results * CYTOLOGY (02/20/2018 12:00 AM CDT) Narrative 02/20/2018 12:00 AM CDT Ordered by an unspecified provider. Historical Provider LAB CYTOLOGY ORDERABLES F inal Result documented in this encounter Visit Diagnoses Not on filedocumented in this encounter Care Teams Midlevel Provider Relationship Specialty Start Date End Date Vishal Perez MD PCP - General Family Medicine 02/10/19 documented as of this encounter
--- OUTSIDE RECORDS SUMMARY | 2024-11-06 10:41 | XMS_ITS | Clinical Summary ---
Author Organization [facility] Address [address] [place] [address] Care Team Providers Care High School Principal Name Role Phone Vishal Perez MD Primary Care Provider [phone] Allergies Active Allergy Reactions Criticality Noted Date Comments Diphenhydramine Hives Medium 03/23/2019 Hives Medications SUMAtriptan (IMITREX) 100 mg tablet 3 9 Active [id number] fum-folic acid-dss (SE-FUNMI 19, WITH DOCUSATE,) 29 [...] 40 mg capsule 0 9 Active calcium-vits J5-R-M0-mineral s 166.75 mg- 166.75 unit capsule Rx: Calcium 600-200 MG-UNIT Tablet Active ketoconazole (NIZORAL) 2 % cream APPLY CREAM TOPICALLY TWICE DAILY 0 Active vitamin E (vitamin E) 400 unit capsule 400 Units Active Active Problems Problem Noted Date Diagnosed Date Cervical high risk HPV (human papillomavirus) te st positive 03/23/2019 Mirena IUD 07/201810/05/2018 Surgical History Surgery Date Site/Laterality Comments TONSILLECTOMY AND ADENOIDECTOMY CYST REMOVAL Medical History Medical History Date Comments Anxiety Colitis Stomach ulcer Abnormal Pap smear of cervix Family History Medical History Relation Name Comments Colon cancer Maternal Grandfather Multiple sclerosis Maternal Grandfather Stroke Maternal Grandfather Breast cancer Maternal Grandmother Breast cancer Other Diabetes Other Hyperlipidemia Other Hypertension Other Relation Name Status Comments Maternal Grandfather Maternal Grandmother Other Social History Tobacco Use Types Packs/Day Years [...] on file Sexual Orientation Not on file Obstetrics History Para Term AB IAB SAB Ectopic Multiple Livin g Live Births 0 0 0 0 0 0 0 0 0 0 0 Last Filed Vital Signs Vital Sign Reading [...] Plan of Treatment Not on file Insurance [facility] Care Teams High School Principal Relationship Specialty Start Date End Date Vishal Perez MD PCP - General Family Medicine 02/10/19
--- OUTSIDE RECORDS SUMMARY | 2024-11-06 10:41 | XMS_ITS | Encounter Summary ---
Author Organization [facility] Healthcare Address [address] [place] [address] Care Team Providers Care Hotel Yardperson Name Role Phone Vishal Perez MD Primary Care Provider [phone] Encounter Details Date Type Department Care Team (Late st Contact Info) Description 05/05/2019 12:01 AM CDT Hospital Encounter [facility] Xavier Nunez MD [address] [place] [id number] Social History Tobacco Use Types Packs/Day Years [...] this encounter Medications at Time of Discharge calcium-vits E6-Y-W4-minerals 166.75 mg- 166.75 unit capsule Rx: Calcium 600-200 MG-UNIT Tablet FLUoxetine (PROzac) 40 mg capsule 0 02/24/2019 hydrOXYzine (ATARAX) 50 mg tablet 2 03/08/2019 ibuprofen (ADVIL,MOTRIN) 600 mg tablet 600 mg levonorgestrel (MIRENA) IUDIndications:0 07/2018 by intrauterine route LORazepam (ATIVAN) 0.5 mg tablet 3 03/13/[address] (PROTONIX) 40 mg EC tablet 2 03/08/2019 [id number] fum-folic acid-dss (SE- 19, WITH DOCUSATE,) 29 mg iron- 1 mg-25 mg tablet Rx: Se-Funmi 19 27-1MG Tablet, TAKE: TAKE ONE TABLET BY MOUTH ONCE DAILY, REFILLS: 2 SUMAtriptan (IMITREX) 100 mg tablet 3 03/13/2019 vitamin E 100 unit/0.25 mL drops 400 Units daily 0 documented as of this encounter Plan of Treatment Not on file documented as of this encounter Procedures Procedure Name Priority Date/Time Associated Diagnosis Comments SCAN - PATHOLOGY 05/07/2019 12:0 0 AM CDT documented in this encounter Results * SCAN - PATHOLOGY (05/07/2019 12:00 AM CDT) Narrative 05/07/2019 12:00 AM CDT Ordered by an unspecified provider. us Historical Provider Final Res ult documented in this encounter Visit Diagnoses Not on filedocumented in this encounter Care Teams Hotel Yardperson Relationship Specialty Start Date End Date Vishal Perez MD PCP - General Family Medicine 02/10/19 documented as of this encounter
== END 2024-11-01 10:43 | disposition home or self-care (01) ==
PROVIDERS: PCP Family Medicine; Visit Provider Anesthesiology Pain Medicine
PROC: (CPT 64493; principal; 2024-11-01 10:00)
DX: M47.817 Spondylosis without myelopathy or radiculopathy, lumbosacral region (principal); G89.29 Other chronic pain; F17.210 Nicotine dependence, cigarettes, uncomplicated
CPT/HCPCS: 64493; 64494 ×2; 64495 ×2; 99199; Q9965

== ENCOUNTER 2025-01-25 01:16 | Day surgery (SDC) | payer OTHER, SELFPAY ==
[2025-01-20 11:36] VITALS: BMI 25.1
--- NOTE | 2025-01-20 11:41 | PC.NURSE ---
Report to the Outpatient Waiting Room, entrance under the green pavilion located off [facility], at time _1130_ on date _[phone]_. Planned Procedure Time: _130pm_.? Time changes happen often and if your time is changed the preop area will call you the afternoon before. - You and your visitor will be asked to self-screen and do not enter if you have any COVID symptoms. Please call surgeon if you need to reschedule. - A mask is optional within the hospital at this time. Patients may have clear liquids (water, carbonated beverages, clear teas, apple juice) until 3 hours prior to surgery with a maximum of 20 ounces. - No food from midnight until time of surgery and no smoking, or chewing tobacco (or any form of nicotine). No chewing gum, candy or mints. Take only the following medications with a SIP of water on the morning of surgery: ___Fluoxetine and if needed Lorazepam and or Hydroxyzine.____ DO NOT STOP ANY OF YOUR OTHER PRESCRIPTION MEDICATIONS PRIOR TO SURGERY EXCEPT THE FOLLOWING Hold all vitamins and supplements for 3 days per anesthesiologist. Medications to discontinue per physician ____Aspirin and Ibuprofen 7 days before surgery as instructed by 's office. ____ Date to take last dose Please no make-up, nail sri lankan, hairspray, perfume, deodorant, or body powder the day of surgery.? No jewelry (including any body piercings) or valuables the day of surgery, leave them at home.? Please take a shower or bath the night before, or the morning of, surgery with an antibacterial soap.? Wear comfortable, loose fitting clothing.? - Jewelry must be removed prior to entering the operating room.? Rings and piercings that are not removed may be cut off. - The hospital will not accept responsibility for valuables.? - Please leave all valuables, including medications, at home the day of surgery. If you are going home after surgery, a licensed electric truck driver must drive you home.? - NO public transportation without another adult if you receive anesthesia. - We recommend that an adult stay with you for 24 hours following discharge. - We also recommend that you do not drive, make important decision, drink alcoholic beverages, or take any drugs that were not prescribed by your health care provider for at least 24 hours after your discharge time. Follow any additional instructions given to you from your surgeon. Telephone instructions given to __Kelly___and asked if any additional questions and then verbalized understanding. Patient advised to call surgeon office or pre surgery nurse liaison [phone] if any additional questions.
--- NOTE | 2025-01-20 11:51 | PC.NURSE ---
Report to the Outpatient Waiting Room, entrance under the green pavilion located off [facility], at time _1130_ on date _[phone]_. Planned Procedure Time: _130pm_.? Time changes happen often and if your time is changed the preop area will call you the afternoon before. - You and your visitor will be asked to self-screen and do not enter if you have any COVID symptoms. Please call surgeon if you need to reschedule. - A mask is optional within the hospital at this time. - No food or drink from midnight until time of surgery and no smoking, or chewing tobacco (or any form of nicotine). No chewing gum, candy or mints. Take only the following medications with a SIP of water on the morning of surgery: ___Fluoxetine and if needed Lorazepam and or Hydroxyzine.____ DO NOT STOP ANY OF YOUR OTHER PRESCRIPTION MEDICATIONS PRIOR TO SURGERY EXCEPT THE FOLLOWING Hold all vitamins and supplements for 3 days per anesthesiologist. Medications to discontinue per physician __Aspirin and Ibuprofen 7 days before surgery as instructed by 's office. Date to take last dose Please no make-up, nail taiwanese, hairspray, perfume, deodorant, or body powder the day of surgery.? No jewelry (including any body piercings) or valuables the day of surgery, leave them at home.? Please take a shower or bath the night before, or the morning of, surgery with an antibacterial soap.? Wear comfortable, loose fitting clothing.? - Jewelry must be removed prior to entering the operating room.? Rings and piercings that are not removed may be cut off. - The hospital will not accept responsibility for valuables.? - Please leave all valuables, including medications, at home the day of surgery. If you are going home after surgery, a licensed lunch truck driver must drive you home.? - NO public transportation without another adult if you receive anesthesia. - We recommend that an adult stay with you for 24 hours following discharge. - We also recommend that you do not drive, make important decision, drink alcoholic beverages, or take any drugs that were not prescribed by your health care provider for at least 24 hours after your discharge time. Follow any additional instructions given to you from your surgeon. Telephone instructions given to __Kelly___and asked if any additional questions and then verbalized understanding. Patient advised to call surgeon office or pre surgery nurse liaison [phone] if any additional questions.
--- NOTE | ~2025-01-25 | XR_ITS ---
INTRAOPERATIVE FLUOROSCOPY: CLINICAL HISTORY: 49 years old Female; RADIO FREQUENCY ABLATION PROCEDURE COMMENTS: Limited intraoperative fluoroscopy of the lumbar spine was performed. CUMULATIVE DOSE: 18.6 mGy FLUOROSCOPY TIME: 1.03 seconds FINDINGS/IMPRESSION: Please refer to operative note for further details. Reviewed, dictated and finalized at location A.
--- OUTSIDE RECORDS SUMMARY | 2025-01-25 01:20 | XMS_ITS | Encounter Summary ---
Author Organization [facility] Address [address] [place] [address] Care Team Providers Care Supervisor Roving Name Role Phone Unavailable Primary Care Provider Unavailabl e Encounter Details Date Type Department Care Team (Late st Contact Info) Description 10/31/2020 Lab Requisition [facility] DermPath Lab [address] [facility], [place] [phone] Pj Ashton MD [address] [place] [address] Social History Tobacco Use Types Packs/Day Years [...] Comments DERMATOPATHOLOGY Routine 10/27/2020 12:0 0 AM AUTOMOTIVE PARTS INTERPRETER documented in this encounter Results * DERMATOPATHOLOGY (10/27/2020 12:00 AM AUTOMOTIVE PARTS INTERPRETER) Case Report Dermatopathology Report Case: [id number] Authorizing Provider: Pj Ashton MD Collected: 10/27/2020 12:00 AM Ordering Location: [facility] DermPath Lab Received: 10/31/2020 06:41 AM Pathologist: Cara Hooper MD Specimen: Skin, right mid back 0 4:20 PM AUTOMOTIVE PARTS INTERPRETER DERMATOPATHOLOGY LABORATORY Final Diagnosis Specimen A. SKIN, right mid back: INTRADERMAL MELANOCYTIC NEVUS (D22.5) EPIDERMAL NECROSIS SUGGESTIVE OF EXCORIATION (L98.499) 0 4:20 PM AUTOMOTIVE PARTS INTERPRETER DERMATOPATHOLOGY LABORATORY Clinical History Irr nevus vs mm. Path#[id number] 0 4:20 PM AUTOMOTIVE PARTS INTERPRETER DERMATOPATHOLOGY LABORATORY Gross Description Specimen A: Received is one formalin filled container labeled with the patient's name and designated right mid back. The specimen consists of a shave biopsy measuring 4x3x1 mm. Jar 0. 0 4:20 PM [facility] DERMATOPATHOLOGY LABORATORY Microscopic Description Specimen A. SKIN, right mid back: There are nests of cytologically bland melanocytes within the dermis that mature with depth. The epidermis is focally necrotic and covered with a scale-crust. There is fibrin at the base. 0 4:20 PM [facility] DERMATOPATHOLOGY LABORATORY Disclaimer An external and internal positive and negative controls are appropriate for the histochemical, immunohistochemical and immunofluorescence stain(s) in this case (if any), except where stated explicitly. The performance characteristics of the stain(s) cited in this report were developed and its performance characteristic determined by the Dermatopathology Laboratory at [facility], directed by Dr. Diane Hernández. These tests need not be, and therefore are not, approved by the [place] Food and Drug Administration. The tests are used for clinical purposes. Billing Codes Specimen Charges Stain Charges 60086 1 0 4:20 PM AUTOMOTIVE PARTS INTERPRETER DERMATOPATHOLOGY LABORATORY Embedded Images 0 4:20 PM [facility] DERMATOPATHOLOGY LABORATORY Pathology/Cytolog y TISSUE SPECIMEN FROM SKIN / Unknown 10/27/2020 10/31/2020 6:41 AM AUTOMOTIVE PARTS INTERPRETER Pj Ashton MD LAB - PATHOLOGY/CYTO LOGY ORDERABLES DERMATOPATHOLOGY LABORATORY [facility] - Department of Dermatology [address], [address] [phone] documented in this encounter Visit Diagnoses Not on filedocumented in this encounter
--- OUTSIDE RECORDS SUMMARY | 2025-01-25 01:20 | XMS_ITS | Referral Summary ---
Author Organization [facility] Address [address] [place] [phone] Care Team Providers Care Computer Laboratory Technician Name Role Phone Vishal Perez MD Primary Care Provider + [phone] Allergies Active Allergy Reactions Criticality Noted Date Comments Diphenhydramine Hives Medium 03/23/2019 Hives Medications SUMAtriptan (IMITREX) 100 mg tablet 3 9 Active GBV252-cekm fum-folic acid-dss (SE-FUNMI 19, WITH DOCUSATE,) 29 [...] 40 mg capsule 0 9 Active calcium-vits O3-A-Q3-mineral s 166.75 mg- 166.75 unit capsule Rx: [...] 99 03/31/2013 7:18 AM CDT Temperature 37.1 C (98.7 F) 03/31/2013 7:18 AM CDT Respiratory Rate - - Oxygen Saturation 100% 03/31/2013 7:18 AM CDT Inhaled Oxygen Concentration - - Weight 97.5 kg (215 lb) 06/08/2020 4:05 PM CDT Height 177.8 cm (5' 10 ) 06/08/2020 4:05 PM CDT Body Mass Index 30.85 06/08/2020 4:05 PM CDT Plan of Treatment Not on file Insurance [facility] H[facility]PP[facility] Address: [facility] [id number] [place] [phone] R [facility] H[facility]PPO Address: [facility] [id number] [place] [phone] Care Teams Computer Laboratory Technician Relationship Specialty Start Date End Date Vishal Perez MD PCP - General Family Medicine 02/10/19
--- OUTSIDE RECORDS SUMMARY | 2025-01-25 01:20 | XMS_ITS | Clinical Summary ---
Author Organization [facility] Address [address] [place] [address] Care Team Providers Care Herb Grower Name Role Phone Unavailable Primary Care Provider [...] season) 2024 Influenza Adult (#1) 2024 Meningococcal B Vaccine Aged Out No l onger eligible based on patient's age to complete this topic Meningococcal Vaccine Aged Out No angeline alan [...]
--- OUTSIDE RECORDS SUMMARY | 2025-01-25 01:20 | XMS_ITS | Clinical Summary ---
Author Organization [facility] Address [address] [place] [address] Care Team Providers Care Sparker And Patcher Name Role Phone Unavailable Primary Care Provider Unavailabl e Source Comments [facility],non-owned Affiliates and Associated Physician Practices is amultiple site organization consisting of ambulatory clinics and hospital sitesin [place], [place], [place] and [place]. This disclosure is being madepursuant to the Care Everywhere program and may not contain all information available regarding this patient. Last updated 18.[facility] Social History Tobacco Use Types Packs/Day Years [...] of 3 - 19+ 3-dose series) 1995 COVID-19 VACCINE ( - 2023-2 5 season) 2024 INFLUENZA VACCINE (#1) 2024 DEPRESSION SCREENING 11/17/2024 ZOSTER VACCINE (1 of 2) 2026 HIB VACCINE Aged Out No longer eligi ble based on patient's age to complete this topic HPV VACCINE Aged Out No longer eligi ble based on patient's age to complete this topic MENINGOCOCCAL (Group B) VACCINE Aged Out No longer eligible based on patient's age to complete this topic MENINGOCOCCAL VACCINE Aged Out No angeline alan eligible based on patient's age to complete this topic PNEUMOCOCCAL VACCINE Aged Out No long er eligible based on patient's age to complete this topic
--- OUTSIDE RECORDS SUMMARY | 2025-01-25 01:20 | XMS_ITS | Clinical Summary ---
Author Organization [facility] Address [address] [place] [phone] Care Team Providers Care Employment Program Representative Name Role Phone Vishal Perez MD Primary Care Provider + [phone] Allergies Active Allergy Reactions Criticality Noted Date Comments Diphenhydramine Hives Medium 03/23/2019 Hives Medications SUMAtriptan (IMITREX) 100 mg tablet 3 9 Active NSJ257-cgut fum-folic acid-dss (SE-FUNMI 19, WITH DOCUSATE,) 29 [...] 40 mg capsule 0 9 Active calcium-vits T7-K-U2-mineral s 166.75 mg- 166.75 unit capsule Rx: [...] Plan of Treatment Not on file Insurance [facility] Care Teams Employment Program Representative Relationship Specialty Start Date End Date Vishal Perez MD PCP - General Family Medicine 02/10/19
--- OUTSIDE RECORDS SUMMARY | 2025-01-25 01:20 | XMS_ITS | Encounter Summary ---
Author Organization [facility] Address [address] [place] [address] Phone Care Team Providers Care Insurance Claim Approver Name Role Phone Vishal Perez MD Primary Care Provider [phone] Encounter Details Date Type Department Care Team (Late st Contact Info) Description 02/20/2018 Orders Only [facility] ProviderRoss MD [address] [place] [address] Social History Tobacco Use Types Packs/Day [...] on filedocumented in this encounter Care Teams Insurance Claim Approver Relationship Specialty Start Date End Date Vishal Perez MD PCP - General Family Medicine 02/10/19 documented as of this encounter
--- OUTSIDE RECORDS SUMMARY | 2025-01-25 01:20 | XMS_ITS | Referral Summary ---
Author Organization [facility] Address [address] [facility] [place] [address] Care Team Providers Care Sociology Instructor Name Role Phone Unavailable Primary Care Provider Unavailabl e Source Comments [facility],non-owned Affiliates and Associated Physician Practices is amultiple site organization consisting of ambulatory clinics and hospital sitesin [place], [place], [place] and [place]. This disclosure is being madepursuant to the Care Everywhere program and may not contain all information available regarding this patient. Last updated 18.[facility] Social History Tobacco Use Types Packs/Day Years Used Date Smoking Tobacco: Never Assessed Sex and Gender Information Value Date Recorded Sex Assigned at Not on file Gender Identity Not on file Sexual Orientation Not on file Plan of Treatment Not on file
--- OUTSIDE RECORDS SUMMARY | 2025-01-25 01:20 | XMS_ITS | Encounter Summary ---
Author Organization [facility] Address [address] [facility] [place] [address] Care Team Providers Care Vpk Teacher Name Role Phone Unavailable Primary Care Provider Unavailabl e Encounter Details Date Type Department Care Team (Late st Contact Info) Description 01/10/2020 Lab Requisition [facility] DermPath Lab [address] [facility] [place] [phone] Pj Ashton MD [address] [place] [place] [address] Social History Tobacco Use Types Packs/Day Years [...] Comments DERMATOPATHOLOGY Routine 01/07/2020 12:0 0 AM SNACK FOODS MIXER OPERATOR documented in this encounter Results * DERMATOPATHOLOGY (01/07/2020 12:00 AM SNACK FOODS MIXER OPERATOR) Case Report Dermatopathology Report Case: [id number] Authorizing Provider: Pj Ashton MD Collected: 01/07/2020 12:00 AM Ordering Location: [facility] DermPath Lab Received: 01/10/2020 02:56 PM Pathologist: Emmy Hernández MD Specimen: Skin, right eyebrow 0 1:51 PM SNACK FOODS MIXER OPERATOR DERMATOPATHOLOGY LABORATORY Final Diagnosis Specimen A. 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 Check margins. Path # [id number]. 0 1:51 PM [facility] DERMATOPATHOLOGY LABORATORY Gross Description Specimen A: Received is one formalin filled container labeled with the patient's name and designated right eyebrow. The specimen consists of a shave biopsy measuring [id number], bisected. The margin is inked green. Jar 0. 0 1:51 PM [facility] DERMATOPATHOLOGY LABORATORY Microscopic Description Specimen A. SKIN, right eyebrow: Aggregates of basaloid (matrical) and shadow cells are surrounded by fibrosis and granulomatous inflammation. This lesion is present at the margin of the specimen. 0 1:51 PM [facility] DERMATOPATHOLOGY LABORATORY Disclaimer An external and internal positive and negative controls are appropriate for the histochemical, immunohistochemical and immunofluorescence stain(s) in this case (if any), except where stated explicitly. The performance characteristics of the stain(s) cited in this report were developed and its performance characteristic determined by the Dermatopathology Laboratory at [facility], directed by Dr. Diane Hernández. These tests need not be, and therefore are not, approved by the [place] Food and Drug Administration. The tests are used for clinical purposes. Billing Codes Specimen Charges Stain Charges 49637 1 0 1:51 PM SNACK FOODS MIXER OPERATOR DERMATOPATHOLOGY LABORATORY Embedded Images 0 1:51 PM [facility] DERMATOPATHOLOGY LABORATORY Pathology/Cytolog y TISSUE SPECIMEN FROM SKIN / Unknown 01/07/2020 01/10/2020 2:56 PM SNACK FOODS MIXER OPERATOR Pj Ashton MD LAB - PATHOLOGY/CYTO LOGY ORDERABLES DERMATOPATHOLOGY LABORATORY [facility] - Department of Dermatology [address] [place] [address], [address]th [place] [address], [facility] [phone] documented in this encounter Visit Diagnoses Not on filedocumented in this encounter
--- OUTSIDE RECORDS SUMMARY | 2025-01-25 01:20 | XMS_ITS | Patient Health Summary ---
Author Organization [facility] Address [address] [facility] [place] [address] Care Team Providers Care Plywood Stock Grader Name Role Phone Unavailable Primary Care Provider Unavailabl e Note from [facility],non-owned Affiliates and Associated Physician Practices is amultiple site organization consisting of ambulatory clinics and hospital sitesin [place], [place], [place] and [place]. This disclosure is being madepursuant to the Care Everywhere program and may not contain all information available regarding this patient. Last updated 18.[facility] Social History Tobacco Use Types Packs/Day Years Used Date Smoking Tobacco: Never Assessed Sex and Gender Information Value Date Recorded Sex Assigned at Not on file Gender Identity Not on file Sexual Orientation Not on file Procedures * DERMATOPATHOLOGY(Performed 10/27/2020) * DERMATOPATHOLOGY(Performed 01/07/2020) * DERMATOPATHOLOGY(Performed 12/03/2012) Results * DERMATOPATHOLOGY (10/27/2020 12:[address] SUPERVISOR) Only the most recent of3 resultswithin the time period is included. Case Report Dermatopathology Report Case: [id number] Authorizing Provider: Pj Ashton MD Collected: 10/27/2020 12:00 AM Ordering Location: [facility] DermPath Lab Received: 10/31/2020 06:41 AM Pathologist: Cara Hooper MD Specimen: Skin, right mid back 0 4:[address] SUPERVISOR DERMATOPATHOLOGY LABORATORY Final Diagnosis Specimen A. SKIN, right mid back: INTRADERMAL MELANOCYTIC NEVUS (D22.5) EPIDERMAL NECROSIS SUGGESTIVE OF EXCORIATION (L98.499) 0 4:[address] SUPERVISOR DERMATOPATHOLOGY LABORATORY Clinical History Irr nevus vs mm. Path#[id number] 0 4:20 PM [facility] DERMATOPATHOLOGY LABORATORY Gross Description Specimen A: Received is one formalin filled container labeled with the patient's name and designated right mid back. The specimen consists of a shave biopsy measuring 4x3x1 mm. Jar 0. 0 4:20 PM [facility] DERMATOPATHOLOGY LABORATORY Microscopic Description Specimen A. SKIN, right mid back: There are nests of cytologically bland melanocytes within the dermis that mature with depth. The epidermis is focally necrotic and covered with a scale-crust. There is fibrin at the base. 0 4:20 PM [facility] DERMATOPATHOLOGY LABORATORY Disclaimer An external and internal positive and negative controls are appropriate for the histochemical, immunohistochemical and immunofluorescence stain(s) in this case (if any), except where stated explicitly. The performance characteristics of the stain(s) cited in this report were developed and its performance characteristic determined by the Dermatopathology Laboratory at [facility], directed by Dr. Diane Hernández. These tests need not be, and therefore are not, approved by the [place] Food and Drug Administration. The tests are used for clinical purposes. Billing Codes Specimen Charges Stain Charges 34130 1 0 4:20 PM [facility] DERMATOPATHOLOGY LABORATORY Embedded Images 0 4:20 PM [facility] DERMATOPATHOLOGY LABORATORY Pathology/Cytolog y TISSUE SPECIMEN FROM SKIN / Unknown 10/27/2020 10/31/2020 6:[address] SUPERVISOR Pj Ashton MD LAB - PATHOLOGY/CYTO LOGY ORDERABLES DERMATOPATHOLOGY LABORATORY [facility] - Department of Dermatology [address], [address] [phone]
[2025-01-25 11:43] VITALS: BP 129/76; PULSE 89; RESP 16; TEMP 36.6; O2SAT 100; BMI 25.2
[2025-01-25] MEDS: LACTATED RINGERS 1,000 ML 30 ML IV CONT (11:55)
--- NOTE | 2025-01-25 12:14 | WPDANESEPPF ---
Anes - Initial Pre Proc Eval Procedure: Operation Date: 01/25/25 13:30 Proposed Procedures p Thermal Radio Frequency Ablation Bilateral L3, L4, L5 Medial Branches/Dorsal Rami Addressing Bilateral L4-5, L5-S1 Facet Joints Under Fluoroscopic Guidance - Dilshad Medel MD Date/Time: 01/25/25 12:14 Surgeon: Dilshad Medel MD Pre Op Diagnosis: spondylosis lumbosacral region Patient Data Age: 49 Gender: F Height: 1.78 m Weight: 79.9 kg Allergies Allergy/AdvReac Type Severity Reaction Status Date / Time chlorphentermine Allergy Unknown Unknown Verified 01/25/25 12:06 diphenhydramine Allergy Unknown Unknown Verified 01/25/25 12:06 phenylephrine Allergy Unknown Unknown Verified 01/25/25 12:06 phenylpropanolamine Allergy Unknown Unknown Verified 01/25/25 12:06 Home Medications ?Medication ?Instructions ?Recorded ?Confirmed ?Type levonorgestrel (Mirena) 1 device intrauterine ONCE 12/11/20 01/20/25 History ibuprofen 800 mg tablet 800 mg PO TID PRN pain #270 tabs 04/09/22 01/25/25 Rx hydroxyzine HCl 50 mg tablet See Rx Instructions .Route 07/18/23 01/20/25 Rx .COMPLEX #30 tabs ascorbic acid (vitamin C) 500 mg 500 mg PO DAILY 04/01/24 01/25/25 History capsule milk thistle 150 mg capsule 150 mg PO BID 04/01/24 01/25/25 History aspirin 325 mg tablet 325 mg PO DAILY 08/10/24 01/25/25 History melatonin 1 mg tablet 1 mg PO QHS 08/10/24 01/20/25 History pantoprazole 40 mg tablet,delayed 40 mg PO QAM 08/10/24 01/25/25 History release (Protonix) ondansetron HCl 4 mg tablet 4 mg PO Q8H PRN nausea and 09/22/24 01/20/25 Rx vomiting #20 tabs cholecalciferol (vitamin D3) 125 125 mcg PO DAILY 10/25/24 01/25/25 History mcg (5,000 unit) tablet (Vitamin D3) cyanocobalamin (vitamin B-12) 5,000 mcg sublingual DAILY 10/25/24 01/25/25 History 5,000 mcg sublingual tablet (Vitamin B-12) magnesium 200 mg tablet 200 mg PO DAILY 10/25/24 01/25/25 History vitamin E 400 unit tablet 400 unit PO DAILY 10/25/24 01/25/25 History zinc 50 mg tablet 50 mg PO DAILY 10/25/24 01/25/25 History fluoxetine 20 mg capsule See Rx Instructions .Route 10/31/24 01/25/25 Rx .COMPLEX #90 caps fluoxetine 40 mg capsule See Rx Instructions .Route 10/31/24 01/25/25 Rx .COMPLEX #90 caps calcium carbonate 500 mg capsule 500 mg PO DAILY 11/08/24 01/25/25 History sumatriptan succinate 100 mg 100 mg PO ONCE PRN migraine 11/15/24 01/20/25 Rx tablet (Imitrex) headache #10 tabs Se--19 29 mg iron-1 mg See Rx Instructions .Route 01/12/25 01/25/25 Rx tablet (PNV 119-iron fum-folic .COMPLEX #30 tabs acid) lorazepam 0.5 mg tablet (Ativan) 0.5 mg PO BID PRN anxiety #60 tabs 01/16/25 01/20/25 Rx Patient hx anesthesia problems: none Family hx anesthesia problems: none Results Review: All pre-operative results and documents have been reviewed as part of the pre-operative evaluation. [facility] Past Medical History Medical History Lumbar spondylosis Low back pain Shift work sleep disorder Screening for lipid disorders Elevated glucose Broken rib Anxiety disorder, unspecified Migraine, unspecified, intractable, with status migrainosus Palindromic rheumatism Healthy female adult Surgical History Surgical History Hx of tonsillectomy No history of previous surgery Family History Family History Grandparent Cerebrovascular accident, Onset Age: 76 Family history of elevated blood lipids Family history of malignant neoplasm, Onset Age: 67 Family history of lung cancer, Onset Age: 67 Diabetes mellitus Father Hypertension Diabetes mellitus Mother Hypertension Thyroid activity decreased Pacemaker Sibling Family history of diabetes mellitus in first degree relative Diabetes mellitus Other Rheumatoid arthritis Other Family history of congestive heart failure Family history of coronary artery disease Social History Social History Smoking packs per day: 1 Smoking cigarettes per day: 20.0 Years smoked: 30 Smoking pack-years: 30.00 Smoking status: Current every day smoker Tobacco type: cigarettes Second hand tobacco smoke exposure: No Alcohol intake: current Drinks per week: 10 Substance use: never Substance use type: does not use Do You Feel Safe in your Home?: Yes Lack of Transportation: No Lack of Food: Never True Current Housing: I Have Housing Concerned About Future Housing: No Difficulty Paying Gas/Electric Bills: No Difficulty Paying for Meds: No Currently Unemployed: No Education: Bachelor's Degree Difficulty w/ Childcare or Family Care: No Living arrangements: with family Occupation/Education: occupation 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 Gender identity (if verbalized by the patient): Female Spiritual care concerns: No Anes - Eval Final PreProcedure Day of Procedure 01/25/25 12:14 Patient weight: normal Heart: regular rate and rhythm Lungs: clear to auscultation Airway: Mallampati scale class II Neurological: alert and oriented Last oral intake: >/= 8 hours ASA classification: III Emergent: no Anesthetic plan: proceed Anesthesia type and monitoring: general GIVS and standard monitoring Results Review: All pre-operative results and documents have been reviewed as part of the pre-operative evaluation. Informed Consent: The patient's anesthetic plan and its attendant risks and benefits were discussed with the patient/family/POA. Questions were solicited and answers provided to the satisfaction of the patient/family/POA.
--- NOTE | 2025-01-25 12:14 | WPDHPUPDATE1 ---
History and Physical Update Update Date/Time: 01/25/25 12:14 History and Physical has been reviewed, including an updated exam of the patient. There are NO changes in the patient's condition. Risks, benefits, and alternatives have been discussed and questions answered. Patient agrees to proceed with procedure.
--- NOTE | 2025-01-25 12:15 | W.PM.PROC2 ---
Procedure Note - Detailed Date of Procedure 01/25/25 Pre-op Diagnosis spondylosis lumbosacral region Post-op Diagnosis Same Procedure Performed Thermal Radiofrequency Ablation of the Bilateral Lumbar Medial Branches/Dorsal Ramus at the L3, L4, L5 Levels Treating the Bilateral L4-5, L5-S1 Facet Joints Under Fluoroscopic Guidance (4 Levels Treated). Surgeon Dilshad Medel MD Rock Singer None. Anesthesia Local (w/ MAC) Description of Procedure INFORMED CONSENT: Risks, benefits and alternatives to the procedure were discussed in detail with the patient who expressed explicit understanding and consent to proceed. Patient was informed verbally and in written form regarding the risks associated with the procedure including the low risk of serious infection, bleeding/bruising, allergic reaction, nerve or organ injury, paralysis, procedural site pain or discomfort, worsening pain and/or mobility, failure to treat and/or disfigurement. The patient expressed explicit understanding and consent to proceed. All materials required for the procedure were available prior to procedure start. Site and side were marked prior to procedure and confirmed in the presence of the patient. PROCEDURE IN DETAIL: The patient was brought to the procedural suite and placed in the prone position. Patient was made comfortable with use of pillows under the head/chest, hips and ankles. ASA standard monitors were applied and used throughout the procedure. Skin overlying the injection site on the affected side(s) was prepared broadly with ChloraPrep applicator and draped in a sterile manner. Aseptic technique was used throughout. The endplates of the vertebral bodies at the site(s) of interest were aligned in the AP view. Ipsilateral oblique angulation was utilized to optimize visualization of the intersection between the superior articulating process and transverse process at each target site. Local anesthesia was established by infiltration with approximately 5 mL of 1% lidocaine via a 1-1/2 inch 27-gauge needle divided over each site treated. A 16-gauge 100mm Trendzoian RF needle with curved 10mm active tip was advanced in the AP view until the needle tip contacted the periosteum at the target site, the right L3 medial branch. Lateral view was utilized to adjust and confirm the appropriate placement of the needle tip just anterior to the facet line, superior to the pedicle and posterior to the foramen. Grounding electrode was in place and functioning. The appropriately-sized RF cannula was inserted into the RF needle and motor stimulation was performed with no subjective or objective evidence of recruited muscle activity with stimulation up to 2.0 volts at a frequency of 2Hz. 1.5 mL of 2.0% PF lidocaine was injected after negative aspiration. After a 90s pause, lesioning was performed to 90 degrees centigrade for 90s ensuring lack of symptoms in the extremity throughout. Needle was rotated 180 degrees and lesioning repeated in a similar manner. Patient tolerated this well. No parasthesias were elicited. Needle was removed completely intact without difficulty. The same procedure was repeated for all intended levels/ structures on the ipsilateral side, right L4, L5 medial branch/dorsal ramus with identical methodology, modified to compensate for new location, with similar results and no evidence of complication. The same exact procedure was repeated for all remaining levels on the contralateral side, left L3, L4, L5 medial branches/dorsal ramus, modified as necessary to accommodate for the new target location with identical findings/results and no evidence of complication. Images were saved and documented in the patient chart. Patient's skin was cleansed and sterile bandage applied. The patient tolerated the procedure well. The patient was transported to the recovery area in stable condition where they were observed for an appropriate amount of time prior to discharge, without evidence of complication. The patient was instructed to avoid excessive activity for the next 48 hours, including climbing and frequent use of stairs. Showers only for 48 hours. They were instructed not to drive or operate heavy machinery for 24 hours. They are to monitor for severe headaches, fevers, chills, night sweats, erythema/swelling at the site or any other signs of infection, bleeding/bruising, bowel or bladder changes as well as new pain, weakness or numbness in the upper or lower extremity. Should they notice these changes, they are instructed to call our office immediately or report directly to the nearest Emergency Department if no answer or if after posted office hours. COMPLICATIONS: None COMMENTS: None Complications No immediate complications Condition Stable Disposition PACU [facility] Billing Surgery - Charge Forward: Surgery Billing
[2025-01-25 12:22] LABS: BEDSIDEPREGUCG Negative (Negative)
[2025-01-25] MEDS: BUPivacaine HCL 0.5% 10 ML AMP INFILTRATE (12:46)
[2025-01-25] MEDS: LIDOCAINE 2% PF LOCAL INJ 5 ML VIAL 10 ML INFILTRATE (12:47)
[2025-01-25] MEDS: LIDOCAINE 1% PF INJ 5 ML VIAL 10 ML INFILTRATE (12:48)
[2025-01-25 13:10] VITALS: BP 104/52; PULSE 89; RESP 12; O2SAT 97
[2025-01-25 13:40] VITALS: BP 104/63; PULSE 80
[2025-01-25 14:05] VITALS: BP 129/75; PULSE 78
== END 2025-01-25 14:14 | disposition home or self-care (01) ==
PROVIDERS: Visit Provider Anesthesiology Pain Medicine
PROC: (CPT 64635; principal; 2025-01-25 13:30)
DX: M47.817 Spondylosis without myelopathy or radiculopathy, lumbosacral region (principal); F17.210 Nicotine dependence, cigarettes, uncomplicated
CPT/HCPCS: 64635; 64636 ×6; 99199; J2003; J2250; J3010; J7120

== ENCOUNTER 2025-02-17 22:59 | Emergency (ER) | payer OTHER, SELFPAY ==
--- OUTSIDE RECORDS SUMMARY | 2025-02-17 23:01 | XMS_ITS | Encounter Summary ---
Author Organization [facility] Address [address] [place] [address] Care Team Providers Care Manager Investigations Name Role Phone Unavailable Primary Care Provider Unavailabl e Encounter Details Date Type Department Care Team (Late st Contact Info) Description 01/10/2020 Lab Requisition [facility] DermPath Lab [address] [place] [id number] Pj Ashton MD [address] [place] [address] Social History Tobacco Use Types Packs/Day Years [...] Comments DERMATOPATHOLOGY Routine 01/07/2020 12:0 0 AM ORACLE MANUFACTURING CONSULTANT documented in this encounter Results * DERMATOPATHOLOGY (01/07/2020 12:00 AM ORACLE MANUFACTURING CONSULTANT) Case Report Dermatopathology Report Case: [id number] Authorizing Provider: Pj Ashton MD Collected: 01/07/2020 12:00 AM Ordering Location: [facility] DermPath Lab Received: 01/10/2020 02:56 PM Pathologist: Emmy Hernández MD Specimen: Skin, right eyebrow 0 1:51 PM ORACLE MANUFACTURING CONSULTANT DERMATOPATHOLOGY LABORATORY Final Diagnosis Specimen A. 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 Check margins. Path # [id number] 0 1:[address] [facility] DERMATOPATHOLOGY LABORATORY Gross Description Specimen A: Received is one formalin filled container labeled with the patient's name and designated right eyebrow. The specimen consists of a shave biopsy measuring [id number], bisected. The margin is inked green. Jar 0. 0 1:[address] [facility] DERMATOPATHOLOGY LABORATORY Microscopic Description Specimen A. SKIN, right eyebrow: Aggregates of basaloid (matrical) and shadow cells are surrounded by fibrosis and granulomatous inflammation. This lesion is present at the margin of the specimen. 0 1:[address] [facility] DERMATOPATHOLOGY LABORATORY Disclaimer An external and internal positive and negative controls are appropriate for the histochemical, immunohistochemical and immunofluorescence stain(s) in this case (if any), except where stated explicitly. The performance characteristics of the stain(s) cited in this report were developed and its performance characteristic determined by the Dermatopathology Laboratory at [facility], directed by Dr. Diane Hernández. These tests need not be, and therefore are not, approved by the [place] Food and Drug Administration. The tests are used for clinical purposes. Billing Codes Specimen Charges Stain Charges 13873 1 0 1:51 PM ORACLE MANUFACTURING CONSULTANT DERMATOPATHOLOGY LABORATORY Embedded Images 0 1:[address] [facility] DERMATOPATHOLOGY LABORATORY Pathology/Cytolog y TISSUE SPECIMEN FROM SKIN / Unknown 01/07/2020 01/10/2020 2:56 PM ORACLE MANUFACTURING CONSULTANT Pj Ashton MD LAB - PATHOLOGY/CYTO LOGY ORDERABLES DERMATOPATHOLOGY LABORATORY [facility] - Department of Dermatology [address] [place] [address], [address] [place] [address], [facility] [phone] documented in this encounter Visit Diagnoses Not on filedocumented in this encounter
--- OUTSIDE RECORDS SUMMARY | 2025-02-17 23:01 | XMS_ITS | Referral Summary ---
Author Organization [facility] Address [address] [place] [phone] Care Team Providers Care Videogame Tester Name Role Phone Vishal Perez MD Primary Care Provider + [phone] Allergies Active Allergy Reactions Criticality Noted Date Comments Diphenhydramine Hives Medium 03/23/2019 Hives Medications SUMAtriptan (IMITREX) 100 mg tablet 3 9 Active [id number] fum-folic acid-dss (SE-CAMILLA 19, WITH DOCUSATE,) 29 mg iron- 1 mg-25 mg tablet Rx: Se- 19 27-1MG Tablet, TAKE: TAKE ONE TABLET [...] 40 mg capsule 0 9 Active calcium-vits P6-C-A9-mineral s 166.75 mg- 166.75 unit capsule Rx: [...] Plan of Treatment Not on file Insurance R [facility] Care Teams Videogame Tester Relationship Specialty Start Date End Date Vishal Perez MD PCP - General Family Medicine 02/10/19
--- OUTSIDE RECORDS SUMMARY | 2025-02-17 23:01 | XMS_ITS | Encounter Summary ---
Author Organization [facility] Address [address] [place] [address] Phone Care Team Providers Care Steel Heater Name Role Phone Vishal Perez MD Primary Care Provider [phone] Encounter Details Date Type Department Care Team (Late st Contact Info) Description 02/20/2018 Orders Only [facility] ProviderRoss MD [address] [place] [id number] Social History Tobacco Use Types Packs/Day [...] on filedocumented in this encounter Care Teams Steel Heater Relationship Specialty Start Date End Date Vishal Perez MD PCP - General Family Medicine 02/10/19 documented as of this encounter
--- OUTSIDE RECORDS SUMMARY | 2025-02-17 23:01 | XMS_ITS | Encounter Summary ---
Author Organization [facility] Address [address] [place] [address] Care Team Providers Care Application Operations Engineer Name Role Phone Unavailable Primary Care Provider Unavailabl e Encounter Details Date Type Department Care Team (Late st Contact Info) Description 10/31/2020 Lab Requisition [facility] DermPath Lab [address] [place] [phone] Pj Ashotn MD [address] [place] [address] Social History Tobacco Use Types Packs/Day Years [...] Comments DERMATOPATHOLOGY Routine 10/27/2020 12:0 0 AM MARKETING SERVICES VICE PRESIDENT documented in this encounter Results * DERMATOPATHOLOGY (10/27/2020 12:00 AM MARKETING SERVICES VICE PRESIDENT) Case Report Dermatopathology Report Case: [id number] Authorizing Provider: Pj Ashton MD Collected: 10/27/2020 12:00 AM Ordering Location: [facility] DermPath Lab Received: 10/31/2020 06:41 AM Pathologist: Cara Hooper MD Specimen: Skin, right mid back 0 4:20 PM MARKETING SERVICES VICE PRESIDENT DERMATOPATHOLOGY LABORATORY Final Diagnosis Specimen A. SKIN, right mid back: INTRADERMAL MELANOCYTIC NEVUS (D22.5) EPIDERMAL NECROSIS SUGGESTIVE OF EXCORIATION (L98.499) 0 4:20 PM MARKETING SERVICES VICE PRESIDENT DERMATOPATHOLOGY LABORATORY Clinical History Irr nevus vs mm. Path#[id number] 0 4:20 PM MARKETING SERVICES VICE PRESIDENT DERMATOPATHOLOGY LABORATORY Gross Description Specimen A: Received is one formalin filled container labeled with the patient's name and designated right mid back. The specimen consists of a shave biopsy measuring 4x3x1 mm. Jar 0. 0 4:20 PM [facility] DERMATOPATHOLOGY LABORATORY Microscopic Description Specimen A. SKIN, right mid back: There are nests of cytologically bland melanocytes within the dermis that mature with depth. The epidermis is focally necrotic and covered with a scale-crust. There is fibrin at the base. 0 4:20 PM [facility] DERMATOPATHOLOGY LABORATORY Disclaimer An external and internal positive and negative controls are appropriate for the histochemical, immunohistochemical and immunofluorescence stain(s) in this case (if any), except where stated explicitly. The performance characteristics of the stain(s) cited in this report were developed and its performance characteristic determined by the Dermatopathology Laboratory at [facility], directed by Dr. Diane Hernández. These tests need not be, and therefore are not, approved by the [place] Food and Drug Administration. The tests are used for clinical purposes. Billing Codes Specimen Charges Stain Charges 12487 1 0 4:20 PM MARKETING SERVICES VICE PRESIDENT DERMATOPATHOLOGY LABORATORY Embedded Images 0 4:20 PM [facility] DERMATOPATHOLOGY LABORATORY Pathology/Cytolog y TISSUE SPECIMEN FROM SKIN / Unknown 10/27/2020 10/31/2020 6:41 AM MARKETING SERVICES VICE PRESIDENT Pj Ashton MD LAB - PATHOLOGY/CYTO LOGY ORDERABLES DERMATOPATHOLOGY LABORATORY [facility] - Department of Dermatology [address], [address] [phone] documented in this encounter Visit Diagnoses Not on filedocumented in this encounter
--- OUTSIDE RECORDS SUMMARY | 2025-02-17 23:01 | XMS_ITS | Clinical Summary ---
Author Organization [facility] Address [address] [place] [address] Care Team Providers Care Shot Core Drill Operator Helper Name Role Phone Unavailable Primary Care Provider [...]
--- OUTSIDE RECORDS SUMMARY | 2025-02-17 23:01 | XMS_ITS | Clinical Summary ---
Author Organization [facility] Address [address] [place] [phone] Care Team Providers Care Television Cabinet Finisher Name Role Phone Vishal Perez MD Primary Care Provider + [phone] Allergies Active Allergy Reactions Criticality Noted Date Comments Diphenhydramine Hives Medium 03/23/2019 Hives Medications SUMAtriptan (IMITREX) 100 mg tablet 3 9 Active [id number] fum-folic acid-dss (SE-CAMILLA 19, WITH DOCUSATE,) 29 [...] 40 mg capsule 0 9 Active calcium-vits B9-O-B1-mineral s 166.75 mg- 166.75 unit capsule Rx: [...] Plan of Treatment Not on file Insurance [facility] Care Teams Television Cabinet Finisher Relationship Specialty Start Date End Date Vishal Perez MD PCP - General Family Medicine 02/10/19
--- OUTSIDE RECORDS SUMMARY | 2025-02-17 23:01 | XMS_ITS | Clinical Summary ---
Author Organization [facility] Address [address] [place] [address] Care Team Providers Care Psychiatric Attendant Name Role Phone Unavailable Primary Care Provider Unavailabl e Source Comments [facility] [employer],non-owned Affiliates and Associated Physician Practices is amultiple site organization consisting of ambulatory clinics and hospital sitesin [place], [place], [place] and [place]. This disclosure is being madepursuant to the Care Everywhere program and may not contain all information available regarding this patient. Last updated 18.[facility] [employer] Social History Tobacco Use Types Packs/Day Years [...] VACCINE ( - 2023-2 5 season) 2024 DEPRESSION SCREENING 11/17/2024 INFLUENZA VACCINE (Season Ended) 2025 ZOSTER VACCINE (1 of 2) 2026 HIB VACCINE Aged Out No longer eligi ble based on patient's age to complete this topic HPV VACCINE Aged Out No longer eligi ble based on patient's age to complete this topic MENINGOCOCCAL (Group B) VACC INE SHARED DECISION-MAKING Aged Out No longer eligibl e based on patient's age to complete this topic MENINGOCOCCAL GROUPS A/C/Y/W VACCINE Aged Out No longer eligible b ased on patient's age to complete this topic PNEUMOCOCCAL VACCINE Aged Out No long er eligible based on patient's age to complete this topic
[2025-02-17 23:04] VITALS: BP 144/75; PULSE 99; RESP 17; O2SAT 98
[2025-02-17 23:16] VITALS: PULSE 99
--- NOTE | 2025-02-17 23:18 | ED_ITS ---
HPI - Dizziness General Chief Complaint: Dizziness Stated Complaint: dizzy Time Seen by Provider: 02/17/25 23:05 History of Present Illness HPI Narrative: 49-year-old female with a past medical history including migraine headaches and chronic low back pain. Patient presents to the emergency department for complaints of feeling dizziness. She describes it is as a presyncope type syndrome with brain fog and migraine headache. Denies any room spinning sensations. Mild epigastric discomfort but no chest pain shortness a breath. No back pain. No neurological complaints such as finger tingling or weakness in the extremities. Was otherwise in her normal state of health but did wake up feeling like she was having a migraine. She took 4 Excedrin migraines at home. Normally has sumatriptan but she did not take this. Denies any head trauma. No anticoagulation use. Recent travel to [facility] or other family members had GI symptoms but presently patient denies any vomiting or diarrhea. Related Data Home Medications ?Medication ?Instructions ?Recorded ?Confirmed ?Last Taken ?Type levonorgestrel (Mirena) 1 device intrauterine ONCE 12/11/20 01/20/25 Unknown History ascorbic acid (vitamin C) 500 mg 500 mg PO DAILY 04/01/24 01/25/25 01/22/25 History capsule milk thistle 150 mg capsule 150 mg PO BID 04/01/24 01/25/25 01/22/25 History aspirin 325 mg tablet 325 mg PO DAILY 08/10/24 01/25/25 01/18/25 History melatonin 1 mg tablet 1 mg PO QHS 08/10/24 01/20/25 Unknown History pantoprazole 40 mg tablet,delayed 40 mg PO QAM 08/10/24 01/25/25 01/24/25 History release (Protonix) cholecalciferol (vitamin D3) 125 125 mcg PO DAILY 10/25/24 01/25/25 01/22/25 History mcg (5,000 unit) tablet (Vitamin D3) cyanocobalamin (vitamin B-12) 5,000 mcg sublingual DAILY 10/25/24 01/25/25 01/22/25 History 5,000 mcg sublingual tablet (Vitamin B-12) magnesium 200 mg tablet 200 mg PO DAILY 10/25/24 01/25/25 01/22/25 History vitamin E 400 unit tablet 400 unit PO DAILY 10/25/24 01/25/25 01/22/25 History zinc 50 mg tablet 50 mg PO DAILY 10/25/24 01/25/25 01/22/25 History calcium carbonate 500 mg capsule 500 mg PO DAILY 11/08/24 01/25/25 01/22/25 History Allergies Allergy/AdvReac Type Severity Reaction Status Date / Time chlorphentermine Allergy Unknown Unknown Verified 01/25/25 12:06 diphenhydramine Allergy Unknown Unknown Verified 01/25/25 12:06 phenylephrine Allergy Unknown Unknown Verified 01/25/25 12:06 phenylpropanolamine Allergy Unknown Unknown Verified 01/25/25 12:06 Review of Systems 2 Review of Systems: As reviewed above in HPI [facility] Past Medical History Medical History Lumbar spondylosis Low back pain Shift work sleep disorder Screening for lipid disorders Elevated glucose Broken rib Anxiety disorder, unspecified Migraine, unspecified, intractable, with status migrainosus Palindromic rheumatism Healthy female adult Surgical History Surgical History Hx of tonsillectomy No history of previous surgery Family History Family History Grandparent Cerebrovascular accident, Onset Age: 76 Family history of elevated blood lipids Family history of malignant neoplasm, Onset Age: 67 Family history of lung cancer, Onset Age: 67 Diabetes mellitus Father Hypertension Diabetes mellitus Mother Hypertension Thyroid activity decreased Pacemaker Sibling Family history of diabetes mellitus in first degree relative Diabetes mellitus Other Rheumatoid arthritis Other Family history of congestive heart failure Family history of coronary artery disease Social History Social History Smoking packs per day: 1 Smoking cigarettes per day: 20.0 Years smoked: 30 Smoking pack-years: 30.00 Smoking status: Current every day smoker Tobacco type: cigarettes Second hand tobacco smoke exposure: No Alcohol intake: current Drinks per week: 10 Substance use: never Substance use type: does not use Do You Feel Safe in your Home?: Yes Lack of Transportation: No Lack of Food: Never True Current Housing: I Have Housing Concerned About Future Housing: No Difficulty Paying Gas/Electric Bills: No Difficulty Paying for Meds: No Currently Unemployed: No Education: Bachelor's Degree Difficulty w/ Childcare or Family Care: No Living arrangements: with family Occupation/Education: occupation 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 Gender identity (if verbalized by the patient): Female Spiritual care concerns: No Exam 2 Narrative: GENERAL: [Well-appearing, well-nourished, and in no acute distress.] HEAD: [Normocephalic, atraumatic.] EYES: [PERRLA and EOMI.] ENT: Nares clear, no rhinorrhea or epistaxis. Mucous membranes moist. NECK: Supple. CHEST: [Clear to auscultation. No respiratory distress.] HEART: [Regular rate and rhythm]. No murmur heard. [Normal peripheral pulses.] ABDOMEN: [Soft, nondistended], [nontender], [No rigidity or guarding] EXTREMITIES: Normal range of motion. [No edema.] SKIN: Warm, dry, no rash. NEURO: [No focal deficits]. Alert and oriented [x3.] PSYCH: [Normal mood and affect.] Course Vital Signs Vital signs: Vital Signs Pulse Rate 99 02/17/25 23:04 Respiratory Rate 17 02/17/25 23:04 Blood Pressure 144/75 H 02/17/25 23:04 Pulse Oximetry 98 02/17/25 23:04 Oxygen Delivery Room Air 02/17/25 23:04 Pulse Rate 99 02/18/25 00:42 Respiratory Rate 17 02/17/25 23:04 Blood Pressure 144/75 H 02/17/25 23:04 Pulse Oximetry 98 02/17/25 23:04 Oxygen Delivery Room Air 02/17/25 23:04 MDM - Dizziness MDM Narrative Medical decision making narrative: 49-year-old female presenting to the ER for evaluation of dizziness and a headache. She describes a migraine type headache that began since this morning and tried taking Excedrin without any relief. Experiencing brain fog at this time as well as presyncope symptoms. Endorses mild nausea and epigastric discomfort 1/10 in intensity. Was otherwise in her normal state of health. Recent travel to [place]. Family members with GI symptoms during the trip. Patient herself is not any acute distress no overall well-appearing. Normal vital signs aside from some stable hypertension. No tachycardia, fever or hypoxia. Examination is reassuring with 2+ symmetric pulses, warm extremities, no cardiac murmurs, clear breath sounds throughout. Soft nontender nondistended abdomen. Will treat patient's headache as a potential migraine and evaluate laboratory values such as CBC, CMP, lipase, troponin. EKG was obtained. She was given Reglan, Toradol, fluid bolus and magnesium. 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 On re-evaluation patient had symptomatic improvement. Her vital signs are normal, laboratory assessments are unremarkable. No leukocytosis or anemia. No lipase elevation, negative troponin. LFTs around her baseline per review of the previous levels. No elevations. Patient is safe for discharge. Patient provided return precautions. Medical Records Attestation: I reviewed the patient's medical records. Lab Data Attestation: I reviewed the patient's lab results. 02/17/25 23:30 02/17/25 23:30 Labs: Lab Results 02/17/25 Range/Units 23:30 WBC 5.1 (4.5-10.0) K/mm3 RBC 4.18 L (4.2-5.4) M/mm3 Hgb 13.3 (12.0-15.0) g/dL Hct 40.7 (37.0-47.0) % MCV 97.4 (80-100) fl MCH 31.8 (26-34) pg MCHC 32.7 (32-36) g/dl RDW 14.6 H (11.5-14.5) % Plt Count 260 (150-375) k/mm3 MPV 8.9 (7.4-10.4) fl Immature Gran % (Auto) 0.2 (0-0.5) % Neut % (Auto) 57.4 (45.5-73.1) % Lymph % (Auto) 29.7 (18.3-44.2) % Greenlee % (Auto) 7.7 (2.6-8.5) % Eos % (Auto) 4.6 H (0-4.4) % Baso % (Auto) 0.4 (0.2-1.2) % Lymph # (Auto) 1.50 (0.9-3.2) K/mm3 Greenlee # (Auto) 0.4 (0.1-0.6) K/mm3 Eos # (Auto) 0.2 (0-0.3) K/mm3 Baso # (Auto) 0.0 (0.0-0.1) K/mm3 Abs Immat Gran (auto) 0.01 (0.00-0.031) K/mm3 Absolute Neuts (auto) 2.9 (1.3-6.7) K/mm3 Absolute Nucleated RBC 0.000 (0.0-0.012) K/mm3 Nucleated RBC % 0.0 (0.0-0.2) % Sodium 141 (137-145) mmol/L Potassium 3.6 (3.4-5.0) mmol/L Chloride 105 (98-107) mmol/L Carbon Dioxide 26 (22-30) mmol/L Anion Gap 10 (4-12) mmol/L BUN 21 H (7-17) mg/dL Creatinine 0.66 L (0.7-1.0) mg/dL Estim Creat Clear Calc 93 ml/min Estimated GFR > 60 (59 - ) Glucose 124 H (65-110) mg/dL Calcium 9.3 (8.4-10.2) mg/dL Total Bilirubin 0.7 (0.2-1.3) mg/dL AST 42 H (14-36) U/L ALT 48 H (6-35) U/L Alkaline Phosphatase 116 (38-126) U/L Troponin I < 0.012 (0.000-0.034) ng/mL Total Protein 8.0 (6.3-8.2) g/dL Albumin 4.7 (3.5-5.1) g/dL Lipase 247 (23-300) U/L Discharge Plan Discharge Clinical Impression: Migraine headache with aura Patient Disposition: Home, Self-Care Condition: Stable Instructions: Antibiotic Form, Migraine Headache (ED) Additional Instructions: Return with any new or emergent concerns. Patient Language: Finnish Prescriptions: No Action Mirena 20 mcg/24 hours (6 yrs) 52 mg Intrauterine Device 1 device INTRAUTERINE ONCE melatonin 1 mg tablet 1 mg PO QHS Rx Instructions: Says takes 5 to 10 mg. aspirin 325 mg tablet 325 mg PO DAILY pantoprazole [Protonix] 40 mg tablet,delayed release (DR/EC) 40 mg PO QAM calcium carbonate 500 mg capsule 500 mg PO DAILY ascorbic acid (vitamin C) 500 mg capsule 500 mg PO DAILY milk thistle 150 mg capsule 150 mg PO BID Patient Comments: Says takes only once a day. Rx Instructions: give with meal/snack vitamin E 400 unit Tablet 400 unit PO DAILY zinc 50 mg Tablet 50 mg PO DAILY magnesium 200 mg Tablet 200 mg PO DAILY cholecalciferol (vitamin D3) [Vitamin D3] 125 mcg (5,000 unit) Tablet 125 mcg PO DAILY cyanocobalamin (vitamin B-12) [Vitamin B-12] 5,000 mcg Tablet, Sublingual 5,000 mcg SUBLINGUAL DAILY ibuprofen 800 mg tablet 800 mg PO TID PRN (Reason: pain) Qty: 270 0RF hydroxyzine HCl 50 mg tablet See Rx Instructions .ROUTE .COMPLEX Qty: 30 2RF Dose Instruction: TAKE 1 TABLET BY MOUTH ONCE DAILY AT BEDTIME NEEDED FOR ITCHING Rx Instructions: TAKE 1 TABLET BY MOUTH ONCE DAILY NEEDED FOR ITCHING ondansetron HCl 4 mg tablet 4 mg PO Q8H PRN (Reason: nausea and vomiting) Qty: 20 0RF fluoxetine 40 mg capsule See Rx Instructions .ROUTE .COMPLEX Qty: 90 0RF Dose Instruction: TAKE 1 CAPSULE BY MOUTH ONCE DAILY WITH 20 MG CAPSULE Rx Instructions: TAKE 1 CAPSULE BY MOUTH ONCE DAILY WITH 20 MG CAPSULE sumatriptan succinate [Imitrex] 100 mg tablet 100 mg PO ONCE PRN (Reason: migraine headache) Qty: 10 2RF Rx Instructions: Can repeat after 2 hrs Se- 19 29 mg iron- 1 mg tablet See Rx Instructions .ROUTE .COMPLEX Qty: 30 5RF Dose Instruction: Take 1 tablet by mouth once daily Rx Instructions: Take 1 tablet by mouth once daily lorazepam [Ativan] 0.5 mg tablet 0.5 mg PO BID PRN (Reason: anxiety) Qty: 60 2RF fluoxetine 20 mg capsule See Rx Instructions .ROUTE .COMPLEX Qty: 90 0RF Dose Instruction: Take 1 capsule by mouth once daily Rx Instructions: Take 1 capsule by mouth once daily Follow-up/Referrals: Vishal Perez MD [Primary Care Provider] - Time of Disposition: 00:43
[2025-02-17] MEDS: METOCLOPRAMIDE HCL INJ 10 MG/2 ML VIAL IV PUSH (23:25)
[2025-02-17] MEDS: KETOROLAC 15 MG/ML VIAL (*BKC) IV PUSH (23:26)
[2025-02-17] MEDS: SODIUM CHLORIDE 0.9% IV 1,000 ML 999 ML IV CONT (23:27)
[2025-02-17 23:36] LABS: Basophils Percent Auto 0.4 % (0.2-1.2); Eosinophils Absolute Auto 0.2 K/mm3 (0-0.3); Eosinophils Percent Auto 4.6 % (0-4.4); Hematocrit 40.7 % (37.0-47.0); Hemoglobin 13.3 g/dL (12.0-15.0); Immature Granulocyte Absolute 0.01 K/mm3 (0.00-0.031); Immature Granulocyte Percent A 0.2 % (0-0.5); Lymphocytes Percent Auto 29.7 % (18.3-44.2); Mean Corpuscular HGB Conc 32.7 g/dl (32-36); Mean Corpuscular Hemoglobin 31.8 pg (26-34); Mean Corpuscular Volume 97.4 fl (80-100); Mean Platelet Volume 8.9 fl (7.4-10.4); Monocytes Absolute Auto 0.4 K/mm3 (0.1-0.6); Monocytes Percent Auto 7.7 % (2.6-8.5); Neutrophils Absolute Auto 2.9 K/mm3 (1.3-6.7); Neutrophils Percent Auto 57.4 % (45.5-73.1); Platelet Count Result 260 k/mm3 (150-375); Red Blood Count 4.18 M/mm3 (4.2-5.4); Red Cell Distribution Width 14.6 % (11.5-14.5); White Blood Count 5.1 K/mm3 (4.5-10.0)
[2025-02-17] MEDS: MAGNESIUM SULF 2 GM/WATER 50ML 2 GM/50 ML BAG IVPB (23:38)
[2025-02-17 23:48] LABS: Alanine Aminotransferase 48 U/L (6-35); Albumin Level 4.7 g/dL (3.5-5.1); Alkaline Phosphatase 116 U/L (38-126); Anion Gap 10 mmol/L (4-12); Aspartate Amino Transferase 42 U/L (14-36); Bilirubin,Total 0.7 mg/dL (0.2-1.3); Blood Urea Nitrogen 21 mg/dL (7-17); Calcium 9.3 mg/dL (8.4-10.2); Carbon Dioxide 26 mmol/L (22-30); Chloride 105 mmol/L (98-107); Estimated CRCL calculation 93 ml/min; Estimated Glomerular Filt Rate > 60; Glucose 124 mg/dL (65-110); Lipase 247 U/L (23-300); Potassium 3.6 mmol/L (3.4-5.0); Sodium 141 mmol/L (137-145)
[2025-02-18] LABS: Troponin I < 0.012 ng/mL (0.000-0.034)
[2025-02-18 00:42] VITALS: PULSE 99
== END 2025-02-18 00:49 | disposition home or self-care (01) ==
PROVIDERS: Emergency Provider Student in an Organized Health Care Education/Training Program; PCP Family Medicine
DX: G43.109 Migraine with aura, not intractable, without status migrainosus (principal); F17.210 Nicotine dependence, cigarettes, uncomplicated
CPT/HCPCS: 36415; 80053; 83690; 84484; 85025; 96365; 96375; 99284; J1885; J2765; J3475; J7030

== ENCOUNTER 2025-04-19 02:18 | Day surgery (SDC) | payer OTHER, SELFPAY ==
--- NOTE | 2025-04-13 15:48 | PC.NURSE ---
Report to the Outpatient Waiting Room, entrance under the green pavilion located off [facility], at time _130pm_ on date _[id number]_. Planned Procedure Time: _230pm_.? Time changes happen often and if your time is changed the preop area will call you the afternoon before. - You and your visitor will be asked to self-screen and do not enter if you have any COVID symptoms. Please call surgeon if you need to reschedule. - A mask is optional within the hospital at this time. No smoking, or chewing tobacco (or any form of nicotine). Ok breakfast and light lunch. Nothing to eat or drink after 1230. No chewing gum, candy or mints. Take only the following medications with a SIP of water on the morning of surgery: __Medications OK___ DO NOT STOP ANY OF YOUR OTHER PRESCRIPTION MEDICATIONS PRIOR TO SURGERY EXCEPT THE FOLLOWING Hold all vitamins and supplements for 3 days per anesthesiologist. Medications to discontinue per physician ___Patient is holding Aspirin, Ibuprofen and Naproxen per office instructions.___ Date to take last dose Please no make-up, nail turkmen, hairspray, perfume, deodorant, or body powder the day of surgery.? No jewelry (including any body piercings) or valuables the day of surgery, leave them at home.? Please take a shower or bath the night before, or the morning of, surgery with an antibacterial soap.? Wear comfortable, loose fitting clothing. - Jewelry must be removed prior to entering the operating room.? Rings and piercings that are not removed may be cut off. - The hospital will not accept responsibility for valuables.? - Please leave all valuables, including medications, at home the day of surgery. If you are going home after surgery, a licensed driver education road instructor must drive you home.? - NO public transportation without another adult if you receive anesthesia. - We recommend that an adult stay with you for 24 hours following discharge. - We also recommend that you do not drive, make important decision, drink alcoholic beverages, or take any drugs that were not prescribed by your health care provider for at least 24 hours after your discharge time. Follow any additional instructions given to you from your surgeon. Telephone instructions given to ___Kelly__and asked if any additional questions and then verbalized understanding. Patient advised to call surgeon office or pre surgery nurse liaison [phone] if any additional questions.
[2025-04-13 15:59] VITALS: BMI 25.2
--- NOTE | ~2025-04-19 | XR_ITS ---
XR fluoroscopy no charge 04/19/2025 16:26 Indication: Intra-articular steroid injection left sacroiliac joint. TECHNIQUE: Fluoroscopy used during Intra-articular steroid injection left sacroiliac joint. Performed by [Dilshad Medel MD] on 04/19/2025. 24 seconds of fluoroscopy time with 5 fluorosc opic images captured. FINDINGS: Correlate with procedure note. IMPRESSION: Fluoroscopy used during Intra-articular steroid injection left sacroiliac joint. . Reviewed, dictated and finalized at location A. IMPRESSION: Fluoroscopy used during Intra-articular steroid injection left sacr oiliac joint. .
--- OUTSIDE RECORDS SUMMARY | 2025-04-19 02:21 | XMS_ITS | Clinical Summary ---
Author Organization [facility] Address [address] [place] [address] Care Team Providers Care Ostomy Nurse Name Role Phone Unavailable Primary Care Provider Unavailabl e Source Comments [facility] [employer],non-owned Affiliates and Associated Physician Practices is amultiple site organization consisting of ambulatory clinics and hospital sitesin [place], [place], [place] and [place]. This disclosure is being madepursuant to the Care Everywhere program and may not contain all information available regarding this patient. 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
--- OUTSIDE RECORDS SUMMARY | 2025-04-19 02:21 | XMS_ITS | Encounter Summary ---
Author Organization [facility] Address [address] [place] [address] Care Team Providers Care Political Scientist Name Role Phone Unavailable Primary Care Provider Unavailabl e Encounter Details Date Type Department Care Team (Late st Contact Info) Description 01/10/2020 Lab Requisition [facility] [address] [place] [id number] Pj Ashton MD [address] [place] [address] Social History Tobacco Use Types Packs/Day Years Used Date Smoking Tobacco: Never Assessed Comments Unknown Sex and Gender Information Value Date Recorded Sex Assigned at Not on file Legal Sex Female 6:33 AM SHIFT PRODUCTION SUPERVISOR Gender Identity Not on file Sexual Orientation Not on file documented as of this encounter Plan of Treatment Not on file documented as of this encounter Procedures Procedure Name Priority Date/Time Associated Diagnosis Comments DERMATOPATHOLOGY Routine 01/07/2020 12:0 0 AM SHIFT PRODUCTION SUPERVISOR documented in this encounter Results * DERMATOPATHOLOGY (01/07/2020 12:00 AM SHIFT PRODUCTION SUPERVISOR) Case Report Dermatopathology Report Case: [id number] Authorizing Provider: Pj Ashton MD Collected: 01/07/2020 12:00 AM Ordering Location: [facility] Received: 01/10/2020 02:56 PM Pathologist: Emmy Hernández MD Specimen: Skin, right eyebrow 0 1:51 PM SHIFT PRODUCTION SUPERVISOR DERMATOPATHOLOGY LABORATORY Final Diagnosis Specimen A. 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 Check margins. Path # [id number]. 0 1:51 PM [facility] DERMATOPATHOLOGY LABORATORY Gross Description Specimen A: Received is one formalin filled container labeled with the patient's name and designated right eyebrow. The specimen consists of a shave biopsy measuring [id number], bisected. The margin is inked green. Jar 0. 0 1:51 PM [facility] DERMATOPATHOLOGY LABORATORY Microscopic Description Specimen A. SKIN, right eyebrow: Aggregates of basaloid (matrical) and shadow cells are surrounded by fibrosis and granulomatous inflammation. This lesion is present at the margin of the specimen. 0 1:51 PM [facility] DERMATOPATHOLOGY LABORATORY Disclaimer An external and internal positive and negative controls are appropriate for the histochemical, immunohistochemical and immunofluorescence stain(s) in this case (if any), except where stated explicitly. The performance characteristics of the stain(s) cited in this report were developed and its performance characteristic determined by the Dermatopathology Laboratory at [facility], directed by Dr. Diane Hernández. These tests need not be, and therefore are not, approved by the [place] Food and Drug Administration. The tests are used for clinical purposes. Billing Codes Specimen Charges Stain Charges 62376 1 0 1:51 PM SHIFT PRODUCTION SUPERVISOR DERMATOPATHOLOGY LABORATORY Embedded Images 0 1:51 PM [facility] DERMATOPATHOLOGY LABORATORY Pathology/Cytolog y TISSUE SPECIMEN FROM SKIN / Unknown 01/07/2020 01/10/2020 2:56 PM SHIFT PRODUCTION SUPERVISOR us Pj Ashton MD LAB - PATHOLOGY/CYTOLOGY ORDER JONATAN Final Result DERMATOPATHOLOGY LABORATORY [facility] - Department of Dermatology [facility], [address] [place] [address], [facility] [phone] documented in this encounter Visit Diagnoses Not on filedocumented in this encounter
--- OUTSIDE RECORDS SUMMARY | 2025-04-19 02:21 | XMS_ITS | Encounter Summary ---
Author Organization [facility] Address [address] [place] [address] Phone Care Team Providers Care High School Computer Science Teacher Name Role Phone Vishal Perez MD Primary Care Provider [phone] Encounter Details Date Type Department Care Team (Late st Contact Info) Description 02/20/2018 Orders Only [facility] ProviderRoss MD [address] [place] [id number] Social History Tobacco Use Types Packs/Day [...] on filedocumented in this encounter Care Teams High School Computer Science Teacher Relationship Specialty Start Date End Date Vishal Perez MD PCP - General Family Medicine 02/10/19 documented as of this encounter
--- OUTSIDE RECORDS SUMMARY | 2025-04-19 02:21 | XMS_ITS | Encounter Summary ---
Author Organization [facility] Address [address] [place] [address] Care Team Providers Care Manager News Name Role Phone Unavailable Primary Care Provider Unavailabl e Encounter Details Date Type Department Care Team (Late st Contact Info) Description 10/31/2020 Lab Requisition [facility] Derm[facility] Lab [address] [place] [address] Pj Ashton MD [address] [place] [address] Social History Tobacco Use Types Packs/Day Years Used Date Smoking Tobacco: Never Assessed Comments Unknown Sex and Gender Information Value Date Recorded Sex Assigned at Not on file Legal Sex Female 6:33 AM SUPERVISOR DISPLAY FABRICATION Gender Identity Not on file Sexual Orientation Not on file documented as of this encounter Plan of Treatment Not on file documented as of this encounter Procedures Procedure Name Priority Date/Time Associated Diagnosis Comments DERMATOPATHOLOGY Routine 10/27/2020 12:0 0 AM SUPERVISOR DISPLAY FABRICATION documented in this encounter Results * DERMATOPATHOLOGY (10/27/2020 12:00 AM SUPERVISOR DISPLAY FABRICATION) Case Report Dermatopathology Report Case: [id number] Authorizing Provider: Pj Ashton MD Collected: 10/27/2020 12:00 AM Ordering Location: [facility] Derm[facility] Lab Received: 10/31/2020 06:41 AM Pathologist: Cara Hooper MD Specimen: Skin, right mid back 0 4:20 PM SUPERVISOR DISPLAY FABRICATION DERMATOPATHOLOGY LABORATORY Final Diagnosis Specimen A. 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 Path#[id number] 0 4:20 PM SUPERVISOR DISPLAY FABRICATION DERMATOPATHOLOGY LABORATORY Gross Description Specimen A: Received is one formalin filled container labeled with the patient's name and designated right mid back. The specimen consists of a shave biopsy measuring 4x3x1 mm. Jar 0. 0 4:20 PM SUPERVISOR DISPLAY FABRICATION DERMATOPATHOLOGY LABORATORY Microscopic Description Specimen A. SKIN, right mid back: There are nests of cytologically bland melanocytes within the dermis that mature with depth. The epidermis is focally necrotic and covered with a scale-crust. There is fibrin at the base. 0 4:20 PM SUPERVISOR DISPLAY FABRICATION DERMATOPATHOLOGY LABORATORY Disclaimer An external and internal positive and negative controls are appropriate for the histochemical, immunohistochemical and immunofluorescence stain(s) in this case (if any), except where stated explicitly. The performance characteristics of the stain(s) cited in this report were developed and its performance characteristic determined by the Dermatopathology Laboratory at [facility], directed by Dr. Diane Hernández. These tests need not be, and therefore are not, approved by the [place] Food and Drug Administration. The tests are used for clinical purposes. Billing Codes Specimen Charges Stain Charges 71782 1 0 4:20 PM SUPERVISOR DISPLAY FABRICATION DERMATOPATHOLOGY LABORATORY Embedded Images 0 4:20 PM SUPERVISOR DISPLAY FABRICATION DERMATOPATHOLOGY LABORATORY Pathology/Cytolog y TISSUE SPECIMEN FROM SKIN / Unknown 10/27/2020 10/31/2020 6:41 AM SUPERVISOR DISPLAY FABRICATION Pj Ashton MD LAB - PATHOLOGY/CYTOLOGY ORDER JONATAN Final Result DERMATOPATHOLOGY LABORATORY [facility] - Department of Dermatology [address] [place] [address], [facility] [phone] documented in this encounter Visit Diagnoses Not on filedocumented in this encounter
--- OUTSIDE RECORDS SUMMARY | 2025-04-19 02:21 | XMS_ITS | Clinical Summary ---
Author Organization [facility] Address [address] [place] [phone] Care Team Providers Care Financial Sales Advisor Name Role Phone Vishal Perez MD Primary Care Provider [phone] Allergies Active Allergy Reactions Criticality Noted Date Comments Diphenhydramine Hives Medium 03/23/2019 Hives Medications SUMAtriptan (IMITREX) 100 mg tablet 3 9 Active [id number]-aczi fum-folic acid-dss (SE-FUNMI 19, WITH DOCUSATE,) 29 [...] 40 mg capsule 0 9 Active calcium-vits H3-M-W0-mineral s 166.75 mg- 166.75 unit capsule Rx: [...] 4:05 PM CDT Height 177.8 cm (5' 10) 06/08/2020 4:05 PM CDT Body Mass Index 30.85 06/08/2020 4:05 PM CDT Plan of Treatment Not on file Insurance [facility] Care Teams Financial Sales Advisor Relationship Specialty Start Date End Date Vishal Perez MD PCP - General Family Medicine 02/10/19
--- OUTSIDE RECORDS SUMMARY | 2025-04-19 02:21 | XMS_ITS | Referral Summary ---
Author Organization [facility] Address [address] [place] [phone] Care Team Providers Care Sign Maker Name Role Phone Vishal Perez MD Primary Care Provider + [phone] Allergies Active Allergy Reactions Criticality Noted Date Comments Diphenhydramine Hives Medium 03/23/2019 Hives Medications SUMAtriptan (IMITREX) 100 mg tablet 3 9 Active [id number] fum-folic acid-dss (SE-FUNMI 19, WITH DOCUSATE,) 29 [...] 40 mg capsule 0 9 Active calcium-vits O8-A-K9-mineral s 166.75 mg- 166.75 unit capsule Rx: [...] Plan of Treatment Not on file Insurance [facility] Address: [facility] [id number] [place] [phone] [facility] Address: [facility] [id number] [place] [phone] Care Teams Sign Maker Relationship Specialty Start Date End Date Vishal Perez MD PCP - General Family Medicine 02/10/19
--- NOTE | 2025-04-19 12:39 | WPDHPUPDATE1 ---
History and Physical Update Update Date/Time: 04/19/25 12:39 History and Physical has been reviewed, including an updated exam of the patient. There are NO changes in the patient's condition. Risks, benefits, and alternatives have been discussed and questions answered. Patient agrees to proceed with procedure.
--- NOTE | 2025-04-19 12:41 | P.OP_ITS ---
Procedure Note - Detailed Date of Procedure 04/19/25 Pre-op Diagnosis SI joint arthropathy, sacroiliitis Post-op Diagnosis Same Procedure Performed Left Sacroiliac Joint Steroid Injection under Fluoroscopic Guidance and with Contrast Control. Surgeon Dilshad Medel MD Commercial Loan Officer None Anesthesia Local Description of Procedure INFORMED CONSENT: Risks, benefits and alternatives to the procedure were discussed in detail with the patient who expressed explicit understanding and consent to proceed. Patient was informed verbally and in written form regarding the risks associated with the procedure including the low risk of serious infection, bleeding/bruising, allergic reaction, nerve or organ injury, paralysis, procedural site pain or discomfort, worsening pain and/or mobility, failure to treat and/or disfigurement. The patient expressed explicit understanding and consent to proceed. All materials required for the procedure were available prior to procedure start. Site and side were marked prior to procedure and confirmed in the presence of the patient. PROCEDURE IN DETAIL: The patient was brought to the procedural suite and placed in the prone position. Patient was made comfortable with use of pillows under the head/chest, hips and ankles. Skin overlying the injection site on the affected side(s) was prepared broadly with ChloraPrep applicator and draped in a sterile manner. Aseptic technique was used throughout. The left SI joint was identified in the AP view and contralateral oblique angulation with caudal tilt was utilized to optimize visualization of the inferior and medial joint line representing the posterior portion of the joint. Local anesthesia was established by infiltration with approximately 5 mL of 2% lidocaine via a 1-1/2 inch 27-gauge needle. A 22-gauge 3.5 inch Quincke spinal needle was advanced until the needle entered the inferior third of the joint space approximately 1cm cephalad from its most inferior point. In the AP view, 0.5 mL of Omnipaque 300 contrast medium was injected after negative aspiration for CSF, blood or other bodily fluid, showing appropriate intra-articular spread of contrast without evidence of intravascular, perineural or intrathecal placement. A 1.5 mL solution containing 6 mg of betamethasone in 0.5% PF bupivacaine was injected after repeat negative aspiration. Appropriate spread of the injectate was confirmed with washout of previous injected contrast. No parasthesias were elicited. Needle was removed completely intact without difficulty. Images were saved and documented in the patient chart. Patient's skin was cleansed and sterile bandage applied. The patient tolerated the procedure well. The patient was transported to the recovery area in stable condition where they were observed for an appropriate amount of time prior to discharge, without evidence of complication. The patient was instructed to avoid excessive activity for the next 48 hours, including climbing and frequent use of stairs. Showers only for 48 hours. They were instructed not to drive or operate heavy machinery for 24 hours. They are to monitor for severe headaches, fevers, chills, night sweats, erythema/swelling at the site or any other signs of infection, bleeding/bruising, bowel or bladder changes as well as new pain, weakness or numbness in the upper or lower extremity. Should they notice these changes, they are instructed to call our office immediately or report directly to the nearest Emergency Department if no answer or if after posted office hours. COMPLICATIONS: None COMMENTS: None CONTRAST WASTED: 29mL Omnipaque 300. Complications No immediate complications Condition Stable Disposition Same day [facility] Billing Surgery - Charge Forward: Surgery Billing
[2025-04-19 12:55] VITALS: BP 133/76; PULSE 90; TEMP 36.6; O2SAT 96; BMI 24.7
[2025-04-19 15:58] VITALS: BP 141/72; PULSE 84; RESP 14; O2SAT 99
[2025-04-19] MEDS: dexAMETHasone SOD PHOS INJ 10 MG/ML 1 ML VIAL IM (16:06)
[2025-04-19 16:07] VITALS: BP 163/81; PULSE 79; RESP 14; O2SAT 96
[2025-04-19] MEDS: LIDOCAINE 1% PF INJ 5 ML VIAL 10 ML INFILTRATE (16:07)
[2025-04-19] MEDS: BUPivacaine HCL 0.5% PF 30 ML VIAL 5 ML INFILTRATE (16:07)
[2025-04-19 16:13] VITALS: BP 144/83; PULSE 70; RESP 16; O2SAT 99
== END 2025-04-19 16:25 | disposition home or self-care (01) ==
PROVIDERS: PCP Family Medicine; Visit Provider Anesthesiology Pain Medicine
PROC: (CPT 27096; principal; 2025-04-19 13:15)
DX: M46.1 Sacroiliitis, not elsewhere classified (principal); M48.061 Spinal stenosis, lumbar region without neurogenic claudication; G89.29 Other chronic pain; F41.9 Anxiety disorder, unspecified; M12.30 Palindromic rheumatism, unspecified site; F17.210 Nicotine dependence, cigarettes, uncomplicated; Z98.890 Other specified postprocedural states; Z80.1 Family history of malignant neoplasm of trachea, bronchus and lung; Z82.49 Family history of ischemic heart disease and other diseases of the circulatory system
CPT/HCPCS: 27096; 99199; J1100; J2003; Q9965

== ENCOUNTER 2025-08-08 01:55 | Day surgery (SDC) | payer OTHER, SELFPAY ==
--- NOTE | 2025-07-27 14:15 | PC.NURSE ---
Report to the Outpatient Waiting Room, entrance under the green pavilion located off [facility], at time 1215__ on date _[phone]_. Planned Procedure Time: _115pm_.? Time changes happen often and if your time is changed the preop area will call you the afternoon before. - You and your visitor will be asked to self-screen and do not enter if you have any COVID symptoms. Please call surgeon if you need to reschedule. - A mask is optional within the hospital at this time. OK for light breakfast. Nothing to eat or drink after 1115am. No smoking, or chewing tobacco (or any form of nicotine). No chewing gum, candy or mints. Take only the following medications with a SIP of water on the morning of surgery: __Medications OK to take.___ DO NOT STOP ANY OF YOUR OTHER PRESCRIPTION MEDICATIONS PRIOR TO SURGERY EXCEPT THE FOLLOWING Hold all vitamins and supplements for 3 days per anesthesiologist. Medications to discontinue per physician Patient to call office for instructions regarding Aspirin and Ibuprofen. Date to take last dose Please no make-up, nail urdu, hairspray, perfume, deodorant, or body powder the day of surgery.? No jewelry (including any body piercings) or valuables the day of surgery, leave them at home.? Please take a shower or bath the night before, or the morning of, surgery with an antibacterial soap.? Wear comfortable, loose fitting clothing.? - Jewelry must be removed prior to entering the operating room.? Rings and piercings that are not removed may be cut off. - The hospital will not accept responsibility for valuables.? - Please leave all valuables, including medications, at home the day of surgery. If you are going home after surgery, a licensed route delivery driver must drive you home.? - NO public transportation without another adult if you receive anesthesia. - We recommend that an adult stay with you for 24 hours following discharge. - We also recommend that you do not drive, make important decision, drink alcoholic beverages, or take any drugs that were not prescribed by your health care provider for at least 24 hours after your discharge time. Follow any additional instructions given to you from your surgeon. Telephone instructions given to __Kelly___and asked if any additional questions and then verbalized understanding. Patient advised to call surgeon office or pre surgery nurse liaison [phone] if any additional questions.
[2025-07-27 14:48] VITALS: BMI 23.3
--- NOTE | ~2025-08-08 | XR_ITS ---
XR fluoroscopy no charge Indication:intra-articular steroid injection of the SI joint TECHNIQUE: Fluoroscopy used during intra-articular steroid injection of the SI joint performed by [Dilshad Medel MD] on 08/08/2025. 50 seconds of fluoroscopy with 7 fluoroscopic images captured. FINDINGS: Correlate with procedure note. IMPRESSION: Fluoroscopy used during intra-articular steroid injection of the SI joint. Reviewed, dictated and finalized at location O.
--- OUTSIDE RECORDS SUMMARY | 2025-08-08 01:58 | XMS_ITS | Encounter Summary ---
Author Organization [facility] Address [address] [facility] [place] [address] Care Team Providers Care Complaint Clerk Name Role Phone Unavailable Primary Care Provider Unavailabl e Encounter Details Date Type Department Care Team (Late st Contact Info) Description 01/10/2020 Lab Requisition [facility] DermPath Lab [address] [place] [address] Pj Ashton MD [address] [place] [address] Social History Tobacco Use Types Packs/Day Years Used Date Smoking Tobacco: Never Assessed Comments Unknown Sex and Gender Information Value Date Recorded Sex Assigned at Not on file Legal Sex Female 6:33 AM RENEWALS REPRESENTATIVE Gender Identity Not on file Sexual Orientation Not on file documented as of this encounter Plan of Treatment Not on file documented as of this encounter Procedures Procedure Name Priority Date/Time Associated Diagnosis Comments DERMATOPATHOLOGY Routine 01/07/2020 12:0 0 AM RENEWALS REPRESENTATIVE documented in this encounter Results * DERMATOPATHOLOGY (01/07/2020 12:00 AM RENEWALS REPRESENTATIVE) Case Report Dermatopathology Report Case: [id number] Authorizing Provider: Pj Ashton MD Collected: 01/07/2020 12:00 AM Ordering Location: [facility] DermPath Lab Received: 01/10/2020 02:56 PM Pathologist: Emmy Hernández MD Specimen: Skin, right eyebrow 0 1:51 PM RENEWALS REPRESENTATIVE DERMATOPATHOLOGY LABORATORY Final Diagnosis Specimen A. 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 Check margins. Path # [id number]. 0 1:51 PM RENEWALS REPRESENTATIVE DERMATOPATHOLOGY LABORATORY Gross Description Specimen A: Received is one formalin filled container labeled with the patient's name and designated right eyebrow. The specimen consists of a shave biopsy measuring [id number], bisected. The margin is inked green. Jar 0. 0 1:51 PM RENEWALS REPRESENTATIVE DERMATOPATHOLOGY LABORATORY Microscopic Description Specimen A. SKIN, right eyebrow: Aggregates of basaloid (matrical) and shadow cells are surrounded by fibrosis and granulomatous inflammation. This lesion is present at the margin of the specimen. 0 1:51 PM RENEWALS REPRESENTATIVE DERMATOPATHOLOGY LABORATORY Disclaimer An external and internal positive and negative controls are appropriate for the histochemical, immunohistochemical and immunofluorescence stain(s) in this case (if any), except where stated explicitly. The performance characteristics of the stain(s) cited in this report were developed and its performance characteristic determined by the Dermatopathology Laboratory at [facility], directed by Dr. Diane Hernández. These tests need not be, and therefore are not, approved by the [place] Food and Drug Administration. The tests are used for clinical purposes. Billing Codes Specimen Charges Stain Charges 22260 1 0 1:51 PM RENEWALS REPRESENTATIVE DERMATOPATHOLOGY LABORATORY Embedded Images 0 1:51 PM RENEWALS REPRESENTATIVE DERMATOPATHOLOGY LABORATORY Pathology/Cytolog y TISSUE SPECIMEN FROM SKIN / Unknown 01/07/2020 01/10/2020 2:56 PM RENEWALS REPRESENTATIVE us Pj Ashton MD LAB - PATHOLOGY/CYTOLOGY ORDER JONATAN Final Result DERMATOPATHOLOGY LABORATORY [facility] - Department of Dermatology [address] [place] [address], [address] [place] [address], [facility] [phone] documented in this encounter Visit Diagnoses Not on filedocumented in this encounter
--- OUTSIDE RECORDS SUMMARY | 2025-08-08 01:58 | XMS_ITS | Encounter Summary ---
Author Organization [facility] Address [address] [place] [address] Phone Care Team Providers Care Educational Programming Director Name Role Phone Vishal Perez MD Primary Care Provider [phone] Encounter Details Date Type Department Care Team (Late st Contact Info) Description 02/20/2018 Orders Only [facility] ProviderRoss MD [address] [place] [id number] Social History Tobacco Use Types Packs/Day [...] on filedocumented in this encounter Care Teams Educational Programming Director Relationship Specialty Start Date End Date Vishal Perez MD PCP - General Family Medicine 02/10/19 documented as of this encounter
--- OUTSIDE RECORDS SUMMARY | 2025-08-08 01:58 | XMS_ITS | Clinical Summary ---
Author Organization [facility] Address [address] [place] [phone] Care Team Providers Care Fast Food Restaurant Manager Name Role Phone Vishal Perez MD Primary Care Provider + [phone] Allergies Active Allergy Reactions Criticality Noted Date Comments Diphenhydramine Hives Medium 03/23/2019 Hives Medications SUMAtriptan (IMITREX) 100 mg tablet 3 9 Active [id number]-hccx fum-folic acid-dss (SE- 19, WITH DOCUSATE,) 29 [...] 40 mg capsule 0 9 Active calcium-vits X8-C-Y1-mineral s 166.75 mg- 166.75 unit capsule Rx: [...] Plan of Treatment Not on file Insurance [facility] Care Teams Fast Food Restaurant Manager Relationship Specialty Start Date End Date Vishal Perez MD PCP - General Family Medicine 02/10/19
--- OUTSIDE RECORDS SUMMARY | 2025-08-08 01:58 | XMS_ITS | Clinical Summary ---
Author Organization [facility] Address [address] [place] [address] Care Team Providers Care Audio Technician Name Role Phone Unavailable Primary Care [...] Screening 2016 COVID-19 Vaccine (2023-2 5 season) 2025 Meningococcal B Vaccine Aged Out No l onger eligible based on patient's age to complete this topic Meningococcal Vaccine Aged Out No angeline alan eligible based on patient's age to complete this topic Pneumococcal Vaccine: Pediat rics (0 to 5 Years) and At-Risk Patients (6 to 49 Years) Aged Out No longer eligible b ased on patient's age to complete this topic RSV Immunizations Under 20 Months Aged Out No longer eligible based on patient's age to complete this topic
--- OUTSIDE RECORDS SUMMARY | 2025-08-08 01:58 | XMS_ITS | Encounter Summary ---
Author Organization [facility] Address [address] [facility] [place] [address] Care Team Providers Care Dray Driver Name Role Phone Unavailable Primary Care Provider Unavailabl e Encounter Details Date Type Department Care Team (Late st Contact Info) Description 10/31/2020 Lab Requisition [facility] DermPath Lab [address] [facility] [address] [place] [address] Pj Ashton MD [address] [place] [address] Social History Tobacco Use Types Packs/Day Years Used Date Smoking Tobacco: Never Assessed Comments Unknown Sex and Gender Information Value Date Recorded Sex Assigned at Not on file Legal Sex Female 6:33 AM PERSONAL INJURY PARALEGAL Gender Identity Not on file Sexual Orientation Not on file documented as of this encounter Plan of Treatment Not on file documented as of this encounter Procedures Procedure Name Priority Date/Time Associated Diagnosis Comments DERMATOPATHOLOGY Routine 10/27/2020 12:0 0 AM PERSONAL INJURY PARALEGAL documented in this encounter Results * DERMATOPATHOLOGY (10/27/2020 12:00 AM PERSONAL INJURY PARALEGAL) Case Report Dermatopathology Report Case: [id number] Authorizing Provider: Pj Ashton MD Collected: 10/27/2020 12:00 AM Ordering Location: [facility] DermPath Lab Received: 10/31/2020 06:41 AM Pathologist: Cara Hooper MD Specimen: Skin, right mid back 0 4:20 PM PERSONAL INJURY PARALEGAL DERMATOPATHOLOGY LABORATORY Final Diagnosis Specimen A. 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 Path#[id number] 0 4:20 PM PERSONAL INJURY PARALEGAL DERMATOPATHOLOGY LABORATORY Gross Description Specimen A: Received is one formalin filled container labeled with the patient's name and designated right mid back. The specimen consists of a shave biopsy measuring 4x3x1 mm. Jar 0. 0 4:20 PM [facility] DERMATOPATHOLOGY LABORATORY Microscopic Description Specimen A. SKIN, right mid back: There are nests of cytologically bland melanocytes within the dermis that mature with depth. The epidermis is focally necrotic and covered with a scale-crust. There is fibrin at the base. 0 4:20 PM [facility] DERMATOPATHOLOGY LABORATORY Disclaimer An external and internal positive and negative controls are appropriate for the histochemical, immunohistochemical and immunofluorescence stain(s) in this case (if any), except where stated explicitly. The performance characteristics of the stain(s) cited in this report were developed and its performance characteristic determined by the Dermatopathology Laboratory at [facility], directed by Dr. Diane Hernández. These tests need not be, and therefore are not, approved by the [place] Food and Drug Administration. The tests are used for clinical purposes. Billing Codes Specimen Charges Stain Charges 72097 1 0 4:20 PM PERSONAL INJURY PARALEGAL DERMATOPATHOLOGY LABORATORY Embedded Images 0 4:20 PM [facility] DERMATOPATHOLOGY LABORATORY Pathology/Cytolog y TISSUE SPECIMEN FROM SKIN / Unknown 10/27/2020 10/31/2020 6:41 AM PERSONAL INJURY PARALEGAL us Pj Ashton MD LAB - PATHOLOGY/CYTOLOGY ORDER JONATAN Final Result DERMATOPATHOLOGY LABORATORY [facility] - Department of Dermatology [address] [place] [address], [facility] [phone] documented in this encounter Visit Diagnoses Not on filedocumented in this encounter
--- OUTSIDE RECORDS SUMMARY | 2025-08-08 01:58 | XMS_ITS | Clinical Summary ---
Author Organization [facility] Address [address] [place] [address] Care Team Providers Care Paint Line Supervisor Name Role Phone Unavailable Primary Care Provider Unavailabl e Source Comments [facility],non-owned Affiliates and Associated Physician Practices is amultiple site organization consisting of ambulatory clinics and hospital sitesin [place], [place], [place] and [place]. This disclosure is being madepursuant to the Care Everywhere program and may not contain all information available regarding this patient. Last updated 18.[facility] Social History Tobacco Use Types Packs/Day Years Used Date Smoking Tobacco: Never Assessed Comments Unknown Sex and Gender Information Value Date Recorded Sex Assigned at Not on file Legal Sex Female 6:33 AM MICROSOFT DYNAMICS DEVELOPER Gender Identity Not on file Sexual Orientation [...] - 19+ 3-dose series) 1995 DEPRESSION SCREENING 11/17/2024 COVID-19 VACCINE (1 - 2023-2 5 season) 2025 INFLUENZA VACCINE (#1) 2025 ZOSTER VACCINE (1 of 2) 2026 [...]
--- NOTE | 2025-08-08 11:42 | PM.HPGS ---
History of Present Illness History of Present Illness Consent: Risks, benefits, and alternatives have been discussed and questions answered. Patient agrees to proceed with procedure. Chief complaint: Sacroiliitis, SI joint arthropathy, chronic low ba Narrative: Lisa Ritter is a 49 year old female with chronic, recalcitrant and disabling bilateral lumbosacral back pain secondary to SI joint arthropathy, sacroiliitis with failure to respond to aggressive conservative measures including PT, oral and topical analgesics, opioid and nonopioid analgesics, rest, time and activity/behavioral modification over the past 1-2 years who presents for therapeutic intra-articular steroid injection of the bilateral SI joints under fluoroscopic guidance and with contrast control. Review of Systems Review of Systems: Patient denies any new infectious, allergic, cardiopulmonary, neurologic or constitutional symptoms or changes in activity tolerance or exercise capacity including new or progressive SOB/COLLADO, peripheral edema, productive cough, dysuria, nausea/vomiting, diarrhea, weight change, fevers/chills/night sweats, new or progressive neurologic deficit, cognitive or mood changes since last seen, except as documented in the HPI. All systems reviewed & are unremarkable except as noted in HPI and below PMFSH Past Medical History Medical History (Updated 06/15/25 @ 12:59 by Larry Frank, ANN) Sacroiliitis Lumbar spondylosis Low back pain Shift work sleep disorder Screening for lipid disorders Elevated glucose Broken rib Anxiety disorder, unspecified Migraine, unspecified, intractable, with status migrainosus Palindromic rheumatism Healthy female adult Surgical History Surgical History Hx of tonsillectomy No history of previous surgery Family History Family History Grandparent Cerebrovascular accident, Onset Age: 76 Family history of elevated blood lipids Family history of malignant neoplasm, Onset Age: 67 Family history of lung cancer, Onset Age: 67 Diabetes mellitus Father Hypertension Diabetes mellitus Mother Hypertension Thyroid activity decreased Pacemaker Sibling Family history of diabetes mellitus in first degree relative Diabetes mellitus Other Rheumatoid arthritis Other Family history of congestive heart failure Family history of coronary artery disease Social History Social History Smoking packs per day: 1 Smoking cigarettes per day: 20.0 Years smoked: 15 Smoking pack-years: 15.00 Smoking status: Current every day smoker Tobacco type: cigarettes Second hand tobacco smoke exposure: No Alcohol intake: current Drinks per week: 10 Substance use: never Substance use type: does not use Do You Feel Safe in your Home?: Yes Lack of Transportation: No Lack of Food: Never True Current Housing: I Have Housing Concerned About Future Housing: No Difficulty Paying Gas/Electric Bills: No Difficulty Paying for Meds: No Currently Unemployed: No Education: Bachelor's Degree Difficulty w/ Childcare or Family Care: No Living arrangements: with family Occupation/Education: occupation 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 Gender identity (if verbalized by the patient): Female Spiritual care concerns: No Meds Home Medications and Allergies Home Medications ?Medication ?Instructions ?Recorded ?Confirmed ?Type levonorgestrel (Mirena) 1 device intrauterine ONCE 12/11/20 07/27/25 History ibuprofen 800 mg tablet 800 mg PO TID PRN pain #270 tabs 04/09/22 07/27/25 Rx milk thistle 150 mg capsule 150 mg PO BID 04/01/24 07/27/25 History melatonin 1 mg tablet 1 mg PO QHS 08/10/24 07/27/25 History ondansetron HCl 4 mg tablet 4 mg PO Q8H PRN nausea and 09/22/24 07/27/25 Rx vomiting #20 tabs cholecalciferol (vitamin D3) 125 125 mcg PO DAILY 10/25/24 07/27/25 History mcg (5,000 unit) tablet (Vitamin D3) cyanocobalamin (vitamin B-12) 5,000 mcg sublingual DAILY 10/25/24 07/27/25 History 5,000 mcg sublingual tablet (Vitamin B-12) vitamin E 400 unit tablet 400 unit PO DAILY 10/25/24 07/27/25 History zinc 50 mg tablet 50 mg PO DAILY 10/25/24 07/27/25 History Se- 19 29 mg iron-1 mg tablet See Rx Instructions .Route 01/12/25 07/27/25 Rx (PNV 119-iron fum-folic acid) .COMPLEX #30 tabs aspirin 325 mg tablet 325 mg PO DAILY 02/22/25 07/27/25 History fluoxetine 20 mg capsule See Rx Instructions .Route 02/22/25 07/27/25 Rx .COMPLEX #90 caps lorazepam 0.5 mg tablet (Ativan) 0.5 mg PO BID PRN anxiety #180 tabs 02/22/25 07/27/25 Rx pantoprazole 40 mg tablet,delayed 40 mg PO QAM #90 tabs 02/22/25 07/27/25 Rx release (Protonix) ubrogepant 100 mg tablet (Ubrelvy) 100 mg PO ONCE 02/22/25 07/27/25 History ascorbic acid (vitamin C) 500 mg 1,000 mg PO DAILY 03/21/25 07/27/25 History capsule calcium carbonate 500 mg capsule 1,200 mg PO DAILY 03/21/25 07/27/25 History magnesium 200 mg tablet 250 mg PO DAILY 03/21/25 07/27/25 History sumatriptan succinate 100 mg 100 mg PO ONCE PRN migraine 05/27/25 07/27/25 Rx tablet (Imitrex) headache #10 tabs fluoxetine 40 mg capsule See Rx Instructions .Route 06/21/25 07/27/25 Rx .COMPLEX #90 caps hydroxyzine HCl 50 mg tablet See Rx Instructions .Route 07/27/25 07/27/25 Rx .COMPLEX #30 tabs Allergies Allergy/AdvReac Type Severity Reaction Status Date / Time chlorphentermine Allergy Unknown Unknown Verified 07/27/25 14:19 diphenhydramine Allergy Unknown Unknown Verified 07/27/25 14:19 phenylephrine Allergy Unknown Unknown Verified 07/27/25 14:19 phenylpropanolamine Allergy Unknown Unknown Verified 07/27/25 14:19 Exam Narrative: The patient's physical exam is essentially unchanged from prior examination on 06/15/2025. Specifically, patient demonstrates normal lung capacity, tidal volume and respiratory rate without wheezes, crackles, rales or rubs. Heart rate and rhythm are regular without murmurs, gallops or rubs. No JVD. Pulses 2+ globally without increasing peripheral edema. AAOx3 with no evidence of confusion, intoxication or altered mental state, NC/AT without acute distress or altered consciousness. Speech, cognition, mood, insight and judgment at baseline and within normal limits. Assessment and Plan Assessment and plan (1) Lumbosacral spondylosis: Code(s): M47.817 - Spondylosis without myelopathy or radiculopathy, lumbosacral region Status: Acute (2) Chronic low back pain: Code(s): M54.50 - Low back pain, unspecified; G89.29 - Other chronic pain Status: Acute (3) Arthropathy of sacroiliac joint: Code(s): M47.818 - Spondylosis without myelopathy or radiculopathy, sacral and sacrococcygeal region Status: Acute (4) Sacroiliitis: Code(s): M46.1 - Sacroiliitis, not elsewhere classified Status: Acute Plan Proceed as planned with therapeutic intra-articular steroid injection of the bilateral SI joints under fluoroscopic guidance and with contrast control.
--- NOTE | 2025-08-08 11:47 | P.OP_ITS ---
Procedure Note - Detailed Date of Procedure 08/08/25 Pre-op Diagnosis Sacroiliitis, SI joint arthropathy, chronic low ba Post-op Diagnosis Same Procedure Performed Bilateral Sacroiliac Joint Steroid Injection under Fluoroscopic Guidance and with Contrast Control. Surgeon Dilshad Medel MD Floors Buffer None Anesthesia Local Description of Procedure INFORMED CONSENT: Risks, benefits and alternatives to the procedure were discussed in detail with the patient who expressed explicit understanding and consent to proceed. Patient was informed verbally and in written form regarding the risks associated with the procedure including the low risk of serious infection, bleeding/bruising, allergic reaction, nerve or organ injury, paralysis, procedural site pain or discomfort, worsening pain and/or mobility, failure to treat and/or disfigurement. The patient expressed explicit u nderstanding and consent to proceed. All materials required for the procedure were available prior to procedure start. Site and side were marked prior to procedure and confirmed in the presence of the patient. PROCEDURE IN DETAIL: The patient was brought to the procedural suite and placed in the prone position. Patient was made comfortable with use of pillows under the head/chest, hips and ankles. Skin overlying the injection site on the affected side(s) was prepared broadly with ChloraPrep applicator and draped in a sterile manner. Aseptic technique was used throughout. The right SI joint was identified in the AP view and contralateral oblique angulation with caudal tilt was utilized to optimize visualization of the inferior and medial joint line representing the posterior portion of the joint. Local anesthesia was established by infiltration with approximately 5 mL of 2% lidocaine via a 1-1/2 inch 27-gauge needle. A 22-gauge 3.5 inch Quincke spinal needle was advanced until the needle entered the inferior third of the joint space approximately 1cm cephalad from its most inferior point. In the AP view, 0.5 mL of Omnipaque 300 contrast medium was injected after negative aspiration for CSF, blood or other bodily fluid, showing appropriate intra-articular spread of contrast without evidence of intravascular, perineural or intrathecal placement. A 1.5 mL solution containing 5 mg of dexamethasone in 0.5% PF bupivacaine was injected after repeat negative aspiration. Appropriate spread of the injectate was confirmed with washout of previous injected contrast. No parasthesias were elicited. Needle was removed completely intact without difficulty. The same exact procedure was repeated for all remaining levels on the contralateral side, left SI joint, modified as necessary to accommodate for the new target location with identical findings/results and no evidence of complication. Images were saved and documented in the patient chart. Patient's skin was cleansed and sterile bandage applied. The patient tolerated the procedure well. The patient was transported to the recovery area in stable condition where they were observed for an appropriate amount of time prior to discharge, without evidence of complication. The patient was instructed to avoid excessive activity for the next 48 hours, including climbing and frequent use of stairs. Showers only for 48 hours. They were instructed not to drive or operate heavy machinery for 24 hours. They are to monitor for severe headaches, fevers, chills, night sweats, erythema/swelling at the site or any other signs of infection, bleeding/bruising, bowel or bladder changes as well as new pain, weakness or numbness in the upper or lower extremity. Should they notice these changes, they are instructed to call our office immediately or report directly to the nearest Emergency Department if no answer or if after posted office hours. COMPLICATIONS: None COMMENTS: None CONTRAST WASTED: 29mL Omnipaque 300. Complications No immediate complications Condition Stable Disposition Same day [facility] Billing Surgery - Charge Forward: Surgery Billing
--- NOTE | 2025-08-08 11:51 | WPDHPUPDATE1 ---
History and Physical Update Update Date/Time: 08/08/25 11:51 History and Physical has been reviewed, including an updated exam of the patient. There are NO changes in the patient's condition. Risks, benefits, and alternatives have been discussed and questions answered. Patient agrees to proceed with procedure.
[2025-08-08 12:30] VITALS: BP 160/92; PULSE 93; RESP 14; TEMP 36.8; O2SAT 100; BMI 23.7
[2025-08-08] MEDS: BUPivacaine HCL 0.25% PF 10 ML VIAL INFILTRATE (12:55)
[2025-08-08 12:56] VITALS: BP 160/88; PULSE 86; RESP 16; O2SAT 98
[2025-08-08] MEDS: dexAMETHasone SOD PHOS INJ 10 MG/ML 1 ML VIAL IV PUSH (12:56)
[2025-08-08 13:04] VITALS: BP 155/78; PULSE 87; RESP 18; O2SAT 98
[2025-08-08 13:06] VITALS: BP 152/86; PULSE 82; RESP 16; O2SAT 100
== END 2025-08-08 13:20 | disposition home or self-care (01) ==
PROVIDERS: PCP Family Medicine; Visit Provider Anesthesiology Pain Medicine
PROC: (CPT 27096; principal; 2025-08-08 13:15)
DX: M46.1 Sacroiliitis, not elsewhere classified (principal); M54.50 Low back pain, unspecified; G89.29 Other chronic pain; F17.210 Nicotine dependence, cigarettes, uncomplicated
CPT/HCPCS: 27096; 99199; J1100; Q9965

== ENCOUNTER 2025-10-17 07:46 | Outpatient (CLI) | payer OTHER, SELFPAY ==
--- NOTE | ~2025-10-17 | MM_ITS ---
EXAMINATION: MM screening latanya BI w penelope HISTORY: Screening TECHNIQUE: Craniocaudal and mediolateral oblique 3-D tomosynthesis images were obtained and synthetic 2-D images were generated. CAD analysis was submitted and interpreted. COMPARISON: Comparison to multiple prior studies sequentially, with oldest reviewed study dated 12/01/2018. BREAST PARENCHYMAL COMPOSITION: Not dense: There are scattered areas of fibroglandular density. FINDINGS: The left breast is stable without evidence for malignancy. There are developing calcifications in the lateral aspect of the right breast at approximately 9:00, anterior-middle depth. There is a focal asymmetry laterally in the right breast on CC view without corresponding abnormality on MLO view. IMPRESSION: 1. Developing clustered indeterminate calcifications mid outer aspect of the right breast at approximately 9:00. New focal asymmetry laterally in the right breast on CC view, middle-posterior depth. 2. Additional mammographic views and possible breast ultrasound are recommended. BI-RADS Category 0: Incomplete: Needs additional imaging evaluation. Reviewed, dictated and finalized at location I. ICAL OPERATIONS MANAGER IMPRESSION: 1. Developing clustered indeterminate calcifications mid outer aspect of the ri ght breast at approximately 9:00. New focal asymmetry laterally in the right br east on CC view, middle-posterior depth. 2. Additional mammographic views and possible breast ultrasound are recommended . BI-RADS Category 0: Incomplete: Needs additional imaging evaluation.
--- OUTSIDE RECORDS SUMMARY | 2025-10-17 07:49 | XMS_ITS | Encounter Summary ---
Author Organization [facility] Address [address] [place] [address] Care Team Providers Care Qa Developer Name Role Phone Unavailable Primary Care Provider Unavailabl e Encounter Details Date Type Department Care Team (Late st Contact Info) Description 10/31/2020 Lab Requisition [facility] [address] [place] [address] Pj Ashton MD [address] [place] [address] Social History Tobacco Use Types Packs/Day Years Used Date Smoking Tobacco: Never Assessed Comments Unknown Sex and Gender Information Value Date Recorded Sex Assigned at Not on file Legal Sex Female 6:33 AM VIROLOGIST Gender Identity Not on file Sexual Orientation Not on file documented as of this encounter Plan of Treatment Not on file documented as of this encounter Procedures Procedure Name Priority Date/Time Associated Diagnosis Comments DERMATOPATHOLOGY Routine 10/27/2020 12:0 0 AM VIROLOGIST documented in this encounter Results * DERMATOPATHOLOGY (10/27/2020 12:00 AM VIROLOGIST) Case Report Dermatopathology Report Case: [id number] Authorizing Provider: Pj Ashtno MD Collected: 10/27/2020 12:00 AM Ordering Location: [facility] Received: 10/31/2020 06:41 AM Pathologist: Cara Hooper MD Specimen: Skin, right mid back 0 4:20 PM VIROLOGIST DERMATOPATHOLOGY LABORATORY Final Diagnosis Specimen A. SKIN, right mid back: INTRADERMAL MELANOCYTIC NEVUS (D22.5) EPIDERMAL NECROSIS SUGGESTIVE OF EXCORIATION (L98.499) 0 4:20 PM VIROLOGIST DERMATOPATHOLOGY LABORATORY at 1620 VIROLOGIST Clinical History Irr nevus vs mm. Path#[id number] 0 4:20 PM VIROLOGIST DERMATOPATHOLOGY LABORATORY Gross Description Specimen A: Received is one formalin filled container labeled with the patient's name and designated right mid back. The specimen consists of a shave biopsy measuring 4x3x1 mm. Jar 0. 0 4:[address] [facility] DERMATOPATHOLOGY LABORATORY Microscopic Description Specimen A. SKIN, right mid back: There are nests of cytologically bland melanocytes within the dermis that mature with depth. The epidermis is focally necrotic and covered with a scale-crust. There is fibrin at the base. 0 4:[address] [facility] DERMATOPATHOLOGY LABORATORY Disclaimer An external and internal positive and negative controls are appropriate for the histochemical, immunohistochemical and immunofluorescence stain(s) in this case (if any), except where stated explicitly. The performance characteristics of the stain(s) cited in this report were developed and its performance characteristic determined by the Dermatopathology Laboratory at [facility], directed by Dr. Diane Hernández. These tests need not be, and therefore are not, approved by the [place] Food and Drug Administration. The tests are used for clinical purposes. Billing Codes Specimen Charges Stain Charges 74310 1 0 4:20 PM VIROLOGIST DERMATOPATHOLOGY LABORATORY Embedded Images 0 4:[address] [facility] DERMATOPATHOLOGY LABORATORY Pathology/Cytolog y TISSUE SPECIMEN FROM SKIN / Unknown 10/27/2020 10/31/2020 6:41 AM VIROLOGIST us Pj Ashton MD LAB - PATHOLOGY/CYTOLOGY ORDER JONATAN Final Result DERMATOPATHOLOGY LABORATORY [facility] - Department of Dermatology [address] [place] [address], [facility] [phone] documented in this encounter Visit Diagnoses Not on filedocumented in this encounter
--- OUTSIDE RECORDS SUMMARY | 2025-10-17 07:49 | XMS_ITS | Clinical Summary ---
Author Organization [facility] Address [address] [place] [address] Care Team Providers Care Medical Imaging Technologist Name Role Phone Unavailable Primary Care Provider [...] HPV 2006 Mammogram Screening 2016 COVID-19 Vaccine (2024-2 6 season) 2025 Influenza Adult (#1) 2025 Hepatitis A Vaccines Aged Out No long er eligible based on patient's age to complete this topic Meningococcal B Vaccine Aged Out No l [...]
--- OUTSIDE RECORDS SUMMARY | 2025-10-17 07:49 | XMS_ITS | Encounter Summary ---
Author Organization [facility] Address [address] [place] [address] Phone Care Team Providers Care Protective Officer Name Role Phone Vishal Perez MD Primary Care Provider [phone] Encounter Details Date Type Department Care Team (Late st Contact Info) Description 02/20/2018 Orders Only [facility] ProviderRoss MD [address] [place] [id number] Social History Tobacco Use Types Packs/Day [...] on filedocumented in this encounter Care Teams Protective Officer Relationship Specialty Start Date End Date Vishal Perez MD PCP - General Family Medicine 02/10/19 documented as of this encounter
--- OUTSIDE RECORDS SUMMARY | 2025-10-17 07:49 | XMS_ITS | Clinical Summary ---
Author Organization [facility] Address [address] [place] [address] Care Team Providers Care Health Information Specialist Name Role Phone Unavailable Primary Care Provider Unavailabl e Source Comments [facility] [employer],non-owned Affiliates and Associated Physician Practices is amultiple site organization consisting of ambulatory clinics and hospital sitesin [place], [place], [place] and [place]. This disclosure is being madepursuant to the Care Everywhere program and may not contain all information available regarding this patient. 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
--- OUTSIDE RECORDS SUMMARY | 2025-10-17 07:49 | XMS_ITS | Clinical Summary ---
Author Organization [facility] Address [address] [place] [id number] Care Team Providers Care Sample Color Maker Name Role Phone Vishal Perez MD Primary Care Provider + [phone] Allergies Active Allergy Reactions Criticality Noted Date Comments Diphenhydramine Hives Medium 03/23/2019 Hives Medications SUMAtriptan (IMITREX) 100 mg tablet 3 9 Active ASU606-nazy fum-folic acid-dss (SE- 19, WITH DOCUSATE,) 29 [...] 40 mg capsule 0 9 Active calcium-vits M2-C-F2-mineral s 166.75 mg- 166.75 unit capsule Rx: [...] Plan of Treatment Not on file Insurance [facility] H[facility]/PPO Address: [place] [address] [facility] H[facility]/PPO Address: [place] [address] Care Teams Sample Color Maker Relationship Specialty Start Date End Date Vishal Perez MD PCP - General Family Medicine 02/10/19
--- OUTSIDE RECORDS SUMMARY | 2025-10-17 07:49 | XMS_ITS | Encounter Summary ---
Author Organization [facility] Address [address] [place] [address] Care Team Providers Care City Superintendent Of Schools Name Role Phone Unavailable Primary Care Provider Unavailabl e Encounter Details Date Type Department Care Team (Late st Contact Info) Description 01/10/2020 Lab Requisition [facility] Lab [address] [place] [address] Pj Ashton MD [address] [place] [address] Social History Tobacco Use Types Packs/Day Years Used Date Smoking Tobacco: Never Assessed Comments Unknown Sex and Gender Information Value Date Recorded Sex Assigned at Not on file Legal Sex Female 6:33 AM TOE POUNDER Gender Identity Not on file Sexual Orientation Not on file documented as of this encounter Plan of Treatment Not on file documented as of this encounter Procedures Procedure Name Priority Date/Time Associated Diagnosis Comments DERMATOPATHOLOGY Routine 01/07/2020 12:0 0 AM TOE POUNDER documented in this encounter Results * DERMATOPATHOLOGY (01/07/2020 12:00 AM TOE POUNDER) Case Report Dermatopathology Report Case: [id number] Authorizing Provider: Pj Ashton MD Collected: 01/07/2020 12:00 AM Ordering Location: [facility] Received: 01/10/2020 02:56 PM Pathologist: Emmy Hernández MD Specimen: Skin, right eyebrow 0 1:51 PM TOE POUNDER DERMATOPATHOLOGY LABORATORY Final Diagnosis Specimen A. 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 Check margins. Path # [id number] 0 1:51 PM TOE POUNDER DERMATOPATHOLOGY LABORATORY Gross Description Specimen A: Received is one formalin filled container labeled with the patient's name and designated right eyebrow. The specimen consists of a shave biopsy measuring 12t1x5rf, bisected. The margin is inked green. Jar 0. 0 1:51 PM TOE POUNDER DERMATOPATHOLOGY LABORATORY Microscopic Description Specimen A. SKIN, right eyebrow: Aggregates of basaloid (matrical) and shadow cells are surrounded by fibrosis and granulomatous inflammation. This lesion is present at the margin of the specimen. 0 1:51 PM TOE POUNDER DERMATOPATHOLOGY LABORATORY Disclaimer An external and internal positive and negative controls are appropriate for the histochemical, immunohistochemical and immunofluorescence stain(s) in this case (if any), except where stated explicitly. The performance characteristics of the stain(s) cited in this report were developed and its performance characteristic determined by the Dermatopathology Laboratory at [facility], directed by Dr. Diane Hernández. These tests need not be, and therefore are not, approved by the [place] Food and Drug Administration. The tests are used for clinical purposes. Billing Codes Specimen Charges Stain Charges 61121 1 0 1:51 PM TOE POUNDER DERMATOPATHOLOGY LABORATORY Embedded Images 0 1:51 PM TOE POUNDER DERMATOPATHOLOGY LABORATORY Pathology/Cytolog y TISSUE SPECIMEN FROM SKIN / Unknown 01/07/2020 01/10/2020 2:56 PM TOE POUNDER us Pj Ashton MD LAB - PATHOLOGY/CYTOLOGY ORDER JONATAN Final Result DERMATOPATHOLOGY LABORATORY [facility] - Department of Dermatology [address] [place] [address], [address] [place] [address], [facility] [phone] documented in this encounter Visit Diagnoses Not on filedocumented in this encounter
== END 2025-10-17 07:47 | disposition home or self-care (01) ==
PROVIDERS: PCP Family Medicine; Visit Provider Family Medicine
DX: Z12.31 Encounter for screening mammogram for malignant neoplasm of breast (principal); R92.8 Other abnormal and inconclusive findings on diagnostic imaging of breast
CPT/HCPCS: 77063; 77067

== ENCOUNTER 2025-11-08 07:24 | Day surgery (SDC) | payer OTHER, SELFPAY ==
[2025-11-04 08:42] VITALS: BMI 23.3
--- NOTE | ~2025-11-08 | XR_ITS ---
XR fluoroscopy no charge Indication:bilateral intra-articular steroid injection in the SI joints. TECHNIQUE: Fluoroscopy used during bilateral intra-articular steroid injection in the SI joints. performed by [Dilshad Medel MD] on 11/08/2025. 49 seconds of fluoroscopy with 7 fluoroscopic images captured. FINDINGS: Correlate with procedure note. IMPRESSION: Fluoroscopy used during bilateral intra-articular steroid injection in the SI joints.. Reviewed, dictated and finalized at location O. RNS PROCESSOR
--- OUTSIDE RECORDS SUMMARY | 2025-11-08 07:29 | XMS_ITS | Clinical Summary ---
Author Organization [facility] Address [address] [place] [address] Care Team Providers Care Angiographer Name Role Phone Unavailable Primary Care Provider Unavailabl e Source Comments [facility] [employer],non-owned Affiliates and Associated Physician Practices is amultiple site organization consisting of ambulatory clinics and hospital sitesin [place], [place], [place] and [place]. This disclosure is being madepursuant to the Care Everywhere program and may not contain all information available regarding this patient. Last updated 18.[facility] [employer] Social History Tobacco Use Types Packs/Day Years Used Date Smoking Tobacco: Never Assessed Comments Unknown Sex and Gender Information Value Date Recorded Sex Assigned at Not on file Legal Sex Female 6:33 AM RENT AND MISCELLANEOUS REMITTANCE CLERK Gender Identity Not on file Sexual Orientation [...]
--- OUTSIDE RECORDS SUMMARY | 2025-11-08 07:29 | XMS_ITS | Encounter Summary ---
Author Organization [facility] Address [address] [place] [address] Phone Care Team Providers Care Interpreter Deaf Name Role Phone Vishal Perez MD Primary Care Provider [phone] Encounter Details Date Type Department Care Team (Late st Contact Info) Description 02/20/2018 Orders Only [facility] ProviderRoss MD [address] [place] [id number] Social History Tobacco Use Types Packs/Day [...] on filedocumented in this encounter Care Teams Interpreter Deaf Relationship Specialty Start Date End Date Vishal Perez MD PCP - General Family Medicine 02/10/19 documented as of this encounter
--- OUTSIDE RECORDS SUMMARY | 2025-11-08 07:29 | XMS_ITS | Clinical Summary ---
Author Organization [facility] Address [address] [place] [id number] Care Team Providers Care Business Rules Developer Name Role Phone Vishal Perez MD Primary Care Provider + [phone] Allergies Active Allergy Reactions Criticality Noted Date Comments Diphenhydramine Hives Medium 03/23/2019 Hives Medications SUMAtriptan (IMITREX) 100 mg tablet 3 9 Active KUX273-ydte fum-folic acid-dss (SE-FUNMI 19, WITH DOCUSATE,) 29 [...] 40 mg capsule 0 9 Active calcium-vits H3-G-G5-mineral s 166.75 mg- 166.75 unit capsule Rx: [...] Plan of Treatment Not on file Insurance [facility] HMO/PPO Address: [place] [address] [facility] H[facility]/PPO Address: [place] [address] Care Teams Business Rules Developer Relationship Specialty Start Date End Date Vishal Perez MD PCP - General Family Medicine 02/10/19
--- OUTSIDE RECORDS SUMMARY | 2025-11-08 07:29 | XMS_ITS | Clinical Summary ---
Author Organization [facility] Address [address] [place] [address] Care Team Providers Care Loading And Unloading Supervisor Name Role Phone Unavailable Primary Care [...]
--- OUTSIDE RECORDS SUMMARY | 2025-11-08 07:29 | XMS_ITS | Encounter Summary ---
Author Organization [facility] Address [address] [place] [address] Care Team Providers Care Lumber Sticker Name Role Phone Unavailable Primary Care Provider Unavailabl e Encounter Details Date Type Department Care Team (Late st Contact Info) Description 10/31/2020 Lab Requisition [facility] DermPath Lab [address] [place] [address] Pj Ashton MD [address] [place] [address] Social History Tobacco Use Types Packs/Day Years Used Date Smoking Tobacco: Never Assessed Comments Unknown Sex and Gender Information Value Date Recorded Sex Assigned at Not on file Legal Sex Female 6:33 AM EXTENSION FORESTER Gender Identity Not on file Sexual Orientation Not on file documented as of this encounter Plan of Treatment Not on file documented as of this encounter Procedures Procedure Name Priority Date/Time Associated Diagnosis Comments DERMATOPATHOLOGY Routine 10/27/2020 12:0 0 AM EXTENSION FORESTER documented in this encounter Results * DERMATOPATHOLOGY (10/27/2020 12:00 AM EXTENSION FORESTER) Case Report Dermatopathology Report Case: [id number] Authorizing Provider: Pj Ashton MD Collected: 10/27/2020 12:00 AM Ordering Location: [facility] Received: 10/31/2020 06:41 AM Pathologist: Cara Hooper MD Specimen: Skin, right mid back 0 4:20 PM EXTENSION FORESTER DERMATOPATHOLOGY LABORATORY Final Diagnosis Specimen A. 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 Path#[id number] 0 4:20 PM EXTENSION FORESTER DERMATOPATHOLOGY LABORATORY Gross Description Specimen A: Received is one formalin filled container labeled with the patient's name and designated right mid back. The specimen consists of a shave biopsy measuring 4x3x1 mm. Jar 0. 0 4:20 PM [facility] DERMATOPATHOLOGY LABORATORY Microscopic Description Specimen A. SKIN, right mid back: There are nests of cytologically bland melanocytes within the dermis that mature with depth. The epidermis is focally necrotic and covered with a scale-crust. There is fibrin at the base. 0 4:20 PM [facility] DERMATOPATHOLOGY LABORATORY Disclaimer An external and internal positive and negative controls are appropriate for the histochemical, immunohistochemical and immunofluorescence stain(s) in this case (if any), except where stated explicitly. The performance characteristics of the stain(s) cited in this report were developed and its performance characteristic determined by the Dermatopathology Laboratory at [facility], directed by Dr. Diane Hernández. These tests need not be, and therefore are not, approved by the [place] Food and Drug Administration. The tests are used for clinical purposes. Billing Codes Specimen Charges Stain Charges 66852 1 0 4:20 PM EXTENSION FORESTER DERMATOPATHOLOGY LABORATORY Embedded Images 0 4:20 PM [facility] DERMATOPATHOLOGY LABORATORY Pathology/Cytolog y TISSUE SPECIMEN FROM SKIN / Unknown 10/27/2020 10/31/2020 6:41 AM EXTENSION FORESTER us Pj Ashton MD LAB - PATHOLOGY/CYTOLOGY ORDER JONATAN Final Result DERMATOPATHOLOGY LABORATORY [facility] - Department of Dermatology [address] [place] [address], [facility] [phone] documented in this encounter Visit Diagnoses Not on filedocumented in this encounter
--- OUTSIDE RECORDS SUMMARY | 2025-11-08 07:29 | XMS_ITS | Encounter Summary ---
Author Organization [facility] Address [address] [place] [address] Care Team Providers Care Director Of Group Counseling Program Name Role Phone Unavailable Primary Care Provider Unavailabl e Encounter Details Date Type Department Care Team (Late st Contact Info) Description 01/10/2020 Lab Requisition [facility] DermPath Lab [address] [place] [address] Pj Ashton MD [address] [place] [address] Social History Tobacco Use Types Packs/Day Years Used Date Smoking Tobacco: Never Assessed Comments Unknown Sex and Gender Information Value Date Recorded Sex Assigned at Not on file Legal Sex Female 6:33 AM BANK CONSULTANT Gender Identity Not on file Sexual Orientation Not on file documented as of this encounter Plan of Treatment Not on file documented as of this encounter Procedures Procedure Name Priority Date/Time Associated Diagnosis Comments DERMATOPATHOLOGY Routine 01/07/2020 12:0 0 AM BANK CONSULTANT documented in this encounter Results * DERMATOPATHOLOGY (01/07/2020 12:00 AM BANK CONSULTANT) Case Report Dermatopathology Report Case: [id number] Authorizing Provider: Pj Ashton MD Collected: 01/07/2020 12:00 AM Ordering Location: [facility] DermPath Lab Received: 01/10/2020 02:56 PM Pathologist: Emmy Hernández MD Specimen: Skin, right eyebrow 0 1:51 PM BANK CONSULTANT DERMATOPATHOLOGY LABORATORY Final Diagnosis Specimen A. 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 Check margins. Path # [id number] 0 1:51 PM BANK CONSULTANT DERMATOPATHOLOGY LABORATORY Gross Description Specimen A: Received is one formalin filled container labeled with the patient's name and designated right eyebrow. The specimen consists of a shave biopsy measuring 13d1h5ya, bisected. The margin is inked green. Jar 0. 0 1:51 PM BANK CONSULTANT DERMATOPATHOLOGY LABORATORY Microscopic Description Specimen A. SKIN, right eyebrow: Aggregates of basaloid (matrical) and shadow cells are surrounded by fibrosis and granulomatous inflammation. This lesion is present at the margin of the specimen. 0 1:51 PM BANK CONSULTANT DERMATOPATHOLOGY LABORATORY Disclaimer An external and internal positive and negative controls are appropriate for the histochemical, immunohistochemical and immunofluorescence stain(s) in this case (if any), except where stated explicitly. The performance characteristics of the stain(s) cited in this report were developed and its performance characteristic determined by the Dermatopathology Laboratory at [facility], directed by Dr. Diane Hernández. These tests need not be, and therefore are not, approved by the [place] Food and Drug Administration. The tests are used for clinical purposes. Billing Codes Specimen Charges Stain Charges 94055 1 0 1:51 PM BANK CONSULTANT DERMATOPATHOLOGY LABORATORY Embedded Images 0 1:51 PM BANK CONSULTANT DERMATOPATHOLOGY LABORATORY Pathology/Cytolog y TISSUE SPECIMEN FROM SKIN / Unknown 01/07/2020 01/10/2020 2:56 PM BANK CONSULTANT us Pj Ashton MD LAB - PATHOLOGY/CYTOLOGY ORDER JONATAN Final Result DERMATOPATHOLOGY LABORATORY [facility] - Department of Dermatology [address] [place] [address], [address] [place] [address], [facility] [phone] documented in this encounter Visit Diagnoses Not on filedocumented in this encounter
[2025-11-08 08:08] VITALS: BP 143/90; PULSE 76; RESP 16; TEMP 36.6; O2SAT 100
--- NOTE | 2025-11-08 08:09 | WPDHPUPDATE1 ---
History and Physical Update Update Date/Time: 11/08/25 08:09 History and Physical has been reviewed, including an updated exam of the patient. There are NO changes in the patient's condition. Risks, benefits, and alternatives have been discussed and questions answered. Patient agrees to proceed with procedure.
[2025-11-08 08:10] VITALS: BMI 25.3
--- NOTE | 2025-11-08 08:10 | P.OP_ITS ---
Procedure Note - Detailed Date of Procedure 11/08/25 Pre-op Diagnosis Sacroiliitis Post-op Diagnosis Same Procedure Performed Bilateral Sacroiliac Joint Steroid Injection under Fluoroscopic Guidance and with Contrast Control. Surgeon Dilshad Medel MD Mounter Clarinets None Anesthesia Local Description of Procedure INFORMED CONSENT: Risks, benefits and alternatives to the procedure were discussed in detail with the patient who expressed explicit understanding and consent to proceed. Patient was informed verbally and in written form regarding the risks associated with the procedure including the low risk of serious infection, bleeding/bruising, allergic reaction, nerve or organ injury, paralysis, procedural site pain or discomfort, worsening pain and/or mobility, failure to treat and/or disfigurement. The patient expressed explicit understanding and consent to proceed. All materials required for the procedure were available prior to procedure start. Site and side were marked prior to procedure and confirmed in the presence of the patient. PROCEDURE IN DETAIL: The patient was brought to the procedural suite and placed in the prone position. Patient was made comfortable with use of pillows under the head/chest, hips and ankles. Skin overlying the injection site on the affected side(s) was prepared broadly with ChloraPrep applicator and draped in a sterile manner. Aseptic technique was used throughout. The right SI joint was identified in the AP view and contralateral oblique angulation with caudal tilt was utilized to optimize visualization of the inferior and medial joint line representing the posterior portion of the joint. Local anesthesia was established by infiltration with approximately 5 mL of 2% lidocaine via a 1-1/2 inch 27-gauge needle. A 22-gauge 3.5 inch Quincke spinal needle was advanced until the needle entered the inferior third of the joint space approximately 1cm cephalad from its most inferior point. In the AP view, 0.5 mL of Omnipaque 300 contrast medium was injected after negative aspiration for CSF, blood or other bodily fluid, showing appropriate intra-articular spread of contrast without evidence of intravascular, perineural or intrathecal placement. A 1.5 mL solution containing 5 mg of dexamethasone in 0.5% PF bupivacaine was injected after repeat negative aspiration. Appropriate spread of the injectate was confirmed with washout of previous injected contrast. No parasthesias were elicited. Needle was removed completely intact without difficulty. The same exact procedure was repeated for all remaining levels on the contralateral side, left SI joint, modified as necessary to accommodate for the new target location with identical findings/results and no evidence of complication. Images were saved and documented in the patient chart. Patient's skin was cleansed and sterile bandage applied. The patient tolerated the procedure well. The patient was transported to the recovery area in stable condition where they were observed for an appropriate amount of time prior to discharge, without evidence of complication. The patient was instructed to avoid excessive activity for the next 48 hours, including climbing and frequent use of stairs. Showers only for 48 hours. They were instructed not to drive or operate heavy machinery for 24 hours. They are to monitor for severe headaches, fevers, chills, night sweats, erythema/swelling at the site or any other signs of infection, bleeding/bruising, bowel or bladder changes as well as new pain, weakness or numbness in the upper or lower extremity. Should they notice these changes, they are instructed to call our office immediately or report directly to the nearest Emergency Department if no answer or if after posted office hours. COMPLICATIONS: None COMMENTS: None CONTRAST WASTED: 29mL Omnipaque 300. Complications No immediate complications Condition Stable Disposition Same day [facility] Billing Surgery - Charge Forward: Surgery Billing
[2025-11-08 08:32] VITALS: BP 152/85; PULSE 60; RESP 18; O2SAT 97
[2025-11-08] MEDS: LIDOCAINE 1% PF INJ 5 ML VIAL INFILTRATE (08:33)
[2025-11-08] MEDS: DEXAMETHASONE SODIUM PHOSP/PF 10 MG/ML 1 ML VIAL (08:34)
[2025-11-08] MEDS: BUPivacaine HCL 0.5% 10 ML AMP INFILTRATE (08:34)
[2025-11-08 08:36] VITALS: BP 142/86; PULSE 66; RESP 18; O2SAT 97
[2025-11-08 08:41] VITALS: BP 155/97; PULSE 70; RESP 16; O2SAT 100
== END 2025-11-08 08:50 | disposition home or self-care (01) ==
PROVIDERS: PCP Family Medicine; Visit Provider Anesthesiology Pain Medicine
PROC: (CPT 27096; principal; 2025-11-08 08:35)
DX: M46.1 Sacroiliitis, not elsewhere classified (principal)
CPT/HCPCS: 27096 ×2; 99199; G0260